=== PATIENT | male | born 1980 ===

== ENCOUNTER → 2018-01-10 15:57 | Outpatient (REF) | payer MEDICAID, SELFPAY ==
[2018-01-10 21:30] LABS: ALT 58 U/L (12-78); AST 29 U/L (15-37); Albumin 4.5 g/dL (3.4-5.0); Alkaline Phosphatase 48 U/L (46-116); Anion Gap 13.4 mmol/L (3-11); BUN 10 mg/dL (7-18); Bilirubin, Total 0.5 mg/dL (0.2-1.0); CO2 23.6 mmol/L (21.0-32.0); CREATININE 0.74 mg/dL (0.70-1.30); Calcium 9.4 mg/dL (8.5-10.1); Chloride 102 mmol/L (98-107); Glucose 78 mg/dL (70-100); Potassium 4.3 mmol/L (3.5-5.1); Sodium 139 mmol/L (136-145)
[2018-01-12 15:20] LABS: Lyme Ab w Rflx to Lyme Confirm Negative
== END ==
LOC: NCHCN 15:57
PROVIDERS: PCP Internal Medicine; Visit Provider Nurse Practitioner
DX: E87.6 Hypokalemia (principal); R55 Syncope and collapse; I45.10 Unspecified right bundle-branch block; R01.1 Cardiac murmur, unspecified
CPT/HCPCS: 80053; 86618

== ENCOUNTER → 2018-01-18 04:23 | Outpatient (CLI) | payer MEDICAID, SELFPAY ==
--- NOTE | 2018-01-22 10:36 | HOLTER_ITS ---
Date of Report: January 22, 2018 Baseline Rhythm: Sinus Rare single PAC. No SVT or atrial fibrillation. Rare single PVC. No VT. Nocturnal heart rates as low as 50-55 bpm, sinus bradycardia. No symptoms. Average heart rate 72 bpm. /ct D/T: 01/22
== END ==
PROVIDERS: PCP Internal Medicine; Visit Provider Nurse Practitioner
DX: R55 Syncope and collapse (principal); R01.1 Cardiac murmur, unspecified; I45.10 Unspecified right bundle-branch block
CPT/HCPCS: 93225

== ENCOUNTER → 2018-01-22 10:09 | Outpatient (CLI) | payer MEDICAID, SELFPAY | PROVIDERS: PCP Internal Medicine; Visit Provider Nurse Practitioner | DX: I49.1 Atrial premature depolarization (principal); I49.3 Ventricular premature depolarization; R00.1 Bradycardia, unspecified | CPT/HCPCS: 93226 ==

== ENCOUNTER → 2018-01-30 01:44 | Outpatient (CLI) | payer MEDICAID, SELFPAY ==
--- NOTE | 2018-01-30 12:30 | MERGE_ITS ---
*[facility]* *[facility]* [address] [place] [address] Date of study: 01/30/2018 Transthoracic Echocardiography M-mode, complete 2D, complete spectral Doppler, and color Doppler *STUDY CONCLUSIONS* Summary: 1. Left ventricle: The cavity size was normal. Wall thickness was normal. Systolic function was at the lower limits of normal. The estimated ejection fraction was 50-55%. Wall motion was normal; there were no regional wall motion abnormalities. The outflow tract showed no obstruction. 2. Aortic valve: There was no stenosis. 3. Right ventricle: The cavity size was normal. Wall thickness was normal. Systolic function was normal. 4. Pulmonary arteries: Pulmonary systolic pressure was within the normal range, in the range of 25mm Hg to 30mm Hg. *PATIENT PRESENTATION* Height: 177.8cm ((70in) ) S/D Pressure: 117 / 73 Weight: 90.7kg ((199.6lb) ) BSA: 2.09m^2 Test start time: 12:35 PM. Test stop time: 01:35 PM. PERFORMING Unknown PERFORMING [facility] TALLOW MAKER RT Jacqueline Andrade)(CT), [facility] ORDERING Valery Coleman REFERRING Valery Coleman *PROCEDURE DATA* Procedure information: The patient was identified by two identifiers. This study was interpreted by [facility]. Pertinent images and digital data are archived for permanent storage and are available for subsequent review. No prior study was available for comparison. Study status: Routine. Transthoracic echocardiography. M-mode, complete 2D, complete spectral Doppler, and color Doppler. A Transthoracic Echocardiogram was performed. Scanning was performed from the parasternal, apical, subcostal, and suprasternal notch acoustic windows. Images were obtained using an [id number] cardiac ultrasound machine. Image quality was adequate. Study completion: The patient tolerated the procedure well. There were no complications. History: PMH: Syncope. RBBB, murmur. *CARDIAC ANATOMY* Left ventricle: The cavity size was normal. Wall thickness was normal. Systolic function was at the lower limits of normal. The estimated ejection fraction was 50-55%. Wall motion was normal; there were no regional wall motion abnormalities. The outflow tract showed no obstruction. Diastolic parameters were normal. Aortic valve: Trileaflet; normal thickness leaflets. Mobility was not restricted. Doppler: Transvalvular velocity was within the normal range. There was no stenosis. There was no significant regurgitation. VTI ratio of LVOT to aortic valve: 0.61. Valve area (VTI): 2.5cm^2. Indexed valve area (VTI): 1.2cm^2/m^2. Peak velocity ratio of LVOT to aortic valve: 0.62. Valve area (Vmax): 2.6cm^2. Indexed valve area (Vmax): 1.2cm^2/m^2. Mean velocity ratio of LVOT to aortic valve: 0.72. Valve area (Vmean): 3cm^2. Indexed valve area (Vmean): 1.4cm^2/m^2. Mean gradient (S): 5.3mm Hg. Peak gradient (S): 11.1mm Hg. Aorta: Aortic root: The aortic root was normal in size. Ascending aorta: The ascending aorta was normal in size. Mitral valve: Mildly thickened leaflets. Mobility was not restricted. Doppler: Transvalvular velocity was within the normal range. There was no evidence for stenosis. There was trivial regurgitation. Valve area by pressure half-time: 3.9cm^2. Indexed valve area by pressure half-time: 1.9cm^2/m^2. Left atrium: The atrium was normal in size. Right ventricle: The cavity size was normal. Wall thickness was normal. Systolic function was normal. Pulmonic valve: Structurally normal valve. Doppler: Transvalvular velocity was within the normal range. There was no evidence for stenosis. There was trivial regurgitation. Peak gradient (S): 4mm Hg. Tricuspid valve: Structurally normal valve. Doppler: Transvalvular velocity was within the normal range. There was no evidence for stenosis. There was no significant regurgitation. Pulmonary artery: Pulmonary systolic pressure was within the normal range, in the range of 25mm Hg to 30mm Hg. Right atrium: The atrium was normal in size. Pericardium: There was no pericardial effusion. Systemic veins: Inferior vena cava: Well visualized. The vessel was dilated. The respirophasic diameter changes were in the normal range (greater than or equal to 50%). Measurements Left ventricle Value Reference LV ID, ED, PLAX 5.7 cm 3.5 - 6.0 LV ID, ES, PLAX (H) 4.2 cm 2.1 - 4.0 LV PW thickness, ED, PLAX 1.0 cm LV end-diastolic volume, 1-p A2C 117 ml LV ejection fraction, 1-p A2C 56 % LV end-diastolic volume, 1-p A4C 111 ml LV ejection fraction, 1-p A4C 50 % LV e', lateral 0.172 m/sec LV E/e', lateral 4 LV e', medial 0.099 m/sec LV E/e', medial 7 LV e', average 0.136 m/sec LV E/e', average 5 Ventricular septum Value Reference IVS thickness, ED, PLAX 0.9 cm LVOT Value Reference LVOT ID, A-P 2.3 cm LVOT area 4.2 cm^2 LVOT peak velocity, S 1.04 m/sec LVOT mean velocity, S 0.76 m/sec LVOT VTI, S 22.5 cm LVOT peak gradient, S 4.3 mm Hg LVOT mean gradient, S 2.5 mm Hg Stroke volume (SV), LVOT DP 94 ml Stroke index (SV/bsa), LVOT DP 45 ml/m^2 Aortic valve Value Reference Aortic valve peak velocity, S 1.7 m/sec Aortic valve mean velocity, S 1.05 m/sec Aortic valve VTI, S 37.0 cm Aortic mean gradient, S 5.3 mm Hg Aortic peak gradient, S 11.1 mm Hg VTI ratio, LVOT/AV 0.61 Aortic valve area, VTI 2.5 cm^2 Velocity ratio, peak, LVOT/AV 0.62 Aortic valve area, peak velocity 2.6 cm^2 Velocity ratio, mean, LVOT/AV 0.72 Aortic valve area, mean velocity 3 cm^2 Aortic valve area/bsa, mean velocity 1.4 cm^2/m^2 Aorta Value Reference Aortic root ID, ED 3.2 cm Ascending aorta ID, A-P, S 3.0 cm Left atrium Value Reference LA ID, A-P, ES 3.6 cm LA ID/bsa, A-P 1.7 cm/m^2 <=2.2 LA area, ES, A4C 19.5 cm^2 8.8 - 23.4 LA area, ES, A2C 17 cm^2 LA volume/bsa, ES, 1-p A4C 30 ml/m^2 LA volume, ES, 2-p 50 ml LA volume/bsa, ES, 2-p 24 ml/m^2 LA/aortic root ratio 1.12 Mitral valve Value Reference Mitral E-wave peak velocity 0.7 m/sec Mitral A-wave peak velocity 0.46 m/sec Mitral deceleration time 194 ms 150 - 230 Mitral pressure half-time 56 ms Mitral E/A ratio, peak 1.52 Mitral valve area, PHT, DP 3.9 cm^2 Pulmonary veins Value Reference Pulmonary vein peak velocity, S 0.39 m/sec Pulmonary vein peak velocity, D 0.53 m/sec Pulmonary vein velocity ratio, peak, 0.74 S/D Tricuspid valve Value Reference Tricuspid regurg peak velocity 2.4 m/sec Tricuspid peak RV-RA gradient 22.3 mm Hg Right atrium Value Reference RA area, ES, A4C 14.9 cm^2 8.3 - 19.5 Pulmonic valve Value Reference Pulmonic peak gradient, S 4 mm Hg Legend: (L) and (H) daphne values outside specified reference range. I have personally reviewed the images and have reviewed and edited the reported findings. Electronically signed by Amor Broderick 01/30/2018 14:40
== END ==
PROVIDERS: PCP Internal Medicine; Visit Provider Nurse Practitioner
DX: R55 Syncope and collapse (principal); I45.10 Unspecified right bundle-branch block; R01.1 Cardiac murmur, unspecified
CPT/HCPCS: 93306

== ENCOUNTER 2020-12-04 09:04 | Outpatient (REF) | payer SELFPAY ==
[2020-12-04 21:47] LABS: Calculated LDL 179 mg/dL (<100); Cholesterol 259 mg/dL (<200); HDL Cholesterol 63 mg/dL (40-60); Triglyceride 88 mg/dL (<150)
== END 2020-12-04 09:05 | disposition home or self-care (01) ==
LOC: NCHCN 09:04
PROVIDERS: PCP Internal Medicine; Visit Provider Internal Medicine
DX: Z00.00 Encounter for general adult medical examination without abnormal findings (principal); Z13.220 Encounter for screening for lipoid disorders
CPT/HCPCS: 80061

== ENCOUNTER 2021-05-12 02:46 | Outpatient (CLI) | payer SELFPAY ==
[2021-05-13 09:41] LABS: Syphilis Serology (RPR) Negative (Negative)
[2021-05-13 10:45] LABS: Hepatitis B Surface Ag Negative (Negative)
[2021-05-13 11:19] LABS: Hepatitis C Ab w Rflx HCV PCR Negative (Negative)
[2021-05-13 11:23] LABS: HIV-1/2 Ag & Ab Screen Negative (Negative)
[2021-05-13 13:35] LABS: CMV Ab, IgM Negative (Negative)
[2021-05-13 15:34] LABS: Chlamydia Result Negative (Negative); GC Result Negative (Negative)
[2021-05-14 01:06] LABS: HTLV-I/II Ab Screen Negative (Negative)
[2021-05-19 13:26] LABS: Hep B Core Antibody Negative (Negative)
== END 2021-05-12 02:47 | disposition home or self-care (01) ==
LOC: LBO 02:46
PROVIDERS: PCP Internal Medicine; Visit Provider Obstetrics & Gynecology Reproductive Endocrinology
DX: Z11.3 Encounter for screening for infections with a predominantly sexual mode of transmission (principal); Z11.4 Encounter for screening for human immunodeficiency virus [HIV]; Z11.59 Encounter for screening for other viral diseases
CPT/HCPCS: 36415; 86704; 86790; 86803; 87340; 87389; 87491; 87591; 86592; 86644; 86645

== ENCOUNTER 2021-12-07 15:46 | Outpatient (REF) | payer OTHER, SELFPAY ==
[2021-12-08 11:14] LABS: Lyme Ab w Rflx to Lyme Confirm Negative (Negative)
== END 2021-12-07 15:47 | disposition home or self-care (01) ==
LOC: NCHCN 15:46
PROVIDERS: PCP Internal Medicine; Visit Provider Internal Medicine
DX: Z00.00 Encounter for general adult medical examination without abnormal findings (principal); M25.561 Pain in right knee
CPT/HCPCS: 86618

== ENCOUNTER 2021-12-08 19:31 | Emergency (ER) | payer OTHER, SELFPAY ==
[2021-12-08 19:44] VITALS: BP 129/66; PULSE 74; RESP 14; TEMP 36.7; O2SAT 98
--- NOTE | 2021-12-08 20:30 | DI.RAD_ITS ---
Exam(s) XR FOOT RT COMPLETE EXAM: XR FOOT RT COMPLETE CLINICAL HISTORY: jackhammered great toe, pain. TECHNIQUE: 2D digital imaging was performed of the right foot. Three images were obtained. AP, obl ique and lateral views were obtained. COMPARISON: No exams were available for comparison FINDINGS: BONES: No acute fracture is present. No bony destructive lesion is seen. JOINTS: No dislocation present. SOFT TISSUE: Normal. IMPRESSION: Unremarkable radiographs of the right foot. DATA REPOSITORY: RADIATION DOSE DELIVERED:
--- NOTE | 2021-12-08 20:40 | ED.GENADUL_ITS ---
Discharge Plan Disposition Patient Disposition: HOME Condition: Stable Discharge Details Chief Complaint: Orthopedic Clinical Impression: Crush injury, toe Primary Care Provider: Terrance Alves ED Provider: Donnell Colin Home Meds and New Rx's Prescriptions: No Action epinephrine [EpiPen 2-Toi] 0.3 MG/0.3 ML auto-injector 0.3 mg IJ PRN PRNQty: 1 0RF Discharge Instructions Instructions: Foot Contusion (ED) Additional Instructions: Please use hard soled shoe and crutches as needed. Please ice and elevate foot, use ibuprofen and/or acetaminophen as needed. Please follow-up with orthopedic surgery if your toe is not healing or beginning to feel better within the next week if you develop acute worsening pain swelling change in temperature or appearance of toe or any worsening symptoms please return to the emergency department for evaluation. Medical Decision Making 41-year-old male presents today after sustaining injury with jackhammer to the great toe, which resolved and still has great toe sneaker while working today, pain localized to the distal aspect of great toe, no deformity, patient has strong DP pulse, sensation intact, motor function in foot and ankle intact, no fibular head tenderness, soft compartments, warm well perfused ambulatory without assistance, does have mild to moderate subungual hematoma. Patient multiple doses of naproxen before arrival. Is extremely sensitive to opioid analgesia. Will acetaminophen, will obtain x-ray, high clinical suspicion for distal phalanx fracture versus less likely dislocation, at this point do not want to trephinate subungual hematoma for fear complicating fracture from right close to an open fracture. We will continue with pain control analgesia elevation, likely will refer to orthopedic surgery, hard soled shoe and crutches as needed. 21: 52 no evidence of fracture on x-ray, patient is feeling somewhat better after Tylenol, counseled extensively that initial x-rays are sometimes insensitive to acute fracture, consider bony contusion versus occult fracture. Neurovascular exam intact. Patient is able to ambulate. Will be given [place] shoe and orthopedic follow-up as needed. Given strict return precautions, instructed to elevate ice and rest foot. HPI General Date/Time Provider Initiated Documentation: 12/08/21 20:23 . HPI Narrative: 41-year-old male sustained trauma to his right great toe while working today, dropped an active jackhammer on his right great toe; able to bear weight but with persistent pain. No other injuries. Related Data Home Medications Medication Instructions Recorded Confirmed epinephrine 0.3 mg/0.3 mL 0.3 mg (0.3 mL) IJ PRN PRN ##1 01/05/18 12/08/21 injection, auto-injector (EpiPen 2-Toi) Previous Rx's Medication Instructions Recorded epinephrine 0.3 mg/0.3 mL 0.3 mg (0.3 mL) IJ PRN PRN ##1 01/05/18 injection, auto-injector (EpiPen 2-Toi) Allergies Allergy/AdvReac Type Severity Reaction Status Date / Time No Known Allergies Allergy Unverified 12/08/21 19:47 General Stated Complaint: Orthopedic HERMAN: 4 Review of Systems Narrative: Review of Systems Constitutional: negative Eyes: negative ENT: negative Cardiovascular: negative Respiratory: negative Gastrointestinal: negative : negative Musculoskeletal: Right great toe pain Skin: negative Neurologic: negative Psych: negative PFSH All Active Problems (Updated 12/08/21 @ 21:56 by Donnell Colin MD) Crush injury, toe (Acute) Social History Smoking/Tobacco Use Status: Never Smoking risk assessment performed?: Yes Alcohol Intake: current Alcohol Intake frequency: a few times a week Alcohol type: beer Drug use: Never Substance use type: does not use Do you feel safe at home: Yes Do you feel safe in your relationship?: Yes Exam Narrative Exam Narrative: Physical Examination General: alert, awake, cooperative, resting comfortably, no acute distress HEENT: normocephalic, atraumatic; PERRL, EOM intact, conjunctiva normal; no nasal discharge; moist mucous membranes, oral and pharyngeal mucosa normal, tolerating secretions Neck: supple, trachea midline; full ROM Chest: normal to inspection Respiratory: normal respiratory effort, speaking in full sentences, clear to auscultation, no wheezing, rales or rhonchi Cardiac: regular rate, regular rhythm, S1S2 intact, no murmurs rubs or gallops GI: abdomen soft, non-tender, non-distended; no palpable mass or hepatosplenomegaly Skin: no lesions, rashes or trauma appreciated Neuro: AAOx3, normal speech, moving all extremities Extremities: Sensation and mobility in toes foot and ankle intact, no malleoli or tenderness to calcaneal tenderness, no foot deformity, patient does have some swelling to distal aspect of great toe, does have mild to moderate subungual hematoma under the great toenail, good capillary refill warm well perfused soft compartments ambulatory without assistance, no fibular head tenderness Psych: Appropriate mood and affect Course Vital Signs Vital signs: Vital Signs Temperature 36.7 C 12/08/21 19:44 Pulse 74 12/08/21 19:44 Respiratory Rate 14 12/08/21 19:44 Blood Pressure 129/66 12/08/21 19:44 Pulse Oximetry 98 12/08/21 19:44 Temperature 36.7 C 12/08/21 19:44 Temperature Source Temporal Artery Scan 12/08/21 19:44 Pulse 74 12/08/21 19:44 Respiratory Rate 14 12/08/21 19:44 Respiratory Effort Non-Labored 12/08/21 19:47 Blood Pressure 129/66 12/08/21 19:44 Blood Pressure Position Sitting 12/08/21 19:44 Pulse Oximetry 98 12/08/21 19:44 Oxygen Delivery Method Room Air 12/08/21 19:44 Oxygen Flow Rate 0 12/08/21 19:44 Pain Level 10 12/08/21 19:47 PAWSS Have you Been Recently Intoxicated or Drunk Within the Last 30 days?: No Have you Ever Experienced Previous Episodes of Alcohol Withdrawal?: No Have you ever Experienced Withdrawal Seizures?: No Have you ever Experienced Delirium Tremens(DT)s?: No Have you ever undergone Alcohol Rehabilitation Treatment (i.e, inpt ot outpatient treatment programs)?: No Have you ever Experienced Blackouts?: No Have you ever Combined Alcohol with other Downers within the last 90 days?: No Have you ever Combined Alcohol with any other Substance of Abuse during the last 90 days?: No Positive Blood Alcohol level on Presentation? [PCS.BAL]: No Evidence of Increased Autonomic Activity (i.e. HR>120, tremor, sweating, agitation, nausea)?: No Result: 0
[2021-12-08] MEDS: Acetaminophen 325 MG TAB 650 MG PO (20:44)
--- NOTE | 2021-12-08 21:38 | DI.VRAD_ITS ---
PROCEDURE INFORMATION: Exam: XR Right Foot Exam date and time: 12/08/2021 8:48 PM Age: 41 years old Clinical indication: Other: Jackhammered great toe, pain TECHNIQUE: Imaging protocol: Radiologic exam of the Right foot. Views: 3 or more views. COMPARISON: No relevant prior studies available. FINDINGS: Bones/joints: Small os tibialis externum incidentally noted. No fractures. Normal alignment is maintained in the midfoot, hindfoot, and forefoot. Joint spaces are well-maintained. No blastic or lytic lesions. No gross ankle joint effusion. No hindfoot coalition. Soft tissues: No periostitis or osteolysis. No gross soft tissue abnormalities. No radiopaque foreign bodies. Other findings: Normal mineralization. IMPRESSION: No acute findings. Dictated and Authenticated by: Ta Kuo MD. Ordering:LINH Jacobo MD
== END 2021-12-08 22:06 | disposition home or self-care (01) ==
PROVIDERS: Emergency Provider Emergency Medicine; PCP Internal Medicine
DX: S97.111A Crushing injury of right great toe, initial encounter (principal); S90.111A Contusion of right great toe without damage to nail, initial encounter; W31.89XA Contact with other specified machinery, initial encounter; Y99.0 Civilian activity done for income or pay
CPT/HCPCS: 99283; 73630; 99282

== ENCOUNTER 2022-03-10 03:02 | Outpatient (CLI) | payer OTHER, SELFPAY ==
--- NOTE | 2022-03-10 | DI.RAD_ITS ---
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 TECHNIQUE: 2D digital imaging was performed of the right shoulder. Five images were obtained. AP, Grashey, Y-view and axillary views were obtained. COMPARISON: No exams were available for comparison FINDINGS: BONES: No acute fracture is present. No bony destructive lesion is seen. JOINTS: No dislocation present. SOFT TISSUE: Normal. IMPRESSION: Unremarkable radiographs of the right shoulder. DATA REPOSITORY: RADIATION DOSE DELIVERED:
--- NOTE | 2022-03-10 | DI.RAD_ITS ---
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 TECHNIQUE: 2D digital imaging was performed of the left shoulder. Five images were obtained. AP, G rashey, Y-view and axillary views were obtained. COMPARISON: No exams were available for comparison FINDINGS: BONES: No acute fracture is present. No bony destructive lesion is seen. There is a small chronic oss icle inferior to the glenoid. JOINTS: No dislocation present. SOFT TISSUE: Normal. IMPRESSION: Unremarkable radiographs of the left shoulder. DATA REPOSITORY: RADIATION DOSE DELIVERED:
== END 2022-03-10 03:22 ==
LOC: DI 03:02
PROVIDERS: PCP Internal Medicine; Visit Provider Internal Medicine
DX: M25.511 Pain in right shoulder (principal); M25.512 Pain in left shoulder
CPT/HCPCS: 73030

== ENCOUNTER 2022-07-08 15:30 | Outpatient (REF) | payer OTHER, SELFPAY ==
[2022-07-08 21:12] LABS: HCT 43.1 % (40.0-50.0); HGB 14.4 g/dL (13.5-17.5); MCH 29.9 pg (27.0-33.0); MCHC 33.4 % (32.0-36.0); MCV 89 fL (80-95); MPV 10.3 fL (8.0-11.0); Platelet Count 305 10^3/uL (130-400); RBC 4.82 10^6/uL (4.36-5.78); RDW 13.3 % (11.8-14.1); RDW-SD 43.6 fL; WBC 7.28 10^3/uL (4.4-10.8)
[2022-07-08 21:35] LABS: ALT 67 U/L (16-63); AST 35 U/L (15-37); Albumin 4.2 g/dL (3.4-5.0); Alkaline Phosphatase 53 U/L (46-116); Anion Gap 5.9 mmol/L (3-11); BUN 12 mg/dL (7-18); Bilirubin, Total 0.4 mg/dL (0.2-1.0); CO2 29.1 mmol/L (21.0-32.0); CREATININE 0.9 mg/dL (0.70-1.30); Calcium 9.6 mg/dL (8.5-10.1); Chloride 103 mmol/L (98-107); Estimated GFR 109.36 (mL/min/1.73m2); Glucose 94 mg/dL (74-106); Magnesium 1.9 mg/dL (1.8-2.4); Potassium 4.3 mmol/L (3.5-5.1); Sodium 138 mmol/L (136-145); TSH (W/Ref FT4) 0.83 uIU/mL (0.36-3.74); Total Protein 7.4 g/dL (6.4-8.2)
== END 2022-07-08 15:31 | disposition home or self-care (01) ==
LOC: NCHCN 15:30
PROVIDERS: PCP Internal Medicine; Visit Provider Family Medicine
DX: I49.9 Cardiac arrhythmia, unspecified (principal)
CPT/HCPCS: 80053; 85027; 83735; 84443

== ENCOUNTER 2022-08-18 08:06 | Outpatient (CLI) | payer OTHER, SELFPAY ==
--- NOTE | 2022-08-18 10:34 | W.CARDEVENT ---
Date of service: 08/18/22 Time of Service: 10:34 Cardiac Event Recorder Referring Provider:: Terrance Alves Indications:: Cardiac arrhythmia Cardiac Event Note: This is a 30-day lan support specialist. Predominant rhythm is sinus. Average heart rate was 67. Minimum 55, maximum 137 There were rare ventricular ectopic beats. There was one 3 beat run of nonsustained ventricular tachycardia which occurred during sleep . there was no atrial fibrillation, no high-grade AV block, no SVT, no pauses greater than 3 seconds Patient's symptoms were reported which corresponded both to sinus rhythm, and to rare PVCs
== END 2022-08-18 08:07 | disposition home or self-care (01) ==
LOC: CARDOPNVT 08:06
PROVIDERS: PCP Internal Medicine; Visit Provider Internal Medicine Cardiovascular Disease
DX: I49.9 Cardiac arrhythmia, unspecified (principal)

== ENCOUNTER 2023-07-10 18:16 | Outpatient (REF) | payer OTHER, SELFPAY ==
--- OUTSIDE RECORDS SUMMARY | 2023-07-10 18:23 | XMS_ITS | Continuity of Care Document ---
Author Name Unknown Organization [facility] Ambulatory Clinics Address [address] [place] [address] Care Team Providers Care Refinery Technician Name Role Phone JOCY MELGAR Primary Care Physician Encounter [facility] NBR [id number] Date(s): 06/27/23 - 06/27/23 [facility] [address] [place] [address] [place] Discharge Disposition: Home Allergies, Adverse Reactions, Alerts No Known Medication Allergies Assessment and Plan Future Appointments Medications Advair HFA 230 mcg-21 mcg/inh inhalation aerosol 2 puffs, Inhale, BID, # 1 EA, 0 Refill(s), Pharmacy: [facility] #[id number] Start Date: 05/20/23 Stop Date: 06/19/23 Status: Ordered azithromycin 250 mg oral tablet See Instructions, Oral, Daily, Take 2 tabs on day 1 and 1 tab on day 2-5, # 6 tab, 0 Refill(s), Pharmacy: [facility] #[id number] Start Date: 05/20/23 Status: Ordered Tessalon Perles 100 mg oral capsule 100 mg = 1 cap, Oral, TID, PRN as needed for cough, # 21 cap, 0 Refill(s), Pharmacy: [facility] #[id number] Start Date: 05/20/23 Stop Date: 05/27/23 Status: Ordered Patient Care team information Care Team Personnel Name: JOCY MELGAR Position: No Access Member Role: Primary Care Physician Address: Address: [address] [place] [id number] Care Team Related Persons Name: BERNARD VIVAR Name: BERNARD VIVAR Address: Home [address] [place] [address] Address: Mailing [address] [place], [place] [id number]
--- OUTSIDE RECORDS SUMMARY | 2023-07-10 18:23 | XMS_ITS | Continuity of Care Document ---
Author Name Unknown Organization [facility] Ambulatory [facility]ics Address [address] [place] [address] Care Team Providers Care Zmt Operator Name Role Phone JOCY MELGAR Guera Primary Care Physician Encounter [facility] NBR [id number] Date(s): 06/30/23 - 06/30/23 [facility] [address] [place], [place] [address] Encounter Diagnosis Rupture of medial head of gastrocnemius(Discharge Diagnosis) - 06/30/23 Discharge Disposition: Home or Self Care Attending Physician: Gustavo Hayes MD Referring Physician: VALENTINO BAKER NP Allergies, Adverse Reactions, Alerts No Known Medication Allergies Substance Reaction Severity Status Bees/Stinging Insects Unknown Active Medications metoprolol succinate 25 mg =, 0 Refill(s) Start Date: 06/30/23 Status: Ordered Problem List Condition Confirmation Course Effective Dates Status H ealth Status Informant Rupture of medial head of gastrocnemius Confirmed Active Vital Signs Most recent to oldest [Reference Range]: 1 Peripheral Pulse Rate [60-100 bpm] 67 bp m (06/30/23 9:15 AM) Blood Pressure [90-140/60-90 mmHg] 124/8 0mmHg (06/30/23 9:15 AM) Mean Arterial Pressure, Cuff [70-110 mmH g] 95 mmHg (06/30/23 9:15 AM) Weight 109.77 kg (06/30/23 9:15 AM) Weight Measured (lbs) 242.001 lb (06/30/23 9:15 AM) Weight Dosing 109.770 kg (06/30/23 9:15 AM) Height 177.8 cm (06/30/23 9:15 AM) Height/Length Measured (inches) 70 inch (06/30/23 9:15 AM) BSA Measured 2.33 m2 (06/30/23 9:15 AM) Body Mass Index 34.72 kg/m2 (06/30/23 9:15 AM) Social History Social History Type Response Tobacco Never tobacco user T obacco Use:. Sex Physician Outpatient Note * Gustavo Hayes MD: PERFORM Event Display: Office Clinic Note Physician Authored Date: [id number] MARLEN VIVAR :1980 Age:43 years Sex:Male Visit Date:06/30/2023 Primary Care Physician: JOCY MELGAR Chief Complaint Right Calf pain History of Present Illness Patient is a 43-year-old gentleman who??5 days ago was snowboarding??it was??fair amount of powder it was??coming across the mountain leaning forward when he felt??a sharp pain to the??back of his??right calf,??he said he felt as if somebody had taken a bat and hit him in that area.?? He tried to get down the mountain??but??said he fell several times and ultimately??was brought down on toboggan. ??He then went to urgent care??and comes in today for evaluation. ??He does note he is significantlyimproved since??the day of injury but still??is having to walk on the side of his foot.?? When asked to localize the pain he points to the proximal aspect of the gastrocnemius. Physical Exam Vitals & Measurements HR:??67??(Peripheral)?? BP:??124/80?? SpO2:??96%?? HT:??177.8??cm?? WT:??109.77??kg?? BMI:??34.72?? Pain Score:??0?? BSA:??2.33?? Examination of B ankles:?? Inspection: There is no erythema ecchymosis or edema. There is no calor to palpation. ? Palpation: There is no tenderness to palpation over the bony landmarks, including the anterior tibiotalar joint, the medial and lateral malleolus, the navicular and the base of the fifth metatarsal. ? Range of motion: Range of motion is normal in plantar flexion and dorsiflexion. It is normal in inversion and eversion. Talar tilt testing is negative. ? Strength testing: Strength is 5 out of 5 in all planes of motion. ? Vascular exam: Posterior tibialis and dorsalis pedis pulses are +2. Distal capillary refill is instantaneous. ? Neurologic exam: Light touch sensation is intact in all dermatomes. ? Gait testing: Gait is nonantalgic. There is minimal ankle eversion on weightbearing. ?? On palpation of the Achilles??is felt to be??intact it is nontender to palpation patient has 5 out of 5 plantarflexion strength without difficulty or pain.?? He does have tenderness proximally over the medial head of the gastroc, the knee has a full painless range of motion no effusion no instability Assessment/Plan 1.??Rupture of medial head of gastrocnemius??S86.119A Patient with what I believe is a??tear of the medial head of the gastroc, I had a??discussion with the patient about??the anatomy, treatment for this and long- term outcomes. ??I have reassured the patient that within 2 or 3 weeks likely his pain will resolve and he will go back to full activities with no disability whatsoever.?? Right now he is really struggling because of the pains on the put him in a cam walker boot??and he will wean out of this as??he is??able and will let pain decide.?? If in 3 to 4 weeks he still having pain he will return to see me. Problem List/Past Medical History Ongoing Rupture of medial head of gastrocnemius Historical No qualifying data Medications metoprolol succinate, 25 mg Allergies Bees/Stinging Insects No Known Medication Allergies Social History Electronic Cigarette/Vaping Electronic Cigarette Use: Never. Tobacco Never tobacco user Tobacco Use:. Electronically Signed on 06/30/23 09:55 AM Gustavo Hayes MD Patient Care team information Care Team Personnel Name: JOCY MELGAR Position: No Access Member Role: Primary Care Physician Address: Address: [address] [place] [id number] [place] [address] Care Team Related Persons Name: BERNARD VIVAR Name: BERNARD VIVAR Address: Home [address] [place] [address] Address: Mailing [address] [place], [place] [id number]
--- OUTSIDE RECORDS SUMMARY | 2023-07-10 18:23 | XMS_ITS | Continuity of Care Document ---
Author Name Unknown Organization [facility] Address [address] [place] [address] Care Team Providers Care Algorithm Developer Name Role Phone Terrance Alves Guera Primary Care Physician [phone] Encounter [facility] FIN NBR [id number] Date(s): 05/06/22 - 05/06/[address] [address] Discharge Disposition: Home or Self Care Attending Physician: SANTHOSH NORMAN Admitting Physician: SANTHOSH NORMAN Referring Physician: SANTHOSH NORMAN Assessment and Plan Diagnostic Tests Pending * HTLV-I/II Antibodies, Qual LC 05/06/22 Results Laboratory List Name Date ABO/Rh Echo 05/06/22 CMV Abs IgG/IgM LC 05/06/22 Chlamydia trachomatis (GeneXpert) HIV Ag/Ab Combo 1/2 05/06/22 Hepatitis B Surface Antigen 05/06/22 Hepatitis C Antibody 05/06/22 Syphilis Abs Qual 05/06/22 Most recent to oldest [Reference Range]: 1 Hep Bs Ag [Non Reactive] Non Reactive (05/06/22 11:22 AM) Hep C Ab [Non Reactive] Non Reactive (05/06/22 11:22 AM) Cytomegalovirus (CMV) Ab, IgG LC [0.00-0 .59 unit/mL] <0.60 unit/mL 1 *NA* (05/06/22 11:22 AM) Cytomegalovirus (CMV) Ab, IgM LC [0.0-29 .9 AU/mL] <30.0 AU/mL 2 *NA* (05/06/22 11:22 AM) Chlamydia trachomatis DNA -GeneXpert [No t Detected] Not Detected (05/06/22 11:22 AM) Syphilis Abs Qual [Non Reactive] Non [place] ctive (05/06/22 11:22 AM) ABO/Rh Echo A POS *Unknown* (05/06/22 11:22 AM) HIV 1/2 Ag/Ab Combo by CMIA [Non Reactiv e] Non Reactive (05/06/22 11:22 AM) 1Result Comment: Negative <0.60 Equivocal 0.60 - 0.69 Positive >0.69 2Result Comment: Negative <30.0 Equivocal 30.0 - 34.9 Positive >34.9 A positive result is generally indicative of acute infection, reactivation or persistent IgM production. Performed At: RN [facility] [address] [id number] Yoav Doan MD Ph:[phone] Patient Care team information Personnel Name: Terrance Alves Address: Address: [address] [place] [id number] [place] [address]
--- OUTSIDE RECORDS SUMMARY | 2023-07-10 18:23 | XMS_ITS | Continuity of Care Document ---
Author Name Unknown Organization [facility] Address [address] [place] [address] Care Team Providers Care Intervention Analyst Name Role Phone TALIA JOCY Lynne Primary Care Physician [phone] Encounter [facility] FIN NBR [id number] Date(s): 05/20/23 - 05/20/23 [facility] [address] [place] [address]- Encounter Diagnosis Bronchitis(Discharge Diagnosis) - 05/20/23 Discharge Disposition: Home or Self Care Attending Physician: Sulma Dawkins PA-C Allergies, Adverse Reactions, Alerts No Known Medication Allergies Medications Advair HFA 230 mcg-21 mcg/inh inhalation aerosol 2 puffs, Inhale, BID, # 1 EA, 0 Refill(s), Pharmacy: [facility][id number] Start Date: 05/20/23 Stop Date: 06/19/23 Status: Ordered azithromycin 250 mg oral tablet See Instructions, Oral, Daily, Take 2 tabs on day 1 and 1 tab on day 2-5, # 6 tab, 0 Refill(s), Pharmacy: [facility] #[id number] Start Date: 05/20/23 Status: Ordered Tessalon Perles 100 mg oral capsule 100 mg = 1 cap, Oral, TID, PRN as needed for cough, # 21 cap, 0 Refill(s), Pharmacy: [facility] #[id number] Start Date: 05/20/23 Stop Date: 05/27/23 Status: Ordered Vital Signs Most recent to oldest [Reference Range]: 1 Temperature Tympanic [36.6-38.1 Deg C] 3 7.3 Deg C (05/20/23 4:38 PM) Peripheral Pulse Rate [60-100 bpm] 72 bp m (05/20/23 4:38 PM) Blood Pressure [90-140/60-90 mmHg] 138/7 5mmHg (05/20/23 4:38 PM) Mean Arterial Pressure, Cuff [70-110 mmH g] 96 mmHg (05/20/23 4:38 PM) Physician Outpatient Note * Sluma Dawkins PA-C: PERFORM Event Display: Office Clinic Note Physician Authored Date: [id number] MARLEN VIVAR :1980 Age:42 years Sex:Male Visit Date:05/20/2023 Primary Care Physician: JOCY MELGAR Chief Complaint Patient was in [facility] two weeks ago. His daughter had a cough. He developed a cough when he gothome. It is producing white thick mucus. Patient denies any SOB History of Present Illness This is a 42-year-old male who presents for evaluation of ongoing cough. ??Patient has been??sick for about 2-1/2 weeks now.?? He notes that he has a persistent, wet,??hacking cough. ??He has been feeling fatigued and the cough has been keeping him from sleeping.?? He??notes he has a headache when he coughs as well as a sore throat when he coughs but does not have a headache or sore throat at baseline. ??He denies any??fever, chills, myalgia.?? He denies any chest pain.?? He noticed over the past few days that his chest is feeling??more tight and he is feeling more short of breath with exertion. Physical Exam Vitals & Measurements T:??37.3?C ??(Tympanic)?? HR:??72??(Peripheral)?? BP:??138/75?? SpO2:??99%?? General: A&O x 3, well-built and hydrated, no acute distress Eyes: PERRLA, no redness or drainage Ears: bilateral TMs translucent and pearly zarco Nose: nares moist and patent Mouth: moist mucous membranes without lesions Throat: oropharynx and tonsils without erythema or exudate Neck:??5/5 flexion and extension, supple, no lymphadenopathy Chest: symmetric rise Heart: normal S1S2, no murmurs, rubs, gallops Lungs: equal and symmetric respiratory effort, mildly diminished air movement bilaterally,??lungs clear to auscultation without wheezes, rales, rhonchi Extremities: no cyanosis or pallor, no clubbing or edema??equal and symmetric pulses Assessment/Plan 1.??Bronchitis??J40 Patient presenting with 2 and half weeks of clinical signs of bronchitis,??now beginning to worsen a bit.?? I sent a prescription for an Advair inhaler to his pharmacy to help??bronchodilation and reduce inflammation in the lungs. ??Advise he take 2 puffs in the morning and 2 puffs in the evening.?? I also sent a prescription for Tessalon Perles, he can take 1 As needed up to 3 times a day.?? Encouraged use of a humidifier. ??Prescription sent for azithromycin. ??He is to follow-up for any worsening cough, shortness of breath, fever. ??He agrees with plan Ordered: azithromycin 250 mg oral tablet, See Instructions, Oral, Daily, Take 2 tabs on day 1 and 1 tab on day 2-5, # 6 tab, 0 Refill(s), Pharmacy: [facility] #[id number] Tessalon Perles 100 mg oral capsule, 100 mg = 1 cap, Oral, TID, PRN as needed for cough, # 21 cap, 0 Refill(s), Pharmacy: [facility] #[id number] Advair HFA 230 mcg-21 mcg/inh inhalation aerosol, 2 puffs, Inhale, BID, # 1 EA, 0 Refill(s), Pharmacy: [facility] #[id number] ?? Problem List/Past Medical History Ongoing No qualifying data Historical No qualifying data Medications Advair HFA 230 mcg-21 mcg/inh inhalation aerosol, 2 puffs, Inhale, BID azithromycin 250 mg oral tablet, See Instructions, Oral, Daily Tessalon Perles 100 mg oral capsule, 100 mg= 1 cap, Oral, TID, PRN Allergies No Known Medication Allergies Electronically Signed on 05/20/23 04:57 PM Sulma Dawkins PA-C Patient Care team information Care Team Personnel Name: JOCY MELGAR Position: No Access Member Role: Primary Care Physician Address: Address: [address] [place] [address]- Care Team Related Persons Name: BERNARD VIVAR Name: BERNARD VIVAR Address: Home [address] [place] [address] Address: Mailing [address], [place] [id number]
[2023-07-18 14:34] LABS: Food-Seafood Panel <0.10 kU/L (<0.70); Milk, IgE <0.10 kU/L (<0.70); Peanut IgE <0.10 kU/L (<0.70)
[2023-07-21 14:29] LABS: Misc Referral (MAYO) See Comments
[2023-07-21 14:34] LABS: Beef IgE <0.10 kU/L (<0.70); Turkey IgE <0.10 kU/L (<0.70)
== END 2023-07-10 18:17 | disposition home or self-care (01) ==
LOC: NCHCN 18:16
PROVIDERS: PCP Internal Medicine; Visit Provider Family Medicine
DX: T78.2XXD Anaphylactic shock, unspecified, subsequent encounter (principal); Z87.892 Personal history of anaphylaxis
CPT/HCPCS: 83520; 86003

== ENCOUNTER 2024-03-26 16:28 | Outpatient (REF) | payer OTHER, SELFPAY ==
[2024-03-26 16:03] LABS: HCT 45.8 % (40.0-50.0); HGB 15.4 g/dL (13.5-17.5); MCH 29.8 pg (27.0-33.0); MCHC 33.6 % (32.0-36.0); MCV 89 fL (80-95); MPV 10.5 fL (8.0-11.0); Platelet Count 298 10^3/uL (130-400); RBC 5.16 10^6/uL (4.36-5.78); RDW 13.7 % (11.8-14.1); RDW-SD 44.9 fL; WBC 6.74 10^3/uL (4.4-10.8)
--- OUTSIDE RECORDS SUMMARY | 2024-03-26 16:31 | XMS_ITS | Encounter Summary ---
Author Organization [facility] [place] [address] Care Team Providers Care Harvest Field Ticketer Name Role Phone Terrance Alves MD Primary Care Provider [phone] Encounter Details Date Type Department Care Team (Late st Contact Info) Description 07/31/2023 [place] [address] Jayda Beckham MD [facility] [address] [facility] [facility] [address] Social History Tobacco Use Types Packs/Day Years Used Date Smoking Tobacco: Former Cigarettes Q uit: 2001 Smokeless Tobacco: Never Sex and Gender Information Value Date Recorded Sex Assigned at Not on file Gender Identity Not on file Sexual Orientation Not on file documented as of this encounter Progress Notes * Tanja Jackson RN - 07/31/2023 8:33 AM EST Allergy Shot Dose Adjustment Request Date of last dose: 06/08/23 Volume and concentration of last dose received: Mixed Vespid 300 mcg/mL, 1 mL Wasp 100 mcg/mL, 1 mL Honey Bee 100 mcg/mL, 1 mL Patient is on: [X] Maintenance (please indicate when patient reached maintenance) 08/08/22 Reason for dose adjustment: [X] Gap in therapy (indicate weeks and days since last injection): 7 weeks + 6 days Instructions: Reduce dose to mL of vial. After dose adjustment, build again per protocol unless stated otherwise below: * Jayda Beckham MD - 07/31/2023 8:33 AM EST Go back to 0.8mL of each vial, then return in 1 week for full maintenance dose. Jayda Beckham MD 07/31/2023 8:44 AM documented in this encounter Plan of Treatment Not on file documented as of this encounter Visit Diagnoses Not on filedocumented in this encounter Care Teams Harvest Field Ticketer Relationship Specialty Start Date End Date Terrance Alves MD [address] [place] [address] PCP - General Internal Medicine 01/12/18 documented as of this encounter
--- OUTSIDE RECORDS SUMMARY | 2024-03-26 16:31 | XMS_ITS | Encounter Summary ---
[place] [address] Care Team Providers Care Metallographer Name Role Phone Terrance Alves MD Primary Care Provider [phone] Encounter Details Date Type Department Care Team (Latest Contact Info) Description 11/30/2023 Travel Social History Tobacco Use Types Packs/Day Years Used Date Smoking Tobacco: Former Cigarettes Q uit: 2001 Smokeless Tobacco: Never Sex and Gender Information Value Date Recorded Sex Assigned at Not on file Gender Identity Not on file Sexual Orientation Not on file documented as of this encounter Plan of Treatment Not on file documented as of this encounter Visit Diagnoses Not on filedocumented in this encounter Care Teams Metallographer Relationship Specialty Start Date End Date Terrance Alves MD [address] [place] [address] PCP - General Internal Medicine 01/12/18 documented as of this encounter
--- OUTSIDE RECORDS SUMMARY | 2024-03-26 16:31 | XMS_ITS | Encounter Summary ---
[place] [address] Care Team Providers Care Manager Video Name Role Phone Terrance Alves MD Primary Care Provider [phone] Encounter Details Date Type Department Care Team (Latest Contact Info) Description 04/14/2023 Travel Social History Tobacco Use Types Packs/Day [...] on filedocumented in this encounter Care Teams Manager Video Relationship Specialty Start Date End Date Terrance Alves MD [address] [place] [address] PCP - General Internal Medicine 01/12/18 documented as of this encounter
--- OUTSIDE RECORDS SUMMARY | 2024-03-26 16:31 | XMS_ITS | Encounter Summary ---
Author Organization [facility] [place] [address] Care Team Providers Care Pinsetter Mechanic Helper Name Role Phone Terrance Alves MD Primary Care Provider [phone] Encounter Details Date Type Department Care Team (Late st Contact Info) Description 06/08/2023 [place] [address] Tammy Carver MD [facility] [place] [address] Toxic effect of venom of bees, unintentional, initial encounter Social History Tobacco Use Types Packs/Day Years Used Date Smoking Tobacco: Former Cigarettes Q uit: 2001 Smokeless Tobacco: Never Sex and Gender Information Value Date Recorded Sex Assigned at Not on file Gender Identity Not on file Sexual Orientation Not on file documented as of this encounter Plan of Treatment Not on file documented as of this encounter Visit Diagnoses Diagnosis Toxic effect of venom of bees, unintentional, initial encounter documented in this encounter Care Teams Pinsetter Mechanic Helper Relationship Specialty Start Date End Date Terrance Alves MD [address] [place] [address] PCP - General Internal Medicine 01/12/18 documented as of this encounter
--- OUTSIDE RECORDS SUMMARY | 2024-03-26 16:31 | XMS_ITS | Clinical Summary ---
Author Organization [facility] Address [facility] [place] [address] Care Team Providers Care Manager Knowledge Name Role Phone Terrance Alves MD Primary Care Provider [phone] Allergies Active Allergy Reactions Criticality Noted Date Comments Hymenoptera Allergenic Extract 01/04 Pt reported wasps Medications Medication Sig Dispensed Refills Start Date End Date Status metoprolol succinate XL (Toprol-XL) 25 mg Tablet Sustained Release 24 hrIndications:VT (ventricular tachycardia) Take 1 tablet by mouth daily. 30 tablet 12 07/22/2022 Active EPINEPHrine 0.3 mg/0.3 mL Auto-InjectorIndicati ons:Toxic effect of venom of bees, unintentional, initial encounter Inject 0.3 mLs into the muscle as needed. 1 kit 1 06/08/2023 Active Active Problems Problem Noted Date Diagnosed Date Fainting 01/29/2018 Assessment & Plan (01/29/2018 9:44 AM EDT): Baldo suffered a syncopal event in the context of multiple hornet/wasp stings at the end of December 2017. It is not clear that he has any underlying contributing cardiac issues that precipitated his fainting. His EKG today shows normal sinus rhythm with an incomplete RBBB. He has an echocardiogram scheduled locally tomorrow, for which I would like to review the findings to ensure that he does not have any structural heart abnormalities. Given his vague chest discomfort he reported experiencing in his car in the past months, I will also order a standard Neo treadmill stress test with myocardial perfusion imaging. Presuming these studies are unrevealing, he may resume his usual activity and follow-up through his primary care practice. Family History Medical History Relation Comments Myocardial Infarction Paternal Grandfather Relation Status Comments Father Alive Mother Alive Paternal Grandfather Social History Tobacco Use Types Packs/Day Years Used Date Smoking Tobacco: Former Cigarettes Q uit: 2001 Smokeless Tobacco: Never Sex and Gender Information Value Date Recorded Sex Assigned at Not on file Gender Identity Not on file Sexual Orientation Not on file Last Filed Vital Signs Vital Sign Reading Time Taken Comments Blood Pressure 122/74 06/27/2023 12:49 PM EST Pulse 88 06/27/2023 12:49 PM EST Temperature - - Respiratory Rate - - Oxygen Saturation 97% 06/27/2023 12:49 PM EST Inhaled Oxygen Concentration - - Weight 108.6 kg (239 lb 8 oz) 06/27/2023 12:49 P M EST Height 177.8 cm (5' 10) 02/09/2023 3:54 PM EDT Body Mass Index 34.36 02/09/2023 3:54 PM EDT Plan of Treatment Health Maintenance Due Date Last Done Comments HIV screen 1998 Hepatitis C Screening 1998 Lipid Screening 1998 Hepatitis B vaccine (0-59 yrs) (1) 1999 Tetanus/Diphtheria/Pertussis Vaccines (1 - Tdap) 05/28 Diabetes Screening (HgbA1C or Glucose) 2020 Covid-19 Vaccine (1 - season) 2024 Influenza (Flu) vaccine (1 o f 1 - Influenza standard series) 02/11/2024 Care Teams Manager Knowledge Relationship Specialty Start Date End Date Terrance Alvse MD [address] [place] [address] PCP - General Internal Medicine 01/12/18
--- OUTSIDE RECORDS SUMMARY | 2024-03-26 16:31 | XMS_ITS | Encounter Summary ---
[place] [address] Care Team Providers Care Kitchen Manager Name Role Phone Terrance Alves MD Primary Care Provider [phone] Encounter Details Date Type Department Care Team (Latest Contact Info) Description 05/08/2023 Travel Social History Tobacco Use Types Packs/Day [...] on filedocumented in this encounter Care Teams Kitchen Manager Relationship Specialty Start Date End Date Terrance Alves MD [address] [place] [address] PCP - General Internal Medicine 01/12/18 documented as of this encounter
--- OUTSIDE RECORDS SUMMARY | 2024-03-26 16:31 | XMS_ITS | Encounter Summary ---
[place] [address] Care Team Providers Care Master Electrician Name Role Phone Terrance Alves MD Primary Care Provider [phone] Encounter Details Date Type Department Care Team (Latest Contact Info) Description 05/15/2023 Travel Social History Tobacco Use Types Packs/Day [...] on filedocumented in this encounter Care Teams Master Electrician Relationship Specialty Start Date End Date Terrance Alves MD [address] [place] [address] PCP - General Internal Medicine 01/12/18 documented as of this encounter
--- OUTSIDE RECORDS SUMMARY | 2024-03-26 16:31 | XMS_ITS | Encounter Summary ---
Author Organization [facility] [place] [address] Care Team Providers Care Combine Driver Name Role Phone Terrance Alves MD Primary Care Provider [phone] Reason for Visit * Consultation (Routine) - Closed Specialty Diagnoses / Procedures Referred By Contmaria a t Referred To Contact Genetics Diagnoses Ventricular tachycardia Damion Wall MD [facility] [place] [address] [facility] [address] [place] [phone] Referral ID Status Reason Start Date Expiration Date V isits Requested Visits Authorized [id number] Closed Consult, Test & Treat 02/15/2023 02/15/2024 1 1 Encounter Details Date Type Department Care Team (Latest Contact Info) Description 04/25/2023 9:00 AM EST TH Visit (TeleHealth) Medical Genetics at [address] [id number] [facility] 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 Cardiology has raised concern for possible ARVC. Due to this historya genetic consultation was recommended to review the genetic testing options. A three generation pedigree was obtained at the visit today. The family history was significant forhis paternal grandfather with SCA at age 56. His mother has an arrhythmia and his maternal grandmother from renal failure and CHF. Arrhythmogenic right ventricular cardiomyopathy/dysplasia (ARVC/D) is a heart disease primarily affecting the right ventricle. It is characterized by myocardial atrophy, fibrofatty replacement of theventricular myocardium, and inflammatory infiltrates. ARVC is highly variable and some affected individuals have no symptoms at all. However, affected individuals are at risk to develop symptoms especially during strenuous exercise. Symptoms can include a sensation of fluttering or pounding in the chest (palpitations), light-headedness, fainting (syncope), shortness of breath and abnormal swelling in the legs or abdomen. If the myocardium becomes severely damaged, it can lead to heart failure.With disease progression and frequent left ventricle involvement (32- 88%), heart failure may result. ARVC/D is present in ~20% of young sudden cardiac victims. ARVC/D affects between 1/2,000 and 1/5,000 people worldwide with a higher prevalence in men compared to women and typically presents inthe 2nd-4th decade of life. Arrythmogenic right ventricular cardiomyopathy is thought to be caused by both genetic and non-genetic factors including viruses and possibly extreme exercise. Current studies suggest that approximately 50% of individuals have an underlying genetic cause for their ARVC. Most of the genes that have been discovered to date have an autosomal dominant mode of inheritance. When a person has an autosomal dominant condition, they have a 50% chance of passing on the condition to each of their children.We discussed that occasionally a person can have an abnormal gene for ARVC and not show signs. Thisis called reduced penetrance and it has been reported before in other families with ARVC. It is important for those individuals at risk to get cardiac screening since some of the early signs of ARVC do not lead to any symptoms. I explained the available genetic testing options and addressed any questions or concerns. Since his symptoms are non-specific and there is significant overlap in clinical presentation I would suggest a comprehensive arrhythmia and cardiomyopathy panel that includes the ARVC genes. We also discussed the benefits, risks, costs and limitations of the genetic testing. We also reviewed the possible outcomes of testing including positive results, negative results and variants of uncertain significance. If this testing is negative or identifies a VUS it would not exclude the possibility that Baldo's condition is genetic and family members could still be at increased risk. If positive, this would confirm the diagnosis and family members concerned about their risks would have the option of genetic testing on themselves. We also discussed how genetic testing can impact the ability to obtain insurance. A federal law called the Genetic Information Nondiscrimination Act (ANUSHKA) is designed to protect people from being discriminated against due to their genetic testing results in obtaining health insurance and employment. However, the ANUSHKA protections do not extend to life, local company intermodal truck driver care, ordisability insurance policies. They also do not extend to federal employees, the or if theemployer has less than 15 employees. We reviewed how a positive genetic testing result may cause an individual difficulty obtaining these types of insurance policies, especially if they do not already have them in place. Lastly I explained that the testing may not be covered by insurance and they could be responsible for the cost of testing. We also reviewed the option of self pay and the sponsored testing program. After informed consent Baldo is uncertain if he wants to pursue testing. He demonstrated appropriate understanding of the topics discussed and had no further questions . We agreed he will contact me if he wants to proceed. I encouraged him to contact me with additional questions. This was a 20-minute consultation, of which 20 minutes of the visit were spent in [id number] discussions regarding the clinical diagnosis and care planning. Family agreed with the plans discussed. [facility] MS, [facility] Licensed Senior Genetic Counselor documented in this encounter Plan of Treatment Scheduled Referrals Name Type Priority Associated Diagnoses Orde r Schedule Referral to Genetics Outpatient Referral Routine Ventricular tachycardia Ordered: 02/15/2023 documented as of this encounter Visit Diagnoses Diagnosis Ventricular tachycardia Paroxysmal ventricular tachycardia documented in this encounter Care Teams Combine Driver Relationship Specialty Start Date End Date Terrance Alves MD [address] [place] [address] PCP - General Internal Medicine 01/12/18 documented as of this encounter
--- OUTSIDE RECORDS SUMMARY | 2024-03-26 16:31 | XMS_ITS | Encounter Summary ---
Author Organization Formerly [facility] [place] [address] Care Team Providers Care Painter Structural Steel Name Role Phone Terrance Alves MD Primary Care Provider [phone] Reason for Visit * Reason Comments Allergies Encounter Details Date Type Department Care Team (Latest Contact Info) Description 06/27/2023 1:00 PM EST [place] [address] Jayda Beckham MD [facility] [address] [facility] [facility] [address] Desensitization to allergens; Allergic reaction to insect sting, accidental or unintentional, subsequent encounter; Rash Social History Tobacco Use Types Packs/Day Years Used Date Smoking Tobacco: Former Cigarettes Q uit: 2001 Smokeless Tobacco: Never Sex and Gender Information Value Date Recorded Sex Assigned at Not on file Gender Identity Not on file Sexual Orientation Not on file documented as of this encounter Last Filed Vital Signs Vital Sign Reading Time Taken Comments Blood Pressure 122/74 06/27/2023 12:49 PM EST Pulse 88 06/27/2023 12:49 PM EST Temperature - - Respiratory Rate - - Oxygen Saturation 97% 06/27/2023 12:49 PM EST Inhaled Oxygen Concentration - - Weight 108.6 kg (239 lb 8 oz) 06/27/2023 12:49 P M EST Height - - Body Mass Index 34.36 02/09/2023 3:54 PM EDT documented in this encounter Progress Notes * Jayda Beckham MD - 06/27/2023 1:00 PM EST CC: follow up HPI: Baldo Carty Jr. is a 43 y.o. 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 Last seen 07/11/22. 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 However he has had reactions to hornets when he was stung 3 times around 2018. About 20 to 30 minutes later developed ringing in his ears, diaphoresis, dizziness, loss of consciousness, no rash. He woke up in the ambulance but did not get epinephrine per the patient and there was question of vasovagal reaction. He had positive allergy testing to yellowjacket, yellow hornet, white hornet, wasp. With anothersting he lost consciousness within 15 minutes that he felt his blood pressure dropped, had the urgeto urinate and have a bowel movement, felt his heart was racing and trouble remembering to breathe. He was given epinephrine which did not seem to help and the dizziness was prolonged. No stings overpast year. VIT: On February 04, 2022 he started venom immunotherapy with mixed vespid, wasp, honeybee. Reached maintenance 08/08/22. No problems with VIT over past year. Tachycardia: He reported some episodes of tachycardia but after some time with these episodes occurring at different points it was not, in my opinion, linked to VIT but an independent process. 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 Mentions some recurrent GI sx and rash today; wonders if FA. ASSESSMENT/PLAN: 43 y.o. male with insect sting allergy on VIT with a beta christiano for abnormal heart rhythm. VIT: - cont per protocol -tolerating shots with beta christiano on board which is needed for heart rhythm - s/p about 1 year of maintenance Sting allergy: cont to carry epipen Concern for FA: sx do not sound c/w FA to me, not a clear food pattern or IgE sx like hives, angioedema, anaphylaxis. May benefit from seeing derm for facial rash RTO 1 year prn problems sooner Jayda Beckham MD documented in this encounter Plan of Treatment Not on file documented as of this encounter Procedures Procedure Name Priority Date/Time Associated Diagnosis Comments ALLERGY SCAN 08/10/2023 12:00 AM EST documented in this encounter Results * SCAN DOC: ALLERGY (08/10/2023 12:00 AM EST) Narrative 08/10/2023 12:00 AM EST Ordered by an unspecified provider. Scanning Provider MEDIA MGR SCAN EXT O RDR/RSLT documented in this encounter Visit Diagnoses Diagnosis Desensitization to allergens Need for desensitization to allergens Allergic reaction to insect sting, accidental or unintentional, subsequent encounter Rash Rash and other nonspecific skin eruption documented in this encounter Care Teams Painter Structural Steel Relationship Specialty Start Date End Date Terrance Alves MD [address] [place] [address] PCP - General Internal Medicine 01/12/18 documented as of this encounter
--- OUTSIDE RECORDS SUMMARY | 2024-03-26 16:31 | XMS_ITS | Encounter Summary ---
[place] [address] Care Team Providers Care Agronomy Teacher Name Role Phone Terrance Alves MD Primary Care Provider [phone] Encounter Details Date Type Department Care Team (Latest Contact Info) Description 05/08/2023 11:15 AM EST Clinical [place] [phone] Toxic effect of venom of bees, accidental (unintentional), initial encounter Social History Tobacco Use Types Packs/Day Years Used Date Smoking Tobacco: Former Cigarettes Q uit: 2001 Smokeless Tobacco: Never Sex and Gender Information Value Date Recorded Sex Assigned at Not on file Gender Identity Not on file Sexual Orientation Not on file documented as of this encounter Last Filed Vital Signs Vital Sign Reading Time Taken Comments Blood Pressure 120/72 05/08/2023 11:31 AM EST Pulse 75 05/08/2023 11:31 AM EST Temperature - - Respiratory Rate - - Oxygen Saturation 98% 05/08/2023 11:31 AM EST Inhaled Oxygen Concentration - - Weight - - Height - - Body Mass Index - - documented in this encounter Progress Notes * Zoraida Duran LPN - 05/08/2023 11:15 AM EST Patient: Baldo Carty . 1980 [id number] Documentation of screening pre-immunotherapy questionnaire responses See scanned document of pre-immunotherapy screening questionnaire. To briefly summarize (place an X in the box that corresponds to patient's answers): [x] The patient answered no to all screening questions #1-6. [] The patient answered yes to at least one of the screening questions (document findings below). Answers documented on questionnaire: Documentation of Dose Adjustments: Dose adjustment needed prior to injection: [No] If yes, please fill out the following: Reason for dose adjustment: New dose and/or change in build: Documentation of Injection: Baldo Carty Jr. has come into the Allergy Clinic for immunotherapy injections. Antihistamine taken as directed. Patient has required Epipen available, verified as current and with patient. yes Injections given per Dr. Beckham's orders. Patient Vitals for the past 24 hrs: Pulse BP SpO2 05/08/23 1131 75 120/72 98 % Injections given: Building (STOCK VIALS) Extract: Mixed Vespid Dilution: 300mcg/mL Dose: 1.0mL Site: left upper arm subcutaneous upper Rxn: < palm EXP: 04/14/24 LOT #: [id number] REFRIGERATION SYSTEMS INSTALLER:JasonisterStier Extract: Wasp Dilution 100mcg/mL Dose: 1.0mL Site: right upper arm subcutaneous upper Rxn: < palm EXP: 04/14/24 LOT #: [id number] REFRIGERATION SYSTEMS INSTALLER:JasonisterStier Extract: Honeybee Dilution: 100mcg/mL Dose: 1.0mL Site: right upper arm subcutaneous lower Rxn: < palm EXP: 03/24/24 LOT#: [id number] REFRIGERATION SYSTEMS INSTALLER:HollisterStier Patient was observed here in the waiting area for 30 minutes. No adverse side effects were noted. Patient ambulated from clinic in stable condition. documented in this encounter Plan of Treatment Not on file documented as of this encounter Visit Diagnoses Diagnosis Toxic effect of venom of bees, accidental (unintentional), initial encounter documented in this encounter Care Teams Agronomy Teacher Relationship Specialty Start Date End Date Terrance Alves MD [address] [place] [address] PCP - General Internal Medicine 01/12/18 documented as of this encounter
--- OUTSIDE RECORDS SUMMARY | 2024-03-26 16:31 | XMS_ITS | Encounter Summary ---
[place] [address] Care Team Providers Care Primer Supervisor Name Role Phone Terrance Alves MD Primary Care Provider [phone] Encounter Details Date Type Department Care Team (Latest Contact Info) Description 06/08/2023 Travel Social History Tobacco Use Types Packs/Day [...] on filedocumented in this encounter Care Teams Primer Supervisor Relationship Specialty Start Date End Date Terrance Alves MD [address] [place] [address] PCP - General Internal Medicine 01/12/18 documented as of this encounter
--- OUTSIDE RECORDS SUMMARY | 2024-03-26 16:31 | XMS_ITS | Encounter Summary ---
[facility] [place] [address] Care Team Providers Care Learning Support Services Director Name Role Phone Terrance Alves MD Primary Care Provider [phone] Encounter Details Date Type Department Care Team (Latest Contact Info) Description 04/14/2023 8:45 AM EDT [place] [phone] Toxic effect of venom of bees, accidental [...] Sign Reading Time Taken Comments Blood Pressure 114/62 04/14/2023 8:59 AM EDT Pulse 66 04/14/2023 8:59 AM EDT Temperature - - Respiratory Rate - - Oxygen Saturation 97% 04/14/2023 8:59 AM EDT Inhaled Oxygen Concentration - - Weight - - Height - - Body Mass Index - - documented in this encounter Progress Notes * Zoraida Duran LPN - 04/14/2023 8:45 AM EDT Patient: Baldo Carty Jr. 1980 [id number] Documentation of screening pre-immunotherapy questionnaire responses See [...] the past 24 hrs: Pulse BP SpO2 04/14/23 0859 66 114/62 97 % Injections given: Maintenance (STOCK VIALS) Extract: Mixed Vespid Dilution: 300mcg/mL Dose: 1.0mL Site: right upper arm subcutaneous upper Rxn: < palm EXP: 03/24/24 LOT #: [id number] DESULFURIZER HAND:HollisterStier Extract: Wasp Dilution 100mcg/mL Dose: 1.0mL Site: left upper arm subcutaneous upper Rxn: < palm EXP: 03/24/24 LOT #: [id number] DESULFURIZER HAND:HollisterStier Extract: Honeybee Dilution: 100mcg/mL Dose: 1.0mL Site: left upper arm subcutaneous lower Rxn: < palm EXP: 03/24/24 LOT#: [id number] DESULFURIZER HAND:HollisterStier Patient was observed here in the waiting area for 30 minutes. No adverse side effects were noted. Patient ambulated from clinic in stable condition. documented in this encounter Plan of Treatment Not on file documented as of this encounter Visit Diagnoses Diagnosis Toxic effect of venom of bees, accidental (unintentional), initial encounter documented in this encounter Care Teams Learning Support Services Director Relationship Specialty Start Date End Date Terrance Alves MD [address] [place] [address] PCP - General Internal Medicine 01/12/18 documented as of this encounter
--- OUTSIDE RECORDS SUMMARY | 2024-03-26 16:31 | XMS_ITS | Encounter Summary ---
[place] [address] Care Team Providers Care Prekindergarten Teacher Name Role Phone Terrance Alves MD Primary Care Provider [phone] Encounter Details Date Type Department Care Team (Latest Contact Info) Description 06/08/2023 3:00 PM EST [place] [phone] Toxic effect of venom of bees, accidental [...] Sign Reading Time Taken Comments Blood Pressure 120/78 06/08/2023 3:47 PM EST Pulse 66 06/08/2023 3:47 PM EST Temperature - - Respiratory Rate - - Oxygen Saturation 97% 06/08/2023 3:47 PM EST Inhaled Oxygen Concentration - - Weight - - Height - - Body Mass Index - - documented in this encounter Progress Notes * Tanja Jackson RN - 06/08/2023 3:00 PM EST Patient: Baldo Carty Jr. 1980 [id number] Documentation of screening pre-immunotherapy questionnaire responses See scanned document of pre-immunotherapy screening questionnaire. To briefly summarize (place an X in the box that corresponds to patient's answers): [X] The patient answered no to all screening questions #1-6. [] The patient answered yes to at least one of the screening questions (document findings below). Answers documented on questionnaire: Documentation of Dose Adjustments: Dose adjustment needed prior to injection: [no] If yes, please fill out the following: Reason for dose adjustment: New dose and/or change in build: Documentation of Injection: Baldo Carty Jr. has come into the Allergy Clinic for immunotherapy injections. Antihistamine taken as directed. Patient has required Epipen available, verified as current and with patient. Yes Injections given per Dr. Beckham's orders. No data found. Injections given: Maintenance (STOCK VIALS) Extract: Mixed Vespid Dilution: 300mcg/mL Dose: 1.0mL Site: right upper arm subcutaneous upper Rxn: < palm EXP: 04/14/24 LOT #: [id number] SURGERY TEACHER:HollisterStier Extract: Wasp Dilution 100mcg/mL Dose: 1.0mL Site: left upper arm subcutaneous upper Rxn: < palm EXP: 05/12/24 LOT #: [id number] SURGERY TEACHER:HollisterStier Extract: Honeybee Dilution: 100mcg/mL Dose: 1.0mL Site: left upper arm subcutaneous lower Rxn: < palm EXP: 05/12/24 LOT#: [id number] SURGERY TEACHER:HollisterStier Patient was observed here in the waiting area for 30 minutes. No adverse side effects were noted. Patient ambulated from clinic in stable condition. documented in this encounter Plan of Treatment Not on file documented as of this encounter Visit Diagnoses Diagnosis Toxic effect of venom of bees, accidental (unintentional), initial encounter documented in this encounter Care Teams Prekindergarten Teacher Relationship Specialty Start Date End Date Terrance Alves MD [address] [place] [address] PCP - General Internal Medicine 01/12/18 documented as of this encounter
--- OUTSIDE RECORDS SUMMARY | 2024-03-26 16:31 | XMS_ITS | Encounter Summary ---
[place] [address] Care Team Providers Care Machine Buffer Name Role Phone Terrance Alves MD Primary Care Provider Reason for Referral * Diagnostic Test (Routine) - Closed Specialty Diagnoses / Procedures Referred By Contac t Referred To Contact Cardiology Diagnoses Ventricular tachycardia Procedures Echocardiogram Transthoracic Aris Cowan MD [facility] [place] [address] [facility] [place] [address] Referral ID Status Reason Start Date Expiration Date V isits Requested Visits Authorized [id number] Closed Specialty Service Requested 02/09/2023 02/09/2024 1 1 Reason for Visit * Diagnostic Test (Routine) - Closed Specialty Diagnoses / Procedures Referred By Contac t Referred To Contact Cardiology Diagnoses Ventricular tachycardia Procedures Echocardiogram Transthoracic Aris Cowan MD [facility] [address] [facility] [place] [address] Referral ID Status Reason Start Date Expiration Date V isits Requested Visits Authorized [id number] Closed Specialty Service Requested 02/09/2023 02/09/2024 1 1 Encounter Details Date Type Department Care Team (Latest Contact Info) Description 05/15/2023 8:53 AM EST - 05/15/2023 11:59 PM EST Hospital Encounter Non-Invasive Cardiology Lab [facility] [place] [address] Damion Wall MD [facility] [place] [address] Ventricular tachycardia Discharge Disposition: Home Social History Tobacco Use Types Packs/Day Years Used Date Smoking Tobacco: Former Cigarettes Q uit: 2001 Smokeless Tobacco: Never Sex and Gender Information Value Date Recorded Sex Assigned at Not on file Gender Identity Not on file Sexual Orientation Not on file documented as of this encounter Medications at Time of Discharge Medication Sig Dispensed Refills Start Date End Date metoprolol succinate XL (Toprol-XL) 25 mg Tablet Sustained Release 24 hrIndications:VT (ventricular tachycardia) Take 1 tablet by mouth daily. 30 tablet 12 07/22/2022 EPINEPHrine 0.3 mg/0.3 mL Auto-InjectorIndications :Toxic effect of venom of bees, unintentional, initial encounter Inject 0.3 mLs into the muscle as needed. 1 kit 1 01/25/2023 06/08/2023 documented as of this encounter Progress Notes * Aris Cowan MD - 05/15/2023 11:59 PM EST Hi Mr. Vivar, your heart ultrasound (echocardiogram) showed no significant abnormalities. Please let me know if you have questions about this. Best, TYRE RETREADER documented in this encounter Plan of Treatment Not on file documented as of this encounter Procedures Procedure Name Priority Date/Time Associated Diagnosis Comments ECHO COMPLETE Routine 05/15/2023 9:36 AM EST Ventricular tachycardia documented in this encounter Results * ECHO COMPLETE (05/15/2023 9:36 AM EST) EF 65 HEARTLAB SYSTEM Anatomical Region Laterality Modality Cardiac Other 05/15/2023 9:07 AM EST Narrative 05/15/2023 9:58 AM EST 1 [place] [address] ? Echocardiogram Report Name: BALDO VIVAR JR ?Study Date: 05/15/2023 09:07 AMBP: 131/90 mmHg ? Patient Location: 4A : 1980 ? Height: 178 cm ? Account: [id number] Age: 42 yrs ? Weight: 102 kg Gender: Male ?BSA: 2.2 m2 Ordering Physician: DAMION WALL Referring Physician: ARIS COWAN Performed By: Jose Manuel Nix RDCS Reason For Study: Ventricular tachycardia Exam Location: [facility]. Interpretation Summary Left ventricle is of normal size. Wall thickness is normal. Left ventricular systolic function is normal. The left ventricular ejection fraction is 65% by Chavez's biplane. There are no segmental wall motion abnormalities. No significnat valvular abnormalities. Other details as noted below. As compared to the prior echo (08/09/2022, resting portion of the stress echo), there is no significant change. Procedure Complete-07059. Left ventricular strain. Satisfactory quality. There is normal sinus rhythm. Left Ventricle Left ventricle is of normal size. Wall thickness is normal. There is no left ventricular outflow tract obstruction. There is no ventricular septal defect. Left ventricular systolic function is normal. The left ventricular ejection fraction is 65% by Chavez's biplane. Global longitudinal strain is measured at -17.7 %. (GE). There are no segmental wall motion abnormalities. Right Ventricle The right ventricle is of normal size. Right ventricular systolic function is normal. Left Atrium The left atrium is normal. There is no evidence for a patent foramen ovale. Right Atrium The right atrium is normal. Aortic Valve The aortic valve is tricuspid. There is no aortic stenosis. There is no aortic regurgitation. Mitral Valve The mitral valve is structurally normal. There is no mitral stenosis. There is trace mitral regurgitation. Tricuspid Valve The tricuspid valve is structurally normal. There is no tricuspid stenosis. There is trace tricuspid regurgitation. Pulmonic Valve The pulmonic valve appears to be structurally normal. There is no valvular pulmonic stenosis. There is no pulmonic valve regurgitation. Great Arteries The diameter at the level of the sinuses of Valsalva is 3.5 cm. The maximum diameter of the proximal ascending aorta is 2.9 cm. Venous Inferior vena cava is normal in size. Inferior vena cava collapse greater than 50% with respiration. Pericardium/Pleural The pericardium appears normal. Hemodynamics Pulmonary artery hypertension could not be assessed due to inadequate tricuspid regurgitation jet. The estimated right atrial pressure is 3mmHg. Left ventricular diastolic function is normal. Left ventricular filling pressure is normal. Ejection Fraction ?2D Measurements ? Volumes EF(MOD-bp): 65.2 % ?IVSd: 0.97 cm ?LAV(MOD- bp) Indexed: ?LVIDd: 5.6 cm ?LVIDs: 3.7 cm ?24.6 ml/m2 ?LVPWd: 0.96 cm ? RA A4Cs_phl: 16.7 cm2 ? EDV(MOD-bp) Indexed: ?LV mass(C)d: 207.8 grams ?LV mass(C)dI: 94.6 grams/m2 ?62.6 ml/m2 ?Ao root diam: 3.5 cm ? ESV(MOD-bp) Indexed: ?Ao root diam index: 1.6 ?21.8 ml/m2 ?asc Aorta Diam: 2.9 cm ?TAPSE_phl: 2.1 cm Doppler MV E max franco: 84.7 cm/sec MV A max franco: 49.2 cm/sec MV E/A: 1.7 MV dec time: 0.20 sec Lat Peak E' Franco: 17.6 cm/sec E/ e' (lat): 4.8 Med Peak E' Franco: 8.6 cm/sec E/e' (med): 9.8 E/e' Average: 7.3 I ?WMSI = 1.00 ? % Normal = 100 ?Segments ??Size X - Cannot ?2 - ?4 - ?1-2 ? small Interpret ?1 - Normal ?? Hypokinetic 3 - Akinetic Dyskinetic ?? 3-5 ? moderate 5 - ? 6-14 ?large Aneurysmal ?15-16 ?? diffuse Procedure Note Amarjit Moon MD - 05/15/2023 1 [place] [id number] Echocardiogram Report Name: BALDO VIVAR JR Study Date: 309:07 AMBP: 131/90 mmHg Patient Location: : 1980 Height: 178 cm Account: [id number] Age: 42 yrs Weight: 102 kg Gender: Male BSA: 2.2 m2 Ordering Physician: DAMION WALL Referring Physician: ARIS COWAN Performed By: Jose Manuel Nix RDCS Reason For Study: Ventricular tachycardia Exam Location: [facility]. Interpretation Summary Left ventricle is of normal size. Wall thickness is normal. Leftventricular systolic function is normal. The left ventricular ejection fraction is 65%by Chavez's biplane. There are no segmental wall motion abnormalities. No significnat valvular abnormalities. Other details as noted below. As compared to the prior echo (08/09/2022, resting portion of the stressecho), there is no significant change. Procedure Complete-75016. Left ventricular strain. Satisfactory quality. There isnormal sinus rhythm. Left Ventricle Left ventricle is of normal size. Wall thickness is normal. There is noleft ventricular outflow tract obstruction. There is no ventricular septaldefect. Left ventricular systolic function is normal. The left ventricular ejectionfraction is 65% by Chavez's biplane. Global longitudinal strain is measured at -17.7%. (GE). There are no segmental wall motion abnormalities. Right Ventricle The right ventricle is of normal size. Right ventricular systolic functionis normal. Left Atrium The left atrium is normal. There is no evidence for a patent foramenovale. Right Atrium The right atrium is normal. Aortic Valve The aortic valve is tricuspid. There is no aortic stenosis. There is noaortic regurgitation. Mitral Valve The mitral valve is structurally normal. There is no mitral stenosis.There is trace mitral regurgitation. Tricuspid Valve The tricuspid valve is structurally normal. There is no tricuspidstenosis. There is trace tricuspid regurgitation. Pulmonic Valve The pulmonic valve appears to be structurally normal. There is novalvular pulmonic stenosis. There is no pulmonic valve regurgitation. Great Arteries The diameter at the level of the sinuses of Valsalva is 3.5 cm. Themaximum diameter of the proximal ascending aorta is 2.9 cm. Venous Inferior vena cava is normal in size. Inferior vena cava collapse greaterthan 50% with respiration. Pericardium/Pleural The pericardium appears normal. Hemodynamics Pulmonary artery hypertension could not be assessed due to inadequatetricuspid regurgitation jet. The estimated right atrial pressure is 3mmHg. Leftventricular diastolic function is normal. Left ventricular filling pressure isnormal. Ejection Fraction 2D Measurements Volumes EF(MOD-bp): 65.2 % IVSd: 0.97 cm LAV(MOD-bp)Indexed: LVIDd: 5.6 cm LVIDs: 3.7 cm 24.6 ml/m2 LVPWd: 0.96 cm RA A4Cs_phl: 16.7cm2 EDV(MOD-bp)Indexed: LV mass(C)d: 207.8 grams LV mass(C)dI: 94.6 grams/m2 62.6 ml/m2 Ao root diam: 3.5 cm ESV(MOD-bp)Indexed: Ao root diam index: 1.6 21.8 ml/m2 asc Aorta Diam: 2.9 cm TAPSE_phl: 2.1 cm Doppler MV E max franco: 84.7 cm/sec MV A max franco: 49.2 cm/sec MV E/A: 1.7 MV dec time: 0.20 sec Lat Peak E' Franco: 17.6 cm/sec E/ e' (lat): 4.8 Med Peak E' Franco: 8.6 cm/sec E/e' (med): 9.8 E/e' Average: 7.3 I WMSI = 1.00 % Normal = 100 SegmentsSize X - Cannot 2 - 4 - 1-2small Interpret 1 - Normal Hypokinetic 3 - Akinetic Dyskinetic 3-5moderate 5 - 6-14large Aneurysmal 15-16diffuse Damion Wlal MD ECHO ORDERABLES documented in this encounter Visit Diagnoses Diagnosis Ventricular tachycardia Paroxysmal ventricular tachycardia documented in this encounter Care Teams Machine Buffer Relationship Specialty Start Date End Date Terrance Alves MD [address] [place] [address] PCP - General Internal Medicine 01/12/18 documented as of this encounter
--- OUTSIDE RECORDS SUMMARY | 2024-03-26 16:31 | XMS_ITS | Encounter Summary ---
[place] [address] Care Team Providers Care Clay Maker Name Role Phone Terrance Alves MD Primary Care Provider [phone] Encounter Details Date Type Department Care Team (Latest Contact Info) Description 06/27/2023 Travel Social History Tobacco Use Types Packs/Day [...] on filedocumented in this encounter Care Teams Clay Maker Relationship Specialty Start Date End Date Terrance Alves MD [address] [place] [address] PCP - General Internal Medicine 01/12/18 documented as of this encounter
--- OUTSIDE RECORDS SUMMARY | 2024-03-26 16:32 | XMS_ITS | Encounter Summary ---
[place] [address] Care Team Providers Care Industrial Design Engineer Name Role Phone Terrance Alves MD Primary Care Provider [phone] Encounter Details Date Type Department Care Team (Latest Contact Info) Description 06/20/2022 9:30 AM EST [place] [id number] Toxic effect of venom of bees, accidental [...] Sign Reading Time Taken Comments Blood Pressure 124/78 06/20/2022 9:43 AM EST Pulse 91 06/20/2022 9:43 AM EST Temperature - - Respiratory Rate - - Oxygen Saturation 97% 06/20/2022 9:43 AM EST Inhaled Oxygen Concentration - - Weight - - Height - - Body Mass Index - - documented in this encounter Progress Notes * Evie Lloyd, RN - 06/20/2022 9:30 AM EST Patient: Baldo Carty Jr. 1980 [id number] Documentation of screening pre-immunotherapy questionnaire responses See scanned document of pre-immunotherapy screening questionnaire. To briefly summarize (place an X in the box that corresponds to patient's answers): [x] The patient answered no to all screening questions #1-6. [na] The patient answered yes to at least [...] yes Injections given per Dr. Beckham's orders. No data found. Injections given: Building (STOCK VIALS) Extract: Mixed Vespid Dilution: 30mcg/mL Dose: 1.0mL Site: left upper arm subcutaneous upper Rxn: none EXP: 07/08/22 LOT #: [id number] CRYPTOGRAPHIC CLERK:Catatier Extract: Wasp Dilution 10mcg/mL Dose: 1.0mL Site: right upper arm subcutaneous upper Rxn: none EXP: 07/08/22 LOT #: [id number] CRYPTOGRAPHIC CLERK:HollisterStier Extract: Honeybee Dilution: 10mcg/mL Dose: 1.0mL Site: right upper arm subcutaneous lower Rxn: none EXP: 07/08/22 LOT#: [id number] CRYPTOGRAPHIC CLERK:Onformonicstier Patient was observed here in the waiting area for 30 minutes. No adverse side effects were noted. Patient ambulated from clinic in stable condition. documented in this encounter Plan of Treatment Not on file documented as of this encounter Visit Diagnoses Diagnosis Toxic effect of venom of bees, accidental (unintentional), initial encounter documented in this encounter Care Teams Industrial Design Engineer Relationship Specialty Start Date End Date Terrance Alves MD [address] [place] [address] PCP - General Internal Medicine 01/12/18 documented as of this encounter
--- OUTSIDE RECORDS SUMMARY | 2024-03-26 16:32 | XMS_ITS | Encounter Summary ---
[place] [address] Care Team Providers Care Vacuum Repairer Name Role Phone Terrance Alves MD Primary Care Provider [phone] Encounter Details Date Type Department Care Team (Latest Contact Info) Description 11/22/2022 9:15 AM EDT [place] [phone] Toxic effect of venom of bees, unintentional, [...] Sign Reading Time Taken Comments Blood Pressure 118/78 11/22/2022 9:32 AM EDT Pulse 76 11/22/2022 9:32 AM EDT Temperature - - Respiratory Rate - - Oxygen Saturation 99% 11/22/2022 9:32 AM EDT Inhaled Oxygen Concentration - - Weight - - Height - - Body Mass Index - - documented in this encounter Progress Notes * Lucie Perla RN - 11/22/2022 9:15 AM EDT Patient: Baldo Carty Jr. 1980 [id number] Documentation of screening pre-immunotherapy questionnaire responses See scanned document of pre-immunotherapy screening questionnaire. To briefly summarize (place an X in the box that corresponds to patient's answers): [no] The patient answered no to all screening [...] arm subcutaneous upper Rxn: < palm EXP: 11/19/23 LOT #: [id number] DIPLOMA MAKER:HollisterStier Extract: Wasp Dilution 100mcg/mL Dose: 1.0mL Site: right upper arm subcutaneous upper Rxn: none EXP: 11/19/23 LOT #: [id number] DIPLOMA MAKER:HollisterStier Extract: Honeybee Dilution: 100mcg/mL Dose: 1.0mL Site: right upper arm subcutaneous lower Rxn: none EXP: 11/19/23 LOT#: [id number] DIPLOMA MAKER:Tianjin [employer] MaterialsisterStier Patient was observed here in the waiting area for 30 minutes. No adverse side effects were noted. Patient ambulated from clinic in stable condition. documented in this encounter Plan of Treatment Not on file documented as of this encounter Visit Diagnoses Diagnosis Toxic effect of venom of bees, unintentional, initial encounter documented in this encounter Care Teams Vacuum Repairer Relationship Specialty Start Date End Date Terrance Alves MD [address] [place] [id number] PCP - General Internal Medicine 01/12/18 documented as of this encounter
--- OUTSIDE RECORDS SUMMARY | 2024-03-26 16:32 | XMS_ITS | Encounter Summary ---
[place] [address] Care Team Providers Care Patch Worker Name Role Phone Terrance Alves MD Primary Care Provider [phone] Encounter Details Date Type Department Care Team (Latest Contact Info) Description 08/08/2022 Travel Social History Tobacco Use Types Packs/Day [...] on filedocumented in this encounter Care Teams Patch Worker Relationship Specialty Start Date End Date Terrance Alves MD [address] [place] [address] PCP - General Internal Medicine 01/12/18 documented as of this encounter
--- OUTSIDE RECORDS SUMMARY | 2024-03-26 16:32 | XMS_ITS | Encounter Summary ---
[place] [address] Care Team Providers Care 2Nd Pressman Name Role Phone Terrance Alves MD Primary Care Provider [phone] Reason for Referral * Diagnostic Test (Routine) - Closed Specialty Diagnoses / Procedures Referred By Contac t Referred To Contact Radiology Diagnoses VT (ventricular tachycardia) Procedures MRI Cardiac Morphology Function wwo Contrast Sandra Gomez MD [facility] [place] [address] [place] [address] Referral ID Status Reason Start Date Expiration Date V isits Requested Visits Authorized [id number] Closed Specialty Service Requested 07/22/2022 01/20/2024 1 1 Reason for Visit * Diagnostic Test (Routine) - Closed Specialty Diagnoses / Procedures Referred By Contac t Referred To Contact Radiology Diagnoses VT (ventricular tachycardia) Procedures MRI Cardiac Morphology Function wwo Contrast Sandra Gomez MD [facility] [place] [address] [place] [address] Referral ID Status Reason Start Date Expiration Date V isits Requested Visits Authorized [id number] Closed Specialty Service Requested 07/22/2022 01/20/2024 1 1 Encounter Details Date Type Department Care Team (Latest Contact Info) Description 09/12/2022 9:56 AM EDT - 09/12/2022 11:59 PM EDT Hospital Encounter MRI at [facility] [place] [address] Sandra Gomez MD [facility] [place] [address] [place] (ventricular tachycardia) Discharge Disposition: Home Social History Tobacco Use [...] tablet 12 07/22/2022 EPINEPHrine 0.3 mg/0.3 mL Auto-Injector Inject 0.3 mLs into the muscle as needed. 1 each 03/14/2022 01/24/2023 methylphenidate (RITALIN) 20 mg Tablet Take 20 mg by mouth 2 times daily as needed. 12/21/2021 10/07/2022 documented as of this encounter Plan of Treatment Not on file documented as of this encounter Procedures Procedure Name Priority Date/Time Associated Diagnosis Comments MRI CARDIAC MORPHOLOGY FUNCTION WWO CONTRAST Routine 09/12/2022 11:01 AM EDT VT (ventricular tachycardia) documented in this encounter Results * MRI Cardiac Morphology Function wwo Contrast (09/12/2022 11:01 AM EDT) Anatomical Region Laterality Modality Magnetic Resonan ce Impressions 09/12/2022 4:14 PM EDT 1. ??Normal left ventricular size and systolic function. 2. ??Mildly dilated RV with mildly reduced function. 3. ??No evidence of late gadolinium enhancement to suggest prior infarct, myocarditis, or infiltrative disease. I have personally reviewed the image(s) and the resident's interpretation and agree with the findings, Jagdeep Florence MD at 09/12/2022 4:14 PM Thank you for letting us participate in the care of this patient. ??If you are a health care provider and have any questions regarding this report, please contact the number below. ??For patients who have questions please contact the health student career development specialist that requested your imaging first. ? Narrative 09/12/2022 4:14 PM EDT EXAMINATION: MRI CARDIAC MORPHOLOGY FUNCTION WWO CONTRAST CLINICAL HISTORY: Ventricular tachycardia (VT), sustained Patient otherwise healthy with sustained monomorphic ventricular tachycardia, assess for underlying myocardial disease. COMPARISON: None TECHNIQUE: Cardiac MRI with and without IV contrast IV CONTRAST: 44 ml Dotarem Quantification: ?? LEFT VENTRICLE: Left ventricular end-diastolic volume: 234 ml Left ventricular end-systolic volume: 98 ml Stroke volume: 136 ml Ejection fraction: 58% Left ventricular end-diastolic volume-index: 102 ml/m2 Left ventricular end-diastolic width: 5.5 cm Left ventricular septal diameter: 1.1 cm Left ventricular inferior wall diameter: 0.8 cm RIGHT VENTRICLE: Right ventricular end-diastolic volume 261 ml Right ventricular end-systolic volume 148 ml Stroke volume 113 ml Ejection fraction: 43% Right ventricular end-diastolic volume index: 115 ml/m2 Chambers: At rest, the left ventricle is normal in size and function. Quantitated left ventricular ejection fraction is 58%. There are no regional wall motion abnormalities present. Wall thickness is normal. The right ventricle is mildly dilated. Quantitated right ventricular ejection fraction is mildly reduced at 43%. There are no right ventricular regional wall motion abnormalities present. The left atrium is normal in size. The right atrium is normal in size. Interventricular and interatrial septum are intact. The aortic root is normal in size. Valves: Mitral valve: Normal in structure and function with trace regurgitation and no stenosis present. Aortic valve: Trileaflet. Normal in structure and function with no regurgitation. There is no aortic valve stenosis present. Tricuspid valve: Normal in structure and function with trace tricuspid regurgitation and no stenosis present. Pulmonic valve: Not well seen on today's study. Resting perfusion: Resting perfusion was performed in both long and short axis planes. There were no resting perfusion defects to suggest previous infarct or resting myocardial ischemia. TI Necktie Operator Pockets And Pieces: TI Necktie Operator Pockets And Pieces demonstrates normal nulling patterns. Delayed enhancement: Delayed enhancement was performed in both long and short axis planes. There was no delayed enhancement to suggest previous infarct, myocarditis, or infiltrative disease of the left or right ventricles. Extracardiac: Extracardiac imaging performed for the purposes of cardiac planning only. The aorta is normal in course and caliber. There are no signficant pleural effusions present. Procedure Note Jagdeep Florence MD - 09/12/2022 EXAMINATION: MRI CARDIAC MORPHOLOGY FUNCTION WWO CONTRAST CLINICAL HISTORY: Ventricular tachycardia (VT), sustained Patient otherwise healthy with sustained monomorphic ventriculartachycardia, assess for underlying myocardial disease. COMPARISON: None TECHNIQUE: Cardiac MRI with and without IV contrast IV CONTRAST: 44 ml Dotarem Quantification: LEFT VENTRICLE: Left ventricular end-diastolic volume: 234 ml Left ventricular end-systolic volume: 98 ml Stroke volume: 136 ml Ejection fraction: 58% Left ventricular end-diastolic volume-index: 102 ml/m2 Left ventricular end-diastolic width: 5.5 cm Left ventricular septal diameter: 1.1 cm Left ventricular inferior wall diameter: 0.8 cm RIGHT VENTRICLE: Right ventricular end-diastolic volume 261 ml Right ventricular end-systolic volume 148 ml Stroke volume 113 ml Ejection fraction: 43% Right ventricular end-diastolic volume index: 115 ml/m2 Chambers: At rest, the left ventricle is normal in size and function. Quantitatedleft ventricular ejection fraction is 58%. There are no regional wall motion abnormalities present. Wall thickness is normal. The right ventricle ismildly dilated. Quantitated right ventricular ejection fraction is mildly reducedat 43%. There are no right ventricular regional wall motion abnormalitiespresent. The left atrium is normal in size. The right atrium is normal in size. Interventricular and interatrial septum are intact. The aortic root isnormal in size. Valves: Mitral valve: Normal in structure and function with trace regurgitationand no stenosis present. Aortic valve: Trileaflet. Normal in structure and function with no regurgitation. There is no aortic valve stenosis present. Tricuspid valve: Normal in structure and function with trace tricuspid regurgitation and no stenosis present. Pulmonic valve: Not well seen on today's study. Resting perfusion: Resting perfusion was performed in both long and short axis planes. Therewere no resting perfusion defects to suggest previous infarct or restingmyocardial ischemia. TI Necktie Operator Pockets And Pieces: TI Necktie Operator Pockets And Pieces demonstrates normal nulling patterns. Delayed enhancement: Delayed enhancement was performed in both long and short axis planes.There was no delayed enhancement to suggest previous infarct, myocarditis, orinfiltrative disease of the left or right ventricles. Extracardiac: Extracardiac imaging performed for the purposes of cardiac planning only.The aorta is normal in course and caliber. There are no signficant pleuraleffusions present. IMPRESSION 1. Normal left ventricular size and systolic function. 2. Mildly dilated RV with mildly reduced function. 3. No evidence of late gadolinium enhancement to suggest prior infarct, myocarditis, or infiltrative disease. I have personally reviewed the image(s) and the resident's interpretationand agree with the findings, Jagdeep Florence MD at 09/12/2022 4:14 PM Thank you for letting us participate in the care of this patient. If youare a health care provider and have any questions regarding this report,please contact the number below. For patients who have questions please contactthe health student career development specialist that requested your imaging first. Sandra Gomez MD [facility] [place] documented in this encounter Visit Diagnoses Diagnosis VT (ventricular tachycardia) Paroxysmal ventricular tachycardia documented in this encounter Administered Medications Inactive Administered Medications - up to 3 most recent administrations Medication Order MAR Action Action Date Dose Rate Site gadoterate meglumine (Dotarem) (0.5 mMol/mL) injection solution 0-100 mL 0-100 mL, Intravenous, ONCE PRN, 1 dose, Starting on Mon09/12/22 at 1101, Until Mon09/12/22 at 1045, Per Protocol, Radiology Contrast, Routine Given 09/12/2022 10:45 AM EDT 44 mLs documented in this encounter Care Teams 2Nd Pressman Relationship Specialty Start Date End Date Terrance Alves MD [address] [place] [address] PCP - General Internal Medicine 01/12/18 documented as of this encounter
--- OUTSIDE RECORDS SUMMARY | 2024-03-26 16:32 | XMS_ITS | Encounter Summary ---
[place] [address] Care Team Providers Care Horse Show Manager Name Role Phone Terrance Alves MD Primary Care Provider [phone] Reason for Referral * Consultation (Routine) - Closed Specialty Diagnoses / Procedures Referred By Hal garsia Referred To Contact Genetics Diagnoses Ventricular tachycardia Alexis Wall MD [facility] [place] [address] [facility] [address] [place] [phone] Referral ID Status Reason Start Date Expiration Date V isits Requested Visits Authorized [id number] Closed Consult, Test & Treat 02/15/2023 02/15/2024 1 1 * Diagnostic Test (Routine) - Closed Specialty Diagnoses / Procedures Referred By Contmaria a t Referred To Contact Cardiology Diagnoses Ventricular tachycardia Procedures Echocardiogram Transthoracic Aris Cowan MD [facility] [place] [address] [facility] [place] [address] Referral ID Status Reason Start Date Expiration Date V isits Requested Visits Authorized [id number] Closed Specialty Service Requested 02/09/2023 02/09/2024 1 1 Reason for Visit * Consultation (Routine) - Closed Specialty Diagnoses / Procedures Referred By Contact Referred To Contact Electrophysiology / Cardiology Diagnoses Sustained VT (ventricular tachycardia) Consideration of EPS/ablation/device? Episode of sustained monomorphic VT, history of syncope with prior negative work up. Exercise stress echo and cMRI overall unremarkable. Sandra Gomez MD [facility] [place] [address] [facility] [address] [place] [phone] Referral ID Status Reason Start Date Expiration Date V isits Requested Visits Authorized [id number] Closed Consult, Test & Treat 09/14/2022 09/14/2023 1 1 Encounter Details Date Type Department Care Team (Late st Contact Info) Description 02/09/2023 4:00 PM EDT Office Visit Cardiology at [address] [phone] Alexis Wall MD [facility] [place] [address] Aris Cowan MD [facility] [place] [address] Ventricular tachycardia Social History Tobacco Use Types Packs/Day Years Used Date Smoking Tobacco: Former Cigarettes Q uit: 2001 Smokeless Tobacco: Never Sex and Gender Information Value Date Recorded Sex Assigned at Not on file Gender Identity Not on file Sexual Orientation Not on file documented as of this encounter Last Filed Vital Signs Vital Sign Reading Time Taken Comments Blood Pressure 127/68 02/09/2023 3:54 PM EDT Pulse 57 02/09/2023 3:54 PM EDT Temperature - - Respiratory Rate - - Oxygen Saturation 98% 02/09/2023 3:54 PM EDT Inhaled Oxygen Concentration - - Weight 101.6 kg (224 lb) 02/09/2023 3:54 PM EDT Height 177.8 cm (5' 10) 02/09/2023 3:54 PM EDT Body Mass Index 32.14 02/09/2023 3:54 PM EDT documented in this encounter Progress Notes * Aris Cowan MD - 02/09/2023 4:00 PM EDT Images from the original note were not included. [facility] [place] [address] ELECTROPHYSIOLOGY FELLOW INITIAL OUTPATIENT VISIT NOTE PRIMARY CARE PROVIDER: Terrance Alves MD REFERRING PROVIDER: Sandra Gomez Subjective: Patient ID: Marlen Vivar Jr. is a 42 y.o. gentleman with known cardiovascular issues as listed below who I am seeing for the first time. The reason for today's visit is to discuss possible ventricular tachycardia noted on wearable device in May 2022 around 10 AM without unusual circumstances. This was associated with overt symptoms, prominent palpitations with presyncope but no syncope. This was his most prolonged episode and has not had another since then. He will occasionally feel a couple of skips that feel similar in character but of a much shorter duration. Prior to that episode, he had had a single 10 second episode that prompted him purchasing and wearing the apple watch. He has had a comprehensive workup includingcardiac MRI and stress echo. The MR did show some RV dilation and dysfunction. The stress test did not provoke VT and did not show ischemia. In terms of residual symptoms since he has been on beta christiano, he describes a sense of pervasive fatigue that waxes and wanes independently from the typicalheart skips that he describes. These have also become very infrequent and were rare on the 30 day heart monitor that he wore earlier this year. Past Medical History: Patient Active Problem List Diagnosis Fainting Family history (cardiac): Family History Problem Relation Age of Onset Myocardial Infarction Paternal Grandfather Social history: reports that he quit smoking about 21 years ago. His smoking use included cigarettes. He has never used smokeless tobacco. He reports that he does not use drugs. Outpatient Medications: Current Outpatient Medications Medication Sig Dispense Refill EPINEPHrine 0.3 mg/0.3 mL Auto-Injector Inject 0.3 mLs into the muscle as needed. 1 kit 1 metoprolol succinate XL (Toprol-XL) 25 mg Tablet Sustained Release 24 hr Take 1 tablet by mouth daily. 30 tablet 12 No current facility-administered medications for this visit. Vitals and Exam: No data found. BP Readings from Last 3 Encounters: 01/26/23 128/72 12/12/22 118/68 11/22/22 118/78 Wt Readings from Last 3 Encounters: 10/07/22 103.4 kg (227 lb 14.4 oz) 07/22/22 105.7 kg (233 lb) 07/22/22 105.7 kg (233 lb) General: Well appearing, well developed adult HEENT: Clear and moist oropharynx, normal conjunctiva and sclerae Venous: Normal jugular venous pulse, no venous insufficiency Arterial: 2+ and symmetric radial and carotid pulses Lungs: Clear lungs throughout Heart: Regular and crisp S1/S2, no murmur or gallop Abdomen: Soft, benign and no hepatomegaly Extremities: No significant edema Skin: No rashes or ulcers Labs: Cardiovascular and Other Pertinent Studies: ECG: Stress Echo July 2022: Good exercise tolerance (130% of predicted average for age and gender). No ventricular ectopy during this test. Normal stress echo, without echocardiographic or electrocardiographic evidence of ischemia at a diagnostic level of stress. Stress Results Protocol: Neo Maximum Predicted HR: 178 bpm Target HR: 151 bpm % Maximum Predicted HR: 99 % Duration Heart Stage (mm:ss) Rate BP Comment (bpm) Rest 58 118/82 Stage 1 3:00 94 136/82 Stage 2 3:00 118 148/84Patient reported fluttering in chest that corresponding with atrial ectopty. Stage 3 3:00 151 174/82 Stage 4 1:30 176 / RecoveryR 6:00 93 124/70 Stress Duration: 10:30 mm:ss Recovery Time: 6:00 mm:ss Maximum Stress HR: 176 bpm METS: 12 Procedure Suboptimal quality. Stress echocardiogram with contrast, with limited spectral and color Doppler. Image enhancement Definity was used for left ventricular opacification. The patient's blood pressure was normal with exercise. Exercise capacity was good. The patient reported no chest pain. The study was terminated because of fatigue. Left Ventricle Left ventricle is of normal size. Wall thickness is normal. Left ventricular size and systolic function is normal. Left ventricular ejection fraction is estimated visually at 55%. There are no segmental wall motion abnormalities. Right Ventricle The right ventricle is probably normal in size. Right ventricular function is probably normal. Aortic Valve The aortic valve is structurally and functionally normal. The aortic valve is tricuspid. There is no aortic stenosis. The aortic leaflet excursion is normal. There is no aortic regurgitation. Mitral Valve The mitral valve is structurally and functionally normal. There is trace mitral regurgitation. Tricuspid Valve The tricuspid valve is structurally and functionally normal. There is trace tricuspid regurgitation. Great Vessels The aortic root is of normal size. No abnormalities are identified. Ascending aorta is normal in size. Effusion The pericardium appears normal. There is no pericardial effusion. Rest ECG/Medications The baseline rhythm demonstrates sinus bradycardia. The patient's oxygen saturation at baseline was 98%. The patient's resting blood pressure was normal at baseline. The patient is on the following cardiac medications:. Beta christiano. Beta christiano was held for 24 hours. Stress ECG There was no new ST segment depression with stress. PAC's with rare. The patient's oxygen saturation during stress was 97%. Stress Echo The left ventricular ejection fraction is hyperdynamic at peak exercise. There was normal augmentation of all left ventricular wall segments post exercise. Recovery No new ST segment changes during recovery. The ECG in recovery demonstrated: normal sinus rhythm. 2D Measurements IVSd: 0.80 cm LVIDd: 5.5 cm LVIDs: 3.4 cm LVPWd: 1.0 cm LV mass(C)d: 185.8 grams LV mass(C)dI: 83.3 grams/m2 Ao root diam: 3.5 cm Ao root diam index: 1.5 asc Aorta Diam: 3.0 cm LVOT diam: 2.2 cm Doppler MV E max franco: 67.3 cm/sec MV A max franco: 48.2 cm/sec MV E/A: 1.4 MV dec time: 0.23 sec Lat Peak E' Franco: 17.2 cm/sec E/ e' (lat): 3.9 Med Peak E' Franco: 11.2 cm/sec E/e' (med): 6.0 E/e' Average: 5.0 Heart Monitor: August 2022: Cath: N/A Assessment and Plan: Marlen Vivar is a 42 y.o. who I am seeing for an isolated episode of what appears to be ventricular tachycardia captured on wearable heart monitor. He has had an excellent diagnostic evaluation to date, but we would like for him to have a signal averaged ECG as well, which has been ordered. This is not urgent and may be coordinated with his other appointments. He has a low symptom burden on beta christiano and thus at this moment we counseled him to adopt a watch and wait approach. Given the abnormal right ventricular findings on MRI, he should be followed clinically and with imaging periodically or with acceleration in symptomatology. Repeat echo in 1 year Signal averaged ECG at next convenient time Follow up by phone on the above and as needed with EP Thank you for the opportunity to participate in this patient's cardiovascular care. Aris Cowan MD 02/09/23 Addendum I personally interviewed and examined the patient, reviewed the available data. Apparent non structural VT, that was captured on a consumer wearable device (and has not been repeated); with work up that has been unremarkable to date. It would be reasonable to have a signal averaged ECG, although the expectation is that this would be largely normal. There were subtle findings reported on his MRI, so it would be reasonable to perform interval evaluation of LV/RV function. Genetic screening would be reasonable - I have placed a request ALEXIS WALL MD documented in this encounter Miscellaneous Notes * Addendum Note - Alexis Wall MD - 02/09/2023 4:00 PM EDTAddended by: ALEXIS WALL on: 02/15/2023 08:40 AM Modules accepted: Orders documented in this encounter Plan of Treatment Scheduled Referrals Name Type Priority Associated Diagnoses Orde r Schedule Referral to Genetics Outpatient Referral Routine Ventricular tachycardia Ordered: 02/15/2023 documented as of this encounter Results * ECHO COMPLETE (05/15/2023 9:36 AM EST) EF 65 HEARTLAB SYSTEM Anatomical Region Laterality Modality Cardiac Other 05/15/2023 9:07 AM EST Narrative 05/15/2023 9:58 AM EST 1 [place] [address] ? Echocardiogram Report Name: CBMARLEN JR ?Study Date: 05/15/2023 09:07 AMBP: 131/90 mmHg ? [facility] 1980 ? Height: 178 cm ? Account: [id number] Age: 42 yrs ? Weight: 102 kg Gender: Male ?BSA: 2.2 m2 Ordering Physician: ALEXIS WALL Referring Physician: ARIS COWAN Performed By: Jose Manuel Nix RDCS Reason For Study: Ventricular tachycardia Exam Location: [facility]. Interpretation Summary Left ventricle is of normal size. Wall thickness is normal. Left ventricular systolic function is normal. The left ventricular ejection fraction is 65% by Chavez's biplane. There are no segmental wall motion abnormalities. No significnat valvular abnormalities. Other details as noted below. As compared to the prior echo (08/09/2022, resting portion of the stress echo), there is no significant change. Procedure Complete-[id number]. Left ventricular strain. Satisfactory quality. There is [...] Note Amarjit Moon MD - 05/15/2023 1 [place] [id number] Echocardiogram Report Name: MARLEN VIVAR JR Study Date: 309:07 AMBP: 131/90 mmHg Patient Location: : 1980 Height: 178 cm Account: [id number] Age: 42 yrs Weight: 102 kg Gender: Male BSA: 2.2 m2 Ordering Physician: ALEXIS WALL Referring Physician: ARIS COWAN Performed By: Jose Manuel Nix RDCS Reason For Study: Ventricular tachycardia Exam Location: [facility]. Interpretation Summary Left ventricle is of normal size. Wall thickness is normal. Leftventricular systolic function is normal. The left ventricular ejection fraction is 65%by Chavez's biplane. There are no segmental wall motion abnormalities. No significnat valvular abnormalities. Other details as noted below. As compared to the prior echo (08/09/2022, resting portion of the stressecho), there is no significant change. Procedure Complete-[id number]. Left ventricular strain. Satisfactory quality. There isnormal [...] Dyskinetic 3-5moderate 5 - 6-14large Aneurysmal 15-16diffuse Alexis Wall MD ECHO ORDERABLES documented in this encounter Visit Diagnoses Diagnosis Ventricular tachycardia Paroxysmal ventricular tachycardia Ventricular tachycardia Paroxysmal ventricular tachycardia documented in this encounter Care Teams Horse Show Manager Relationship Specialty Start Date End Date Terrance Alves MD [address] [place] [address] PCP - General Internal Medicine 01/12/18 documented as of this encounter
--- OUTSIDE RECORDS SUMMARY | 2024-03-26 16:32 | XMS_ITS | Encounter Summary ---
[place] [address] Care Team Providers Care Tile Designer Name Role Phone Terrance Alves MD Primary Care Provider [phone] Encounter Details Date Type Department Care Team (Latest Contact Info) Description 10/19/2022 Travel Social History Tobacco Use Types Packs/Day [...] on filedocumented in this encounter Care Teams Tile Designer Relationship Specialty Start Date End Date Terrance Alves MD [address] [place] [address] PCP - General Internal Medicine 01/12/18 documented as of this encounter
--- OUTSIDE RECORDS SUMMARY | 2024-03-26 16:32 | XMS_ITS | Encounter Summary ---
[facility] [place] [address] Care Team Providers Care Typecasting Machine Operator Name Role Phone Terrance Alves MD Primary Care Provider [phone] Encounter Details Date Type Department Care Team (Latest Contact Info) Description 03/08/2023 11:45 AM EDT Clinical [place] [phone] Toxic effect of venom of bees, accidental [...] Sign Reading Time Taken Comments Blood Pressure 126/72 03/08/2023 11:38 AM EDT Pulse 84 03/08/2023 11:38 AM EDT Temperature - - Respiratory Rate - - Oxygen Saturation 97% 03/08/2023 11:38 AM EDT Inhaled Oxygen Concentration - - Weight - - Height - - Body Mass Index - - documented in this encounter Progress Notes * Zoraida Duran LPN - 03/08/2023 11:45 AM EDT Patient: Baldo Carty . 1980 [id number] Documentation of screening pre-immunotherapy questionnaire responses See [...] the past 24 hrs: Pulse BP SpO2 03/08/23 1138 84 126/72 97 % Injections given: Maintenance (STOCK VIALS) Extract: Mixed Vespid Dilution: 300mcg/mL Dose: 1.0mL Site: right upper arm subcutaneous upper Rxn: < palm EXP: 02/18/24 LOT #: [id number] HAND COUNTER:JasonisterStier Extract: Wasp Dilution 100mcg/mL Dose: 1.0mL Site: left upper arm subcutaneous upper Rxn: < palm EXP: 02/07/24 LOT #: [id number] HAND COUNTER:HollisterStier Extract: Honeybee Dilution: 100mcg/mL Dose: 1.0mL Site: left upper arm subcutaneous lower Rxn: < palm EXP: 02/18/24 LOT#: [id number] HAND COUNTER:HollisterStier Patient was observed here in the waiting area for 30 minutes. No adverse side effects were noted. Patient ambulated from clinic in stable condition. documented in this encounter Plan of Treatment Not on file documented as of this encounter Visit Diagnoses Diagnosis Toxic effect of venom of bees, accidental (unintentional), initial encounter documented in this encounter Care Teams Typecasting Machine Operator Relationship Specialty Start Date End Date Terrance Alves MD [address] [place] [address] PCP - General Internal Medicine 01/12/18 documented as of this encounter
--- OUTSIDE RECORDS SUMMARY | 2024-03-26 16:32 | XMS_ITS | Encounter Summary ---
[place] [address] Care Team Providers Care Screen Printing Machine Operator Helper Name Role Phone Terrance Alves MD Primary Care Provider [phone] Encounter Details Date Type Department Care Team (Latest Contact Info) Description 08/19/2022 9:45 AM EST [place] [phone] Toxic effect of venom of bees, accidental [...] Sign Reading Time Taken Comments Blood Pressure 116/82 08/19/2022 9:25 AM EST Pulse 68 08/19/2022 9:25 AM EST Temperature - - Respiratory Rate - - Oxygen Saturation 100% 08/19/2022 9:25 AM EST Inhaled Oxygen Concentration - - Weight - - Height - - Body Mass Index - - documented in this encounter Progress Notes * Tacos Amaro - 08/19/2022 9:45 AM EST Patient: Baldo Carty . 1980 [id number] Documentation of screening pre-immunotherapy questionnaire responses See [...] in build: Documentation of Injection: Baldo Carty JrElio has come into the Allergy Clinic for immunotherapy injections. Antihistamine taken as directed. Patient has required Epipen available, verified as current and with patient. Injections given per Dr. Beckham's orders. Patient Vitals for the past 24 hrs: Pulse BP SpO2 08/19/22 0925 68 116/82 100 % Injections given: Building (STOCK VIALS) Extract: Mixed Vespid Dilution: 300mcg/mL Dose: 1.0mL Site: left upper arm subcutaneous upper Rxn: < palm EXP: 07/28/2023 LOT #: [id number] DINING SERVICE SUPERVISOR:JasonisterStier Extract: Wasp Dilution 100mcg/mL Dose: 1.0mL Site: right upper arm subcutaneous upper Rxn: < palm EXP: 07/28/2023 LOT #: [id number] DINING SERVICE SUPERVISOR:JasonisterStier Extract: Honeybee Dilution: 100mcg/mL Dose: 1.0mL Site: right upper arm subcutaneous upper Rxn: < palm EXP: 07/28/2023 LOT#: [id number] DINING SERVICE SUPERVISOR:Ninja MetricsisterStier Patient was observed here in the waiting area for 30 minutes. No adverse side effects were noted. Patient ambulated from clinic in stable condition. documented in this encounter Plan of Treatment Not on file documented as of this encounter Visit Diagnoses Diagnosis Toxic effect of venom of bees, accidental (unintentional), initial encounter documented in this encounter Care Teams Screen Printing Machine Operator Helper Relationship Specialty Start Date End Date Terrance Alves MD [address] [place] [address] PCP - General Internal Medicine 01/12/18 documented as of this encounter
--- OUTSIDE RECORDS SUMMARY | 2024-03-26 16:32 | XMS_ITS | Encounter Summary ---
[place] [address] Care Team Providers Care Spray Machine Loader Name Role Phone Terrance Alves MD Primary Care Provider [phone] Reason for Visit * Reason Onset Date Comments Follow-up 12/14/2022 Metoprolol & EP Referral Encounter Details Date Type Department Care Team (Late st Contact Info) Description 12/14/2022 Telephone Cardiology at [address] [phone] Thania Alfaro RN Follow-up (Metoprolol & EP Referral) Social History Tobacco Use Types Packs/Day Years Used Date Smoking Tobacco: Former Cigarettes Q uit: 2001 Smokeless Tobacco: Never Sex and Gender Information Value Date Recorded Sex Assigned at Not on file Gender Identity Not on file Sexual Orientation Not on file documented as of this encounter Miscellaneous Notes * Telephone Encounter - Thania Alfaro RN - 12/14/2022 11:15 AM EDT Call to pt regarding fax from [facility] for Metoprolol Suc 25mg medication compliance. Pt reports that he's been consistently taking it. Also advised that pt's was referred for an EP evaluation. Pt reports he's been waiting for them to call him to schedule. Transferred to EP team [phone] with a warm handoff to schedule this appointment. Pt aware, agrees and verbalizes an understanding. documented in this encounter Plan of Treatment Not on file documented as of this encounter Visit Diagnoses Not on filedocumented in this encounter Care Teams Spray Machine Loader Relationship Specialty Start Date End Date Terrance Alves MD [address] [place] [address] PCP - General Internal Medicine 01/12/18 documented as of this encounter
--- OUTSIDE RECORDS SUMMARY | 2024-03-26 16:32 | XMS_ITS | Encounter Summary ---
[place] [address] Care Team Providers Care Soda Maker Name Role Phone Terrance Alves MD Primary Care Provider [phone] Encounter Details Date Type Department Care Team (Latest Contact Info) Description 01/26/2023 10:00 AM EDT [place] [phone] Toxic effect of venom of bees, accidental [...] Sign Reading Time Taken Comments Blood Pressure 128/72 01/26/2023 9:56 AM EDT Pulse 60 01/26/2023 9:56 AM EDT Temperature - - Respiratory Rate - - Oxygen Saturation 98% 01/26/2023 9:56 AM EDT Inhaled Oxygen Concentration - - Weight - - Height - - Body Mass Index - - documented in this encounter Progress Notes * Sharee Toney RN - 01/26/2023 10:00 AM EDT Patient: Baldo Carty . 1980 [id number] Documentation of screening pre-immunotherapy questionnaire responses See [...] the past 24 hrs: Pulse BP SpO2 01/26/23 0956 60 128/72 98 % Injections given: Maintenance (STOCK VIALS) Extract: Mixed Vespid Dilution: 300mcg/mL Dose: 1.0mL Site: left upper arm subcutaneous upper Rxn: < palm EXP: 01/06/24 LOT #: [id number] MISSILE PAD MECHANIC:JasonisterStier Extract: Wasp Dilution 100mcg/mL Dose: 1.0mL Site: right upper arm subcutaneous upper Rxn: < palm EXP: 01/06/24 LOT #: [id number] MISSILE PAD MECHANIC:JasonisterStier Extract: Honeybee Dilution: 100mcg/mL Dose: 1.0mL Site: right upper arm subcutaneous lower Rxn: < palm EXP: 12/24/23 LOT#: [id number] MISSILE PAD MECHANIC:HollisterStier Patient was observed here in the waiting area for 30 minutes. No adverse side effects were noted. Patient ambulated from clinic in stable condition. documented in this encounter Plan of Treatment Not on file documented as of this encounter Visit Diagnoses Diagnosis Toxic effect of venom of bees, accidental (unintentional), initial encounter documented in this encounter Care Teams Soda Maker Relationship Specialty Start Date End Date Terrance Alves MD [address] [place] [address] PCP - General Internal Medicine 01/12/18 documented as of this encounter
--- OUTSIDE RECORDS SUMMARY | 2024-03-26 16:32 | XMS_ITS | Encounter Summary ---
[place] [address] Care Team Providers Care Roller Engraver Name Role Phone Terrance Alves MD Primary Care Provider [phone] Encounter Details Date Type Department Care Team (Latest Contact Info) Description 03/08/2023 Travel Social History Tobacco Use Types Packs/Day [...] on filedocumented in this encounter Care Teams Roller Engraver Relationship Specialty Start Date End Date Terrance Alves MD [address] [place] [address] PCP - General Internal Medicine 01/12/18 documented as of this encounter
--- OUTSIDE RECORDS SUMMARY | 2024-03-26 16:32 | XMS_ITS | Encounter Summary ---
[place] [address] Care Team Providers Care Immigration Specialist Name Role Phone Terrance Alves MD Primary Care Provider [phone] Encounter Details Date Type Department Care Team (Latest Contact Info) Description 07/04/2022 10:15 AM EST [place] [id number] Toxic effect of venom of bees, accidental [...] Reading Time Taken Comments Blood Pressure 118/78 07/04/2022 10:10 AM EST Pulse 75 07/04/2022 10:10 AM EST Temperature - - Respiratory Rate - - Oxygen Saturation 97% 07/04/2022 10:10 AM EST Inhaled Oxygen Concentration - - Weight - - Height - - Body Mass Index - - documented in this encounter Progress Notes * Sharee Toney RN - 07/04/2022 10:15 AM EST Patient: Baldo Carty Jr. 1980 [id number] Documentation of screening pre-immunotherapy questionnaire responses See [...] VIALS) Extract: Mixed Vespid Dilution: 300mcg/mL Dose: 0.2mL Site: left upper arm subcutaneous upper Rxn: < palm EXP: 05/23/23 LOT #: [id number] CORPORATE DEVELOPMENT OFFICER:HollisterStier Extract: Wasp Dilution 100mcg/mL Dose: 0.2 mL Site: right upper arm subcutaneous upper Rxn: < palm EXP: 06/03/23 LOT #: [id number] CORPORATE DEVELOPMENT OFFICER:HollisterStier Extract: Honeybee Dilution: 100mcg/mL Dose: 0.2 mL Site: right upper arm subcutaneous lower Rxn: < palm EXP: 05/23/23 LOT#: [id number] CORPORATE DEVELOPMENT OFFICER:HollisterStier Patient was observed here in the waiting area for 30 minutes. No adverse side effects were noted. Patient ambulated from clinic in stable condition. documented in this encounter Plan of Treatment Not on file documented as of this encounter Visit Diagnoses Diagnosis Toxic effect of venom of bees, accidental (unintentional), initial encounter documented in this encounter Care Teams Immigration Specialist Relationship Specialty Start Date End Date Terrance Alves MD [address] [place] [address] PCP - General Internal Medicine 01/12/18 documented as of this encounter
--- OUTSIDE RECORDS SUMMARY | 2024-03-26 16:32 | XMS_ITS | Encounter Summary ---
[place] [address] Care Team Providers Care Coal Handling Supervisor Name Role Phone Terrance Alves MD Primary Care Provider Encounter Details Date Type Department Care Team (Latest Contact Info) Description 07/22/2022 Travel Social History Tobacco Use Types Packs/Day [...] on filedocumented in this encounter Care Teams Coal Handling Supervisor Relationship Specialty Start Date End Date Terrance Alves MD [address] [place] [address] PCP - General Internal Medicine 01/12/18 documented as of this encounter
--- OUTSIDE RECORDS SUMMARY | 2024-03-26 16:32 | XMS_ITS | Encounter Summary ---
[place] [address] Care Team Providers Care Technical Support Consultant Name Role Phone Terrance Alves MD Primary Care Provider [phone] Encounter Details Date Type Department Care Team (Latest Contact Info) Description 05/31/2022 Travel Social History Tobacco Use Types Packs/Day [...] on filedocumented in this encounter Care Teams Technical Support Consultant Relationship Specialty Start Date End Date Terrance Alves MD [address] [place] [address] PCP - General Internal Medicine 01/12/18 documented as of this encounter
--- OUTSIDE RECORDS SUMMARY | 2024-03-26 16:32 | XMS_ITS | Encounter Summary ---
[place] [address] Care Team Providers Care Corrosion Technician Name Role Phone Terrance Alves MD Primary Care Provider [phone] Encounter Details Date Type Department Care Team (Latest Contact Info) Description 07/25/2022 Travel Social History Tobacco Use Types Packs/Day [...] on filedocumented in this encounter Care Teams Corrosion Technician Relationship Specialty Start Date End Date Terrance Alves MD [address] [place] [address] PCP - General Internal Medicine 01/12/18 documented as of this encounter
--- OUTSIDE RECORDS SUMMARY | 2024-03-26 16:32 | XMS_ITS | Encounter Summary ---
[place] [address] Care Team Providers Care Gluing Crew Leader Name Role Phone Terrance Alves MD Primary Care Provider [phone] Encounter Details Date Type Department Care Team (Latest Contact Info) Description 07/11/2022 Travel Social History Tobacco Use Types Packs/Day [...] on filedocumented in this encounter Care Teams Gluing Crew Leader Relationship Specialty Start Date End Date Terrance Alves MD [address] [place] [address] PCP - General Internal Medicine 01/12/18 documented as of this encounter
--- OUTSIDE RECORDS SUMMARY | 2024-03-26 16:32 | XMS_ITS | Encounter Summary ---
[place] [address] Care Team Providers Care Proprietary Trader Name Role Phone Terrance Alves MD Primary Care Provider Encounter Details Date Type Department Care Team (Latest Contact Info) Description 06/28/2022 Travel Social History Tobacco Use Types Packs/Day [...] on filedocumented in this encounter Care Teams Proprietary Trader Relationship Specialty Start Date End Date Terrance Alves MD [address] [place] [address] PCP - General Internal Medicine 01/12/18 documented as of this encounter
--- OUTSIDE RECORDS SUMMARY | 2024-03-26 16:32 | XMS_ITS | Encounter Summary ---
[place] [address] Care Team Providers Care Java Websphere Developer Name Role Phone Terrance Alves MD Primary Care Provider [phone] Encounter Details Date Type Department Care Team (Latest Contact Info) Description 03/23/2023 8:45 AM EDT [place] [phone] Toxic effect of venom of bees, accidental [...] Sign Reading Time Taken Comments Blood Pressure 116/74 03/23/2023 8:41 AM EDT Pulse 68 03/23/2023 8:41 AM EDT Temperature - - Respiratory Rate - - Oxygen Saturation 97% 03/23/2023 8:41 AM EDT Inhaled Oxygen Concentration - - Weight - - Height - - Body Mass Index - - documented in this encounter Progress Notes * Zoraida Duran LPN - 03/23/2023 8:45 AM EDT Patient: Baldo Carty Jr. 1980 [id number] Documentation of screening pre-immunotherapy questionnaire responses See [...] Rxn: < palm EXP: 02/18/24 LOT #: [id number] RAISIN WASHER:HollisterStier Extract: Wasp Dilution 100mcg/mL Dose: 1.0mL Site: right upper arm subcutaneous upper Rxn: < palm EXP: 03/06/24 LOT #: [id number] RAISIN WASHER:HollisterStier Extract: Honeybee Dilution: 100mcg/mL Dose: 1.0mL Site: right upper arm subcutaneous lower Rxn: < palm EXP: 03/06/24 LOT#: [id number] RAISIN WASHER:HollisterStier Patient was observed here in the waiting area for 30 minutes. No adverse side effects were noted. Patient ambulated from clinic in stable condition. documented in this encounter Plan of Treatment Not on file documented as of this encounter Visit Diagnoses Diagnosis Toxic effect of venom of bees, accidental (unintentional), initial encounter documented in this encounter Care Teams Java Websphere Developer Relationship Specialty Start Date End Date Terrance Alves MD [address] [place] [address] PCP - General Internal Medicine 01/12/18 documented as of this encounter
--- OUTSIDE RECORDS SUMMARY | 2024-03-26 16:32 | XMS_ITS | Encounter Summary ---
[place] [address] Care Team Providers Care Retail Receiving Clerk Name Role Phone Terrance Alves MD Primary Care Provider [phone] Encounter Details Date Type Department Care Team (Latest Contact Info) Description 03/23/2023 Travel Social History Tobacco Use Types Packs/Day [...] on filedocumented in this encounter Care Teams Retail Receiving Clerk Relationship Specialty Start Date End Date Terrance Alves MD [address] [place] [address] PCP - General Internal Medicine 01/12/18 documented as of this encounter
--- OUTSIDE RECORDS SUMMARY | 2024-03-26 16:32 | XMS_ITS | Encounter Summary ---
Author [place] [address] Care Team Providers Care Slag Skimmer Name Role Phone Terrance Alves MD Primary Care Provider [phone] Encounter Details Date Type Department Care Team (Latest Contact Info) Description 01/26/2023 Travel Social History Tobacco Use Types Packs/Day [...] on filedocumented in this encounter Care Teams Slag Skimmer Relationship Specialty Start Date End Date Terrance Alves MD [address] [place] [address] PCP - General Internal Medicine 01/12/18 documented as of this encounter
--- OUTSIDE RECORDS SUMMARY | 2024-03-26 16:32 | XMS_ITS | Encounter Summary ---
[place] [address] Care Team Providers Care Special Forces Warrant Officer Name Role Phone Terrance Alves MD Primary Care Provider [phone] Encounter Details Date Type Department Care Team (Latest Contact Info) Description 06/28/2022 7:30 AM EST Clinical [place] [address] Toxic effect of venom of bees, accidental [...] Sign Reading Time Taken Comments Blood Pressure 116/76 06/28/2022 7:33 AM EST Pulse 64 06/28/2022 7:33 AM EST Temperature - - Respiratory Rate - - Oxygen Saturation 97% 06/28/2022 7:33 AM EST Inhaled Oxygen Concentration - - Weight - - Height - - Body Mass Index - - documented in this encounter Progress Notes * Sharee Toney RN - 06/28/2022 7:30 AM EST Patient: Baldo Carty . 1980 [id number] Documentation of screening pre-immunotherapy questionnaire responses See [...] Yes Injections given per Dr. Beckham's orders. Patient Vitals for the past 24 hrs: Pulse BP SpO2 06/28/22 0733 64 116/76 97 % Injections given: Building (STOCK VIALS) Extract: Mixed Vespid Dilution: 100mcg/mL Dose: 0.1mL Site: right upper arm subcutaneous upper Rxn: < palm EXP: 06/03/23 LOT #: [id number] CLINIC SPECIALIST:JasonisterStier Extract: Wasp Dilution 100mcg/mL Dose: 0.1mL Site: left upper arm subcutaneous upper Rxn: < palm EXP: 05/09/23 LOT #: [id number] CLINIC SPECIALIST:JasonisterStier Extract: Honeybee Dilution: 100mcg/mL Dose: 0.1mL Site: left upper arm subcutaneous lower Rxn: < palm EXP: 05/09/23 LOT#: [id number] CLINIC SPECIALIST:Zenopstier Patient was observed here in the waiting area for 30 minutes. No adverse side effects were noted. Patient ambulated from clinic in stable condition. documented in this encounter Plan of Treatment Not on file documented as of this encounter Visit Diagnoses Diagnosis Toxic effect of venom of bees, accidental (unintentional), initial encounter documented in this encounter Care Teams Special Forces Warrant Officer Relationship Specialty Start Date End Date Terrance Alves MD [address] [place] [address] PCP - General Internal Medicine 01/12/18 documented as of this encounter
--- OUTSIDE RECORDS SUMMARY | 2024-03-26 16:32 | XMS_ITS | Encounter Summary ---
[place] [address] Care Team Providers Care Tugger Operator Name Role Phone Terrance Alves MD Primary Care Provider [phone] Encounter Details Date Type Department Care Team (Latest Contact Info) Description 06/20/2022 Travel Social History Tobacco Use Types Packs/Day [...] on filedocumented in this encounter Care Teams Tugger Operator Relationship Specialty Start Date End Date Terrance Alves MD [address] [place] [address] PCP - General Internal Medicine 01/12/18 documented as of this encounter
--- OUTSIDE RECORDS SUMMARY | 2024-03-26 16:32 | XMS_ITS | Encounter Summary ---
[place] [address] Care Team Providers Care Equipment Processor Name Role Phone Terrance Alves MD Primary Care Provider [phone] Encounter Details Date Type Department Care Team (Latest Contact Info) Description 08/19/2022 Travel Social History Tobacco Use Types Packs/Day [...] on filedocumented in this encounter Care Teams Equipment Processor Relationship Specialty Start Date End Date Terrance Alves MD [address] [place] [address] PCP - General Internal Medicine 01/12/18 documented as of this encounter
--- OUTSIDE RECORDS SUMMARY | 2024-03-26 16:32 | XMS_ITS | Encounter Summary ---
[place] [address] Care Team Providers Care Manager Commercial Name Role Phone Terrance Alves MD Primary Care Provider [phone] Encounter Details Date Type Department Care Team (Latest Contact Info) Description 05/31/2022 9:15 AM EST [place] [phone] Toxic effect of venom of bees, accidental [...] Sign Reading Time Taken Comments Blood Pressure 120/84 05/31/2022 9:14 AM EST Pulse 72 05/31/2022 9:14 AM EST Temperature - - Respiratory Rate - - Oxygen Saturation 97% 05/31/2022 9:14 AM EST Inhaled Oxygen Concentration - - Weight - - Height - - Body Mass Index - - documented in this encounter Progress Notes * Haylee Sosa RN - 05/31/2022 9:15 AM EST Patient: Baldo Carty . 1980 [id number] Documentation of screening pre-immunotherapy questionnaire responses See [...] VIALS) Extract: Mixed Vespid Dilution: 30mcg/mL Dose: 0.1mL Site: left upper arm subcutaneous upper Rxn: < palm EXP: 06/03/22 LOT #: [id number] MAIL PROCESSING CLERK:HollisterStier Extract: Wasp Dilution 10mcg/mL Dose: 0.1mL Site: right upper arm subcutaneous upper Rxn: < palm EXP: 06/03/22 LOT #: [id number] MAIL PROCESSING CLERK:HollisterStier Extract: Honeybee Dilution: 10mcg/mL Dose: 0.1mL Site: right upper arm subcutaneous lower Rxn: < palm EXP: 06/03/22 LOT#: [id number] PROCESSING CLERK:[employer] GamesisterStier Patient was observed here in the waiting area for 30 minutes. No adverse side effects were noted. Patient ambulated from clinic in stable condition. documented in this encounter Plan of Treatment Not on file documented as of this encounter Visit Diagnoses Diagnosis Toxic effect of venom of bees, accidental (unintentional), initial encounter documented in this encounter Care Teams Manager Commercial Relationship Specialty Start Date End Date Terrance Alves MD [address] [place] [address] PCP - General Internal Medicine 01/12/18 documented as of this encounter
--- OUTSIDE RECORDS SUMMARY | 2024-03-26 16:32 | XMS_ITS | Encounter Summary ---
[place] [address] Care Team Providers Care Or First Assist Registered Nurse Name Role Phone Terrance Alves MD Primary Care Provider [phone] Encounter Details Date Type Department Care Team (Latest Contact Info) Description 05/09/2022 9:30 AM EST Clinical [place] [id number] Toxic effect of venom of bees, accidental [...] Reading Time Taken Comments Blood Pressure 116/76 05/09/2022 9:33 AM EST Pulse 77 05/09/2022 9:33 AM EST Temperature - - Respiratory Rate - - Oxygen Saturation 98% 05/09/2022 9:33 AM EST Inhaled Oxygen Concentration - - Weight - - Height - - Body Mass Index - - documented in this encounter Progress Notes * Haylee Sosa RN - 05/09/2022 9:30 AM EST Patient: Baldo Campbellallen Scott. 1980 [id number] Documentation of screening pre-immunotherapy questionnaire responses See [...] the past 24 hrs: Pulse BP SpO2 05/09/22 0933 77 116/76 98 % Injections given: Building (STOCK VIALS) Extract: Mixed Vespid Dilution: 0.3mcg/mL Dose: 0.5mL Site: right upper arm subcutaneous upper Rxn: < palm EXP: 05/20/22 LOT #: [id number] BUSINESS ARCHITECT:JasonisterStier Extract: Wasp Dilution 0.1mcg/mL Dose: 0.5mL Site: left upper arm subcutaneous upper Rxn: < palm EXP: 05/27/22 LOT #: [id number] BUSINESS ARCHITECT:JasonisterStier Extract: Honeybee Dilution: 0.1mcg/mL Dose: 0.5mL Site: left upper arm subcutaneous lower Rxn: < palm EXP: 05/20/22 LOT#: [id number] BUSINESS ARCHITECT:[employer] Carlostier Patient was observed here in the waiting area for 30 minutes. No adverse side effects were noted. Patient ambulated from clinic in stable condition. documented in this encounter Plan of Treatment Not on file documented as of this encounter Visit Diagnoses Diagnosis Toxic effect of venom of bees, accidental (unintentional), initial encounter documented in this encounter Care Teams Or First Assist Registered Nurse Relationship Specialty Start Date End Date Terrance Alves MD [address] [place] [address] PCP - General Internal Medicine 01/12/18 documented as of this encounter
--- OUTSIDE RECORDS SUMMARY | 2024-03-26 16:32 | XMS_ITS | Encounter Summary ---
[place] [address] Care Team Providers Care Retirement Consultant Name Role Phone Terrance Alves MD Primary Care Provider [phone] Encounter Details Date Type Department Care Team (Latest Contact Info) Description 06/10/2022 Travel Social History Tobacco Use Types Packs/Day [...] on filedocumented in this encounter Care Teams Retirement Consultant Relationship Specialty Start Date End Date Terrance Alves MD [address] [place] [address] PCP - General Internal Medicine 01/12/18 documented as of this encounter
--- OUTSIDE RECORDS SUMMARY | 2024-03-26 16:32 | XMS_ITS | Encounter Summary ---
[place] [address] Care Team Providers Care Drafter Geological Name Role Phone Terrance Alves MD Primary Care Provider [phone] Encounter Details Date Type Department Care Team (Latest Contact Info) Description 08/01/2022 Travel Social History Tobacco Use Types Packs/Day [...] on filedocumented in this encounter Care Teams Drafter Geological Relationship Specialty Start Date End Date Terrance Alves MD [address] [place] [address] PCP - General Internal Medicine 01/12/18 documented as of this encounter
--- OUTSIDE RECORDS SUMMARY | 2024-03-26 16:32 | XMS_ITS | Encounter Summary ---
[place] [address] Care Team Providers Care Diamond Sizer And Sorter Name Role Phone Terrance Alves MD Primary Care Provider Encounter Details Date Type Department Care Team (Latest Contact Info) Description 05/16/2022 Travel Social History Tobacco Use Types Packs/Day [...] on filedocumented in this encounter Care Teams Diamond Sizer And Sorter Relationship Specialty Start Date End Date Terrance Alvse MD [address] [place] [address] PCP - General Internal Medicine 01/12/18 documented as of this encounter
--- OUTSIDE RECORDS SUMMARY | 2024-03-26 16:32 | XMS_ITS | Encounter Summary ---
Author Organization [facility] [place] [address] Care Team Providers Care Weigh Box Tender Name Role Phone Terrance Alves MD Primary Care Provider [phone] Encounter Details Date Type Department Care Team (Latest Contact Info) Description 09/02/2022 9:45 AM EDT [place] [phone] Toxic effect of venom of bees, accidental [...] Sign Reading Time Taken Comments Blood Pressure 118/76 09/02/2022 9:26 AM EDT Pulse 58 09/02/2022 9:26 AM EDT Temperature - - Respiratory Rate - - Oxygen Saturation 99% 09/02/2022 9:26 AM EDT Inhaled Oxygen Concentration - - Weight - - Height - - Body Mass Index - - documented in this encounter Progress Notes * Lashon De La Cruz RN - 09/02/2022 9:45 AM EDT Patient: Baldo Carty Jr. 1980 [id number] Documentation of screening pre-immunotherapy questionnaire responses See scanned document of pre-immunotherapy screening questionnaire. To briefly summarize (place an X in the box that corresponds to patient's answers): [xx] The patient answered no to all screening questions #1-6. [] The patient answered yes to at least one of the screening questions (document findings below). Answers documented on questionnaire: Documentation of Dose Adjustments: Dose adjustment needed prior to injection: [n] If yes, please fill out the following: Reason for dose adjustment: New dose and/or change in build: Documentation of Injection: Baldo Carty Jr. has come into the Allergy Clinic for immunotherapy injections. Antihistamine taken as directed. Patient has required Epipen available, verified as current and with patient. Injections given per Dr. Beckham's orders. Patient Vitals for the past 24 hrs: Pulse BP SpO2 09/02/22 0926 58 118/76 99 % Injections given: Building (STOCK VIALS) Extract: Mixed Vespid Dilution: 300mcg/mL Dose: 1.0mL Site: right upper arm subcutaneous upper Rxn: < palm EXP: 09/01/23 LOT #: [id number] REGISTERED NURSE:JasonisterStier Extract: Wasp Dilution 100mcg/mL Dose: 1.0mL Site: left upper arm subcutaneous upper Rxn: < palm EXP: 09/01/23 LOT #: [id number] REGISTERED NURSE:JasonisterStier Extract: Honeybee Dilution: 100mcg/mL Dose: 1.0mL Site: left upper arm subcutaneous lower Rxn: < palm EXP: 07/28/23 LOT#: [id number] REGISTERED NURSE:HollisterStier Patient was observed here in the waiting area for 30 minutes. No adverse side effects were noted. Patient ambulated from clinic in stable condition. documented in this encounter Plan of Treatment Not on file documented as of this encounter Visit Diagnoses Diagnosis Toxic effect of venom of bees, accidental (unintentional), initial encounter documented in this encounter Care Teams Weigh Box Tender Relationship Specialty Start Date End Date Terrance Alves MD [address] [place] [address] PCP - General Internal Medicine 01/12/18 documented as of this encounter
--- OUTSIDE RECORDS SUMMARY | 2024-03-26 16:32 | XMS_ITS | Encounter Summary ---
[place] [address] Care Team Providers Care Washer Engineer Name Role Phone Terrance Alves MD Primary Care Provider [phone] Encounter Details Date Type Department Care Team (Latest Contact Info) Description 02/09/2023 Travel Social History Tobacco Use Types Packs/Day [...] on filedocumented in this encounter Care Teams Washer Engineer Relationship Specialty Start Date End Date Terrance Alves MD [address] [place] [address] PCP - General Internal Medicine 01/12/18 documented as of this encounter
--- OUTSIDE RECORDS SUMMARY | 2024-03-26 16:32 | XMS_ITS | Encounter Summary ---
[place] [address] Care Team Providers Care Process Analyst Name Role Phone Terrance Alves MD Primary Care Provider [phone] Reason for Referral * Diagnostic Test (Routine) - Closed Specialty Diagnoses / Procedures Referred By Contac t Referred To Contact Radiology Diagnoses VT (ventricular tachycardia) Procedures MRI Cardiac Morphology Function wwo Contrast Rigoberto Gomez MD [facility] [place] [address] [place] [place] [address] Referral ID Status Reason Start Date Expiration Date V isits Requested Visits Authorized [id number] Closed Specialty Service Requested 07/22/2022 01/20/2024 1 1 * Diagnostic Test (Routine) - Closed Specialty Diagnoses / Procedures Referred By Contac t Referred To Contact Diagnoses VT (ventricular tachycardia) Procedures Echocardiogram Stress (Treadmill) Rigoberto Gomez MD [facility] [place] [address] [facility] [place] [address] Referral ID Status Reason Start Date Expiration Date V isits Requested Visits Authorized [id number] Closed Specialty Service Requested 07/22/2022 07/22/2023 1 1 Reason for Visit * Consultation (Urgent) - Closed Specialty Diagnoses / Procedures Referred By Contac t Referred To Contact Cardiology Diagnoses History of ventricular tachycardia Cardiac arrhythmia, unspecified cardiac arrhythmia type HX VTACH, CARDIAC ARRHYTHMIA Suyapa Felton MD [address] [place] [address] [facility] [place] [facility] [address] [place] [phone] Referral ID Status Reason Start Date Expiration Date V isits Requested Visits Authorized [id number] Closed Consult, Test & Treat 07/11/2022 07/11/2023 1 1 Encounter Details Date Type Department Care Team (Late st Contact Info) Description 07/22/2022 10:00 AM EST Office Visit Cardiology at [address] [phone] Rigoberto Gomez MD [facility] [place] [address] VT (ventricular tachycardia); Palpitations; Atypical chest pain; Racing heart beat Social History Tobacco Use Types Packs/Day Years Used Date Smoking Tobacco: Former Cigarettes Q uit: 2001 Smokeless Tobacco: Never Sex and Gender Information Value Date Recorded Sex Assigned at Not on file Gender Identity Not on file Sexual Orientation Not on file documented as of this encounter Last Filed Vital Signs Vital Sign Reading Time Taken Comments Blood Pressure 130/72 07/22/2022 10:07 AM EST Pulse 72 07/22/2022 10:07 AM EST Temperature - - Respiratory Rate - - Oxygen Saturation 99% 07/22/2022 10:07 AM EST Inhaled Oxygen Concentration - - Weight 105.7 kg (233 lb) 07/22/2022 10:07 AM EST Height 177.8 cm (5' 10) 07/22/2022 10:07 AM EST Body Mass Index 33.43 07/22/2022 10:07 AM EST documented in this encounter Patient Instructions * Patient Instructions* Rigoberto Gomez MD - 07/22/2022 10:00 AM EST Start metoprolol succinate 25mg by mouth daily Schedule your stress test and cardiac MRI Continue your event monitor Refrain from methylphenidate use for now. Limit alcohol and caffeine. If you have symptoms of the skipped beats again, call an ambulance and try to cough hard to get it to stop. Come back and see me in about 6 weeks after testing Ask your primary care doc to forward me your labs diagnosis ventricular tachycardia documented in this encounter Progress Notes * Rigoberto Gomez MD - 07/22/2022 10:00 AM EST Images from the original note were not included. [facility] [place] [address] [address] CARDIOLOGY OUTPATIENT NOTE PRIMARY CARE PROVIDER: Terrance Alves MD REFERRING PROVIDER: Suyapa Felton PROBLEM LIST: Patient Active Problem List Diagnosis ??? Fainting MEDICATIONS: Current Outpatient Medications Medication Sig Dispense Refill ??? EPINEPHrine 0.3 mg/0.3 mL Auto-Injector Inject 0.3 mLs into the muscle as needed. 1 each 0 ??? methylphenidate (RITALIN) 20 mg Tablet Take 20 mg by mouth 2 times daily as needed. No current facility-administered medications for this visit. Subjective: Patient ID: Marlen Vivar Jr. is a 42 y.o. male with no prior cardiac history. Medical history isotherwise notable for ADHD. He presents today for monomorphic VT captured on an Smartpay Watch. HPI Mr. Vivar has no relevant prior cardiac history/diagnoses. He was seen in Cardiology by Dr. Wells in 2018 for an episode of fainting after multiple bee- stings, which was felt not to be cardiac. Nevertheless he underwent work-up with an unremarkable EKG and Holter Monitor, normal echocardiogram and ultimately a Neo Exercise NM MPI for the evaluation of vague non-exertional chest discomfort whichwas normal. He is now newly referred after his Apple Watch alerted and tracings were suggestive of monomorphic VT on 05/23/22 (scanned images below in objective data). He reports today that in May he was driving down the road and he just felt his heart skip a beat, then another, and it wouldn't stop for about 4-5 minutes. He reports he tried to cough and pound his chest a bit but it didn't stop. He had some dizziness with this but didn't really feel like he was going to pass out. Eventually it seemed to stop on its own. Since then he has had a few sensations of skipped beats with a similar feeling, lasting a few seconds at most, but nothing sustained. He sometimes feels high heart rates and simultaneous to this has a feeling of a pit in the stomachwhich is different from the sensation he had in the car. This seems to come on randomly, but also occasionally with exercise. He feels like sometimes he can exert himself no problem without feeling his heart race and other times it seems to race inappropriately. Of note he reports he was in his usual health in May, had not had any recent illnesses, was not dehydrated, hadn't used any medications or drugs. He reports he got an Apple Watch at the encouragement of his because he felt his heart was off over the summer. He has trouble totally verbalizing what this is but it has been a variety of different sensations, sometimes while exercising sometimes at rest. He may have passed out in December of this year after another beesting (he doesn't think he totally passed out, witnesses told him he passed out). The only other time he passed out in the past was was after a beesting in 2017 as noted above. Occasional sharp stabbing left upper (near clavicle) chest pain and central chest pain just in the past couple of weeks. He is currently wearing a 30 day event monitor, due to finish in 2-3 weeks. He reports he had frequent skipped beats in the first couple days he had it on, more quiescent since. Has a prescription for methylphenidate to be used prn, uses about 1-2 times per month. He stopped at the recommendation of his PCP and referring provider after recent events. Reportly on labs checked last week he has some liver issues but we don't have those labs. He is not sure if they checked cholesterol or iron studies. Review of Systems As per HPI Family history: Father- DM2 Mother- migraines Siblings- sister who is healthy PGF with ASCVD/[place], of [place] mid 50s. First cousin early in COVID of unclear causes (around age 40) but he had a ton of issues. No other family who otherwise suddenly or unexpectedly. 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 No M/G/R. Event monitor in place. Respirations unlabored, CTAB Abd thin, benign WWP, no edema, normal distal pulses Non-diaphoretic, no acute rashes on limited exam AAOx3, moving all extremities normally, gait and station normal Appropriate, cooperative. Expressing an appropriate degree of anxiety/concern to the topics discussed. Good historian. Good insight and judgment. No results found for this or any previous visit (from the past 72 hour(s)). Lipid Panel ECG (07/22/2022): personally reviewed and interpreted NSR @ 68 bpm, QRS duation 114ms, otherwise normal ECG (01/29/2018): personally reviewed and interpreted NSR @ 84 bpm, normal TTE ([facility] scanned, 02/01/2018): Exercise Stress NM MPI (02/05/2018): Exercise Component 13:13 minutes 15.70 METS 193 bpm (105% MPHR) Stopped for fatigue. No EKG changes, occasional PVCs. FINDINGS: No fixed or reversible perfusion defects are present. ?? Functional analysis: ?? Myocardial function: There is normal wall motion and wall thickening. Left ventricular ejection fraction: 70 % (normal greater than 50%) ? IMPRESSION No ischemia or scar. Left ventricular function is normal. Holter Monitor [facility] (2018) Baseline rhythm sinus. Rare single PAC. No SVT or atrial fibrillation. Rare single PVC. No VT. Nocturnal heart rates as low as 50-55 bpm, sinus bradycardia. No symptoms. Average heart rate 72 bpm. [employer]Rack Tracings (05/23/22): Assessment and Plan: # Monomorphic VT on Apple Watch # Palpitations, Heart Racing # Atypical Chest Pain Assessment - strips personally viewed, as above, and convincing for monomorphic VT, apparently unprovoked. Although there is some irregularity, I think this is predominantly due to some speeding up and slowing down, intermittent capture beats and fusion beats. Does not appear to be irregularly irregular (unlikely afib with aberrancy). We discussed the seriousness of this rhythm. It is encouraginghe has not had any sustained events since May. We will start suppressive therapy with metoprolol immediately, but at a low dose given young age and active lifestyle. I advised him that metoprolol can result in fatigue, depression and erectile dysfunction and that he should let me know if theseoccur so we can consider alternative therapies. 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 He would definitely prefer ablation over ongoing medical therapyso I will plan to refer him to EP once we have evaluated for underlying etiologies. - Start metoprolol succinate 25mg po qd - Complete event monitor - Exercise stress echo to assess for structural/functional abnormality, exercise induced arrhythmia, ischemia - Cardiac MRI to assess for myocardial and infiltrative diseases, underlying genetic are more subtle structural issue - DC methylphenidate, limit ETOH and caffeine - Advised against significant exertion pending work-up. Advised not to go swimming. - Advised that if he feels sustained skipped beats like he did in May, to call EMS immediately. Also advised that attempts to forcefully cough could be helpful. - Obtain outside labs done last week before potentially repeating. Particularly interested in iron studies given report of liver issues - hemochromatosis could potentially be a unifying diagnosis - Referral to EP once stress echo is complete and cMRI is scheduled # Cardiovascular Risk Management Assessment - patient is meeting these goals - Advised patient to pursue a heart healthy diet, low in saturated/trans fats and refine sugars - Advised patient to engage in regular moderate cardiovascular exercise for 150 minutes per week # Return to Care - [place] after the above testing - I will call with abnormal results, or message otherwise A total of 70 minutes was spent today in review of the records, personal interpretation of testing results, medication reconciliation, [id number] interview, examination and counseling of the patient, coordination of care and documentation of the above. Thank you for the opportunity to participate in this patient's cardiovascular care. All questions were answered and I look forward to the next visit. Rigoberto Gomez MD Cardiovascular Medicine [facility] 07/22/2022 documented in this encounter Plan of Treatment Not on file documented as of this encounter Procedures Procedure Name Priority Date/Time Associated Diagnosis Comments EKG 12-LEAD Routine 07/22/2022 10:19 AM EST VT (ventricular tachycardia) documented in this encounter [...] who have questions please contact the health senior care provider that requested your imaging first. ? Electronically signed by: Jagdeep Florence MD, [facility] ([phone]), at 09/12/2022 4:14 PM Narrative 09/12/2022 4:14 PM EDT EXAMINATION: MRI [...] previous infarct or resting myocardial ischemia. TI Glassware Verifier: TI Glassware Verifier demonstrates normal nulling patterns. Delayed enhancement: Delayed [...] suggest previous infarct or restingmyocardial ischemia. TI Glassware Verifier: TI Glassware Verifier demonstrates normal nulling patterns. Delayed enhancement: Delayed [...] patients who have questions please contactthe health senior care provider that requested your imaging first. Electronically signed by: Jagdeep Florence MD, [facility]([phone]), at 09/12/2022 4:14 PM Rigoberto Gomez MD IMG MRI ORDERABLES * STRESS ECHO W CONTRAST W LMTD SPEC DOPP COLOR DOPP (08/09/2022 2:03 PM EST) EF 55 HEARTLAB SYSTEM Anatomical Region Laterality Modality Cardiac Other 08/09/2022 1:12 PM EST Narrative 08/09/2022 3:03 PM EST ? Exercise Stress Echocardiogram Report Name: MARLEN VIVAR JR. ? Study Date: 08/09/2022 01:12 PMBP: 118/82 mmHg ? Patient Location: 4A 0000 ? HR: 58 : 1980 ? Height: 178 cm ? Account: [id number] Age: 42 yrs ? Weight: 106 kg Gender: Male ?BSA: 2.2 m2 Ordering Physician: RIGOBERTO GOMEZ Referring Physician: RIGOBERTO GOMEZ Performed By: Jane Nunes RDCS Reason For Study: Ventricular tachycardia Exam Location: [facility]. Interpretation Summary Good exercise tolerance (130% of predicted average for age and gender). No ventricular ectopy during this test. Normal stress echo, without echocardiographic or electrocardiographic evidence of ischemia at a diagnostic level of stress. Stress Results ? Protocol: ??Neo ?Maximum Predicted HR: ?? 178 bpm ? Target HR: 151 bpm ?% Maximum Predicted HR: 99 % ? Duration ??Heart ??Stage ?? (mm:ss) ??Rate ?BP ?Comment ? (bpm) ?? Rest ? 58 ?? 118/82 Stage 1 ?? 3:00 ? 94 ?? 136/82 Stage 2 ?? 3:00 ? 118 ??148/84Patient reported fluttering in chest that ? corresponding with atrial ectopty. Stage 3 ?? 3:00 ? 151 ??174/82 Stage 4 ?? 1:30 ? 176 ?/ RecoveryR ??6:00 ? 93 ?? 124/70 ?Stress Duration: ?? 10:30 mm:ss ?Recovery Time: 6:00 mm:ss ?Maximum Stress HR: 176 bpm ?METS: ?12 Procedure Suboptimal quality. Stress echocardiogram with contrast, [...] ECG in recovery demonstrated: normal sinus rhythm. ? 2D Measurements ?IVSd: 0.80 cm ?LVIDd: 5.5 cm ?LVIDs: 3.4 cm ?LVPWd: 1.0 cm ?LV mass(C)d: 185.8 grams ?LV mass(C)dI: 83.3 grams/m2 ?Ao root diam: 3.5 cm ?Ao root diam index: 1.5 ?asc Aorta Diam: 3.0 cm ?LVOT diam: 2.2 cm Doppler MV E max franco: 67.3 cm/sec MV A max franco: 48.2 cm/sec MV E/A: 1.4 MV dec time: 0.23 sec Lat Peak E' Franco: 17.2 cm/sec E/ e' (lat): 3.9 Med Peak E' Franco: 11.2 cm/sec E/e' (med): 6.0 E/e' Average: 5.0 I ?WMSI = 1.00 ? % Normal = 100 II ?WMSI = 1.00 ? % Normal = 100 ?Segments ??Size X - Cannot ?2 - ?4 - ?1-2 ? small Interpret ?1 - Normal ?? Hypokinetic 3 - Akinetic Dyskinetic ?? 3-5 ? moderate 5 - ? 6-14 ?large Aneurysmal ?15-16 ?? diffuse Procedure Note Demian Orr MD - 08/09/2022 Exercise Stress Echocardiogram Report Name: MARLEN VIVARJR. Study Date: 301:12 PMBP: 118/82 mmHg Patient Location: [id number] HR: 58 : 1980 Height: 178 cm Account: [id number] Age: 42 yrs Weight: 106 kg Gender: Male BSA: 2.2 m2 Ordering Physician: RIGOBERTO GOMEZ Referring Physician: RIGOBERTO GOMEZ Performed By: Jane Nunes RDCS Reason For Study: Ventricular tachycardia Exam Location: [facility]. Interpretation Summary Good exercise tolerance (130% of predicted average for age and gender). No ventricular ectopy during this test. Normal stress echo, without echocardiographic or electrocardiographicevidence of ischemia at a diagnostic level of stress. Stress Results Protocol: Neo Maximum Predicted HR: 178 bpm Target HR: 151 bpm % Maximum Predicted HR: 99 % Duration Heart Stage (mm:ss) Rate BP Comment (bpm) Rest 58 118/82 Stage 1 3:00 94 136/82 Stage 2 3:00 118 148/84Patient reported fluttering in chestthat corresponding with atrial ectopty. Stage 3 3:00 151 174/82 Stage 4 1:30 176 / RecoveryR 6:00 93 124/70 Stress Duration: 10:30 mm:ss Recovery Time: 6:00mm:ss Maximum Stress HR: 176 bpm METS: 12 Procedure Suboptimal quality. Stress echocardiogram with contrast, with limitedspectral and color Doppler. Image enhancement Definity was used for left ventricular opacification. The patient's blood pressure was normal with exercise.Exercise capacity was good. The patient reported no chest pain. The study wasterminated because of fatigue. Left Ventricle Left ventricle is of normal size. Wall thickness is normal. Leftventricular size and systolic function is normal. Left ventricular ejection fraction isestimated visually at 55%. There are no segmental wall motion abnormalities. Right Ventricle The right ventricle is probably normal in size. Right ventricular functionis probably normal. Aortic Valve The aortic valve is structurally and functionally normal. The aortic valveis tricuspid. There is no aortic stenosis. The aortic leaflet excursion isnormal. There is no aortic regurgitation. Mitral Valve The mitral valve is structurally and functionally normal. There is tracemitral regurgitation. Tricuspid Valve The tricuspid valve is structurally and functionally normal. There istrace tricuspid regurgitation. Great Vessels The aortic root is of normal size. No abnormalities are identified.Ascending aorta is normal in size. Effusion The pericardium appears normal. There is no pericardial effusion. Rest ECG/Medications The baseline rhythm demonstrates sinus bradycardia. The patient's oxygen saturation at baseline was 98%. The patient's resting blood pressure wasnormal at baseline. The patient is on the following cardiac medications:. Betablocker. Beta christiano was held for 24 hours. Stress ECG There was no new ST segment depression with stress. PAC's with rare. Thepatient's oxygen saturation during stress was 97%. Stress Echo The left ventricular ejection fraction is hyperdynamic at peak exercise.There was normal augmentation of all left ventricular wall segments post exercise. Recovery No new ST segment changes during recovery. The ECG in recoverydemonstrated: normal sinus rhythm. 2D Measurements IVSd: 0.80 [...] cm/sec E/e' (med): 6.0 E/e' Average: 5.0 I WMSI = 1.00 % Normal = 100 II WMSI = 1.00 % Normal = 100 SegmentsSize X - Cannot 2 - 4 - 1-2small Interpret 1 - Normal Hypokinetic 3 - Akinetic Dyskinetic 3-5moderate 5 - 6-14large Aneurysmal 15-16diffuse Rigoberto Gomez MD ECHO ORDERABLES * EKG 12 Lead (07/22/2022 10:19 AM EST) Ventricular rate 68 BPM MUSE SYSTEM Atrial Rate 68 BPM MUSE SYSTEM P-R Interval 166 ms MUSE SYSTEM QRS Duration 114 ms MUSE SYSTEM Q-T Interval 392 ms MUSE SYSTEM QTC Calculated (Bezet) 416 ms MUSE SYSTEM Calculated P [employer] -2 degrees MUSE SYSTEM Calculated R [employer] 20 degrees MUSE SYSTEM Calculated T [employer] 13 degrees MUSE SYSTEM INTERPRETATION Normal sinus rhythm Normal ECG When compared with ECG of 29-JAN-2018 08:42, No significant change was found Confirmed by fellow MD Yue, Georgina ([id number]) on 07/24/2022 5:16:00 PM Confirmed by MD ROSE, MALATHI ([id number]) on 07/25/2022 4:40:15 PM MUSE SYSTEM 07/22/2022 10:1 9 AM EST 07/25/2022 4:40 PM EST Rigoberto Gomez MD ECG ORDERABLES MUSE SYSTEM documented in this encounter Visit Diagnoses Diagnosis VT (ventricular tachycardia) Paroxysmal ventricular tachycardia Palpitations Atypical chest pain Other chest pain Racing heart beat Tachycardia, unspecified VT (ventricular tachycardia) Paroxysmal ventricular tachycardia VT (ventricular tachycardia) Paroxysmal ventricular tachycardia documented in this encounter Care Teams Process Analyst Relationship Specialty Start Date End Date Terrance Alves MD [address] [place], [place] [address] PCP - General Internal Medicine 01/12/18 documented as of this encounter
--- OUTSIDE RECORDS SUMMARY | 2024-03-26 16:32 | XMS_ITS | Encounter Summary ---
Author Organization [facility] [place] [address] Care Team Providers Care Tire Recapping Machine Operator Name Role Phone Terrance Alves MD Primary Care Provider [phone] Encounter Details Date Type Department Care Team (Late st Contact Info) Description 10/07/2022 3:20 PM EDT Office Visit Cardiology at [address] [id number] Sandra Gomez MD [facility] [place] [address] Ventricular tachycardia (Primary Dx); Symptomatic PVCs; Enlarged RV (right ventricle) Social History Tobacco Use Types Packs/Day Years Used Date Smoking Tobacco: Former Cigarettes Q uit: 2001 Smokeless Tobacco: Never Sex and Gender Information Value Date Recorded Sex Assigned at Not on file Gender Identity Not on file Sexual Orientation Not on file documented as of this encounter Last Filed Vital Signs Vital Sign Reading Time Taken Comments Blood Pressure 121/77 10/07/2022 3:06 PM EDT Pulse 82 10/07/2022 3:06 PM EDT Temperature - - Respiratory Rate - - Oxygen Saturation 97% 10/07/2022 3:06 PM EDT Inhaled Oxygen Concentration - - Weight 103.4 kg (227 lb 14.4 oz) 10/07/2022 3:06 PM EDT Height 177.8 cm (5' 10) 10/07/2022 3:06 PM EDT Body Mass Index 32.7 10/07/2022 3:06 PM EDT documented in this encounter Patient Instructions * Patient Instructions* Sandra Gomez MD - 10/07/2022 3:20 PM EDT Okay to resume usual activities 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 [facility] [place] [address] CARDIOLOGY OUTPATIENT NOTE PRIMARY CARE PROVIDER: Terrance Alves MD REFERRING PROVIDER: Terrance Alves PROBLEM LIST: Patient Active Problem List Diagnosis ??? Fainting MEDICATIONS: Current Outpatient Medications Medication Sig Dispense Refill ??? metoprolol succinate XL (Toprol-XL) 25 mg Tablet Sustained Release 24 hr Take 1 tablet by mouthdaily. 30 tablet 12 ??? EPINEPHrine 0.3 mg/0.3 mL Auto-Injector Inject 0.3 mLs into the muscle as needed. 1 each 0 ??? methylphenidate (RITALIN) 20 mg Tablet Take 20 mg by mouth 2 times daily as needed. No current facility-administered medications for this visit. Subjective: Patient ID: Baldo Carty Jr. is a 42 y.o. male with a history of symptomatic, sustained monomorphic VT. Medical history is otherwise notable for ADHD. He presents today for planned follow up, having established with me in July 2021. HPI Mr. Carty was referred for an episode of monomorphic VT (captured on [employer]) and established with me in July for this issue. At the time of that visit, he endorsed no other sustained symptomsalthough he occasionally experiences skipped beats or a sensation of heart racing. He was already wearing an event monitor at the time of our visit, which had been ordered by his PCP. I started him on metoprolol and ordered an exercise echo stress test as well as a cMRI. On the stress test he had normal exertional capacity with no inducible arrhythmias and no ischemic changes. Structurally, therewere no significant abnormal findings on echo. Cardiac MRI showed a mildly dilated RV with mildly reduced function but no other abnormal findings. The event monitor was scanned in and showed no sustained arrhythmias but rare PVCs (sometimes symptomatic) and a single ventricular triplet. He reports today he feels well. He endorses improved energy since going to monthly on his allergy shots. He thinks the metoprolol has been effective as well- he notes a drop off in palpitations sincestarting it. He has had no sustained episodes either symptomatically or by [employer]. We reviewed all his testing in detail. With regards to his mild RV dilation/dysfunction, he denies any significant lung issues or suspicion of sleep apnea. He has been exposed to dust quite a bit in his life but doesn't have issues with wheezing or shortness of breath. Insignificant smoking history. His says he sometimes snores but he doesn't indicate any signs of excessive daytime sleepiness and the only time he has non-restful sleep is when he is having a bought with insomnia. 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 Review of Systems As per HPI Family history: Father- DM2 Mother- migraines Siblings- sister who is healthy PGF with ASCVD/[place], of [place] mid 50s. First cousin early in COVID [...] the past 24 hrs: Pulse BP SpO2 10/07/22 1506 82 121/77 97 % Pleasant younger male, well appearing NC/AT, [...] Left ventricular function is normal. Holter Monitor [facility] (2018) Baseline rhythm sinus. Rare single PAC. No SVT or atrial fibrillation. Rare single PVC. No VT. Nocturnal heart rates as low as 50-55 bpm, sinus bradycardia. No symptoms. Average heart rate 72 bpm. Apple Watch Tracings (05/23/22): Exercise Echo Stress (08/09/22): Interpretation Summary Good exercise tolerance (130% of predicted average for age and gender). No ventricular ectopy during this test. Normal stress echo, without echocardiographic or electrocardiographic evidence of ischemia at a diagnostic level of stress. Cardiac MRI (09/12/22): IMPRESSION 1. Normal left ventricular size and systolic function. 2. Mildly dilated RV with mildly reduced function. 3. No evidence of late gadolinium enhancement to suggest prior infarct, myocarditis, or infiltrative disease. Cardiac Event Rhythm Monitor (08/18/22): ?? Assessment and Plan: # Monomorphic VT on Apple Watch # Palpitations, Heart Racing # Atypical Chest Pain Assessment - No further sustained episodes since 12/12/22 either by symptoms or monitoring. His symptoms of isolated palpitations (confirmed to be ectopic awareness on event monitor) have significantly decreased with metoprolol. His numerical burden was low. He doesn't have evidence of an underlying structural or ischemic cause of this rhythm and I think it makes sense to refer him to EP for further evaluation and consideration of ablation. I considered ARVC in a patient with arrhythmia and abnormal RV, however, he does not meet criteria for this by the character of his RV dysfunction, by EKGor by other criteria. - Continue metoprolol succinate 25mg po qd - Completed event monitor, exercise stress echocardiogram and cMRI with findings as above - Advised he can resume normal activities as tolerated but to continue to be alert to symptom changes - Advised he not fly a plane until he is at least 6 months out from the event with no recurrence (10/21/22) - Referral to EP as above - Stopped methylphenidate, limit ETOH and caffeine # RV Mild Dilation/Decreased Function Assessment - evidence on cMRI but not echo. 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 - Continue to monitor # Cardiovascular Risk Management Assessment - patient is meeting these goals - Advised patient to pursue a heart healthy diet, low in saturated/trans fats and refine sugars - Advised patient to engage in regular moderate cardiovascular exercise for 150 minutes per week # Return to Care - With EP next convenient available appointment - With me yearly A total of 35 minutes was spent today in review of the records, personal interpretation of testing results, medication reconciliation, [id number] interview, examination and counseling of the patient, coordination of care and documentation of the above. Thank you for the opportunity to participate in this patient's cardiovascular care. All questions were answered and I look forward to the next visit. Sandra Gomez MD Cardiovascular Medicine [facility] 10/07/2022 documented in this encounter Plan of Treatment Not on file documented as of this encounter Visit Diagnoses Diagnosis Ventricular tachycardia- Primary Paroxysmal ventricular tachycardia Symptomatic PVCs Other premature beats Enlarged RV (right ventricle) Cardiomegaly documented in this encounter Care Teams Tire Recapping Machine Operator Relationship Specialty Start Date End Date Terrance Alves MD [address] [place] [address] PCP - General Internal Medicine 01/12/18 documented as of this encounter
--- OUTSIDE RECORDS SUMMARY | 2024-03-26 16:32 | XMS_ITS | Encounter Summary ---
[place] [address] Care Team Providers Care Shorer Name Role Phone Terrance Alves MD Primary Care Provider [phone] Encounter Details Date Type Department Care Team (Latest Contact Info) Description 11/22/2022 Travel Social History Tobacco Use Types Packs/Day [...] on filedocumented in this encounter Care Teams Shorer Relationship Specialty Start Date End Date Terrance Alves MD [address] [place] [address] PCP - General Internal Medicine 01/12/18 documented as of this encounter
--- OUTSIDE RECORDS SUMMARY | 2024-03-26 16:32 | XMS_ITS | Encounter Summary ---
[place] [address] Care Team Providers Care Gage Maker Name Role Phone Terrance Alves MD Primary Care Provider [phone] Encounter Details Date Type Department Care Team (Latest Contact Info) Description 07/18/2022 Travel Social History Tobacco Use Types Packs/Day [...] on filedocumented in this encounter Care Teams Gage Maker Relationship Specialty Start Date End Date Terrance Alves MD [address] [place] [address] PCP - General Internal Medicine 01/12/18 documented as of this encounter
--- OUTSIDE RECORDS SUMMARY | 2024-03-26 16:32 | XMS_ITS | Encounter Summary ---
[place] [address] Care Team Providers Care Iron Caster Name Role Phone Terrance Alves MD Primary Care Provider [phone] Encounter Details Date Type Department Care Team (Latest Contact Info) Description 05/09/2022 Travel Social History Tobacco Use Types Packs/Day [...] on filedocumented in this encounter Care Teams Iron Caster Relationship Specialty Start Date End Date Terrance Alves MD [address] [place] [address] PCP - General Internal Medicine 01/12/18 documented as of this encounter
--- OUTSIDE RECORDS SUMMARY | 2024-03-26 16:32 | XMS_ITS | Encounter Summary ---
Author Organization [facility] [place] [address] Care Team Providers Care Freight Agent Name Role Phone Terrance Alves MD Primary Care Provider [phone] Reason for Referral * Diagnostic Test (Routine) - Closed Specialty Diagnoses / Procedures Referred By Contac t Referred To Contact Diagnoses VT (ventricular tachycardia) Procedures Echocardiogram Stress (Treadmill) Sandra Gomez MD [facility] [place] [address] [facility] [place] [address] Referral ID Status Reason Start Date Expiration Date V isits Requested Visits Authorized [id number] Closed Specialty Service Requested 07/22/2022 07/22/2023 1 1 Reason for Visit * Diagnostic Test (Routine) - Closed Specialty Diagnoses / Procedures Referred By Contac t Referred To Contact Diagnoses VT (ventricular tachycardia) Procedures Echocardiogram Stress (Treadmill) Sandra Gomez MD [facility] [place] [address] [facility] [place] [address] Referral ID Status Reason Start Date Expiration Date V isits Requested Visits Authorized [id number] Closed Specialty Service Requested 07/22/2022 07/22/2023 1 1 Encounter Details Date Type Department Care Team (Latest Contact Info) Description 08/09/2022 12:54 PM EST - 08/09/2022 11:59 PM EST Hospital Encounter Non-Invasive [place] [address] Sandra Gomez MD [facility] [place] [address] VT (ventricular tachycardia) Discharge Disposition: Home Social [...] Procedure Name Priority Date/Time Associated Diagnosis Comments STRESS ECHO W CONTRAST W LMTD SPEC DOPP COLOR DOPP Routine 08/09/2022 2:03 PM EST VT (ventricular tachycardia) documented in this encounter Results * STRESS ECHO W CONTRAST W LMTD SPEC DOPP COLOR DOPP (08/09/2022 2:03 PM EST) EF 55 [id number] SYSTEM Anatomical Region Laterality Modality Cardiac Other 08/09/2022 1:12 PM EST Narrative 08/09/2022 3:03 PM EST ? Exercise Stress Echocardiogram Report Name: BALDO VIVARJR. ? Study Date: 08/09/2022 01:12 PMBP: 118/82 mmHg ? Patient Location: 0000 ? HR: 58 : 1980 ? Height: 178 cm ? Account: [id number] Age: 42 yrs ? Weight: 106 kg Gender: Male ?BSA: 2.2 m2 Ordering Physician: SANDRA GOMEZ Referring Physician: SANDRA GOMEZ Performed By: Jane Nunes RDCS Reason For Study: Ventricular tachycardia Exam Location: [facility]. Interpretation Summary Good exercise tolerance (130% of [...] - 08/09/2022 Exercise Stress Echocardiogram Report Name: BALDO VIVAR JR. Study Date: 301:12 PMBP: 118/82 mmHg Patient Location: [id number] HR: 58 : 1980 Height: 178 cm Account: [id number] Age: 42 yrs Weight: 106 kg Gender: Male BSA: 2.2 m2 Ordering Physician: SANDRA GOMEZ Referring Physician: SANDRA GOMEZ Performed By: Jane Nunes RDCS Reason For Study: Ventricular tachycardia Exam Location: [facility]. Interpretation Summary Good exercise tolerance (130% of [...] max franco: 67.3 cm/sec MV A max farnco: 48.2 cm/sec MV E/A: 1.4 MV dec [...] Dyskinetic 3-5moderate 5 - 6-14large Aneurysmal 15-16diffuse Sandra Gomez MD ECHO ORDERABLES documented in this encounter Visit Diagnoses Diagnosis VT (ventricular tachycardia) Paroxysmal ventricular tachycardia documented in this encounter Administered Medications Inactive Administered Medications - up to 3 most recent administrations Medication Order MAR Action Action Date Dose Rate Site perflutren lipid microspheres (Definity) injection 1.5 mL 1.5 mL, Intravenous, ONCE PRN, 1 dose, Starting on Mon08/09/22 at 1404, Until Mon08/09/22 at 1345, Other, for enhancement of sub-optimal echo images, Echo Lab (Intra-Procedure), Routine Given 08/09/2022 1:45 PM EST 1.5 mLs documented in this encounter Care Teams Freight Agent Relationship Specialty Start Date End Date Terrance Alves MD [address] [place] [address] PCP - General Internal Medicine 01/12/18 documented as of this encounter
--- OUTSIDE RECORDS SUMMARY | 2024-03-26 16:32 | XMS_ITS | Encounter Summary ---
[place] [address] Care Team Providers Care Endorsement Clerk Name Role Phone Terrance Alves MD Primary Care Provider [phone] Encounter Details Date Type Department Care Team (Latest Contact Info) Description 06/10/2022 9:30 AM EST Clinical Support [place] [phone] Toxic effect of venom of bees, accidental [...] Sign Reading Time Taken Comments Blood Pressure 114/76 06/10/2022 9:18 AM EST Pulse 70 06/10/2022 9:18 AM EST Temperature - - Respiratory Rate - - Oxygen Saturation 98% 06/10/2022 9:18 AM EST Inhaled Oxygen Concentration - - Weight - - Height - - Body Mass Index - - documented in this encounter Progress Notes * Haylee Sosa RN - 06/10/2022 9:30 AM EST Patient: Baldo Carty . 1980 [id number] Documentation of screening pre-immunotherapy questionnaire responses See [...] the past 24 hrs: Pulse BP SpO2 06/10/22 0918 70 114/76 98 % Injections given: Building (STOCK VIALS) Extract: Mixed Vespid Dilution: 30mcg/mL Dose: 0.5mL Site: right upper arm subcutaneous upper Rxn: none EXP: 06/24/21 LOT #: [id number] MODEL MAKER FIREARMS:HollisterStier Extract: Wasp Dilution 10mcg/mL Dose: 0.5mL Site: left upper arm subcutaneous upper Rxn: < palm EXP: 06/24/22 LOT #: [id number] MODEL MAKER FIREARMS:JasonisterStier Extract: Honeybee Dilution: 10mcg/mL Dose: 0.5mL Site: left upper arm subcutaneous lower Rxn: < palm EXP: 06/24/22 LOT#: [id number] MODEL MAKER FIREARMS:ShopYourWorldisterStier Patient was observed here in the waiting area for 30 minutes. No adverse side effects were noted. Patient ambulated from clinic in stable condition. documented in this encounter Plan of Treatment Not on file documented as of this encounter Visit Diagnoses Diagnosis Toxic effect of venom of bees, accidental (unintentional), initial encounter documented in this encounter Care Teams Endorsement Clerk Relationship Specialty Start Date End Date Terrance Alves MD [address] [place] [address] PCP - General Internal Medicine 01/12/18 documented as of this encounter
--- OUTSIDE RECORDS SUMMARY | 2024-03-26 16:32 | XMS_ITS | Encounter Summary ---
[place] [address] Care Team Providers Care Clinical Transplant Coordinator Name Role Phone Terrance Alves MD Primary Care Provider [phone] Encounter Details Date Type Department Care Team (Latest Contact Info) Description 07/11/2022 3:45 PM EST Clinical [place] [phone] Toxic effect of venom of bees, accidental [...] Sign Reading Time Taken Comments Blood Pressure 126/82 07/11/2022 3:32 PM EST Pulse 93 07/11/2022 3:32 PM EST Temperature - - Respiratory Rate - - Oxygen Saturation 96% 07/11/2022 3:32 PM EST Inhaled Oxygen Concentration - - Weight - - Height - - Body Mass Index - - documented in this encounter Progress Notes * Evie Lloyd, RN - 07/11/2022 3:45 PM EST Patient: Baldo Carty Jr. 1980 [id number] Documentation of screening pre-immunotherapy questionnaire responses See [...] Adjustments: Dose adjustment needed prior to injection: [na] If yes, please fill out the following: [...] the past 24 hrs: Pulse BP SpO2 07/11/22 1532 93 126/82 96 % Injections given: Building (STOCK VIALS) Extract: Mixed Vespid Dilution: 300mcg/mL Dose: 0.3mL Site: right upper arm subcutaneous upper Rxn: Left without check EXP: 06/03/23 LOT #: [id number] HAND TILE MAKER:Catatier Extract: Wasp Dilution 100mcg/mL Dose: 0.3mL Site: right upper arm subcutaneous upper Rxn: Left without check EXP: 06/03/23 LOT #: [id number] HAND TILE MAKER:Catatier Extract: Honeybee Dilution: 100mcg/mL Dose: 0.3mL Site: right upper arm subcutaneous lower Rxn: left without check EXP: 05/23/23 LOT#: [id number] HAND TILE MAKER:Nesha Patient was observed here in the waiting area for 30 minutes. No adverse side effects were noted. Patient ambulated from clinic in stable condition. documented in this encounter Plan of Treatment Not on file documented as of this encounter Visit Diagnoses Diagnosis Toxic effect of venom of bees, accidental (unintentional), initial encounter documented in this encounter Care Teams Clinical Transplant Coordinator Relationship Specialty Start Date End Date Terrance Alves MD [address] [place] [address] PCP - General Internal Medicine 01/12/18 documented as of this encounter
--- OUTSIDE RECORDS SUMMARY | 2024-03-26 16:32 | XMS_ITS | Encounter Summary ---
[place] [address] Care Team Providers Care Formula Clerk Name Role Phone Terrance Alves MD Primary Care Provider [phone] Encounter Details Date Type Department Care Team (Latest Contact Info) Description 09/02/2022 Travel Social History Tobacco Use Types Packs/Day [...] on filedocumented in this encounter Care Teams Formula Clerk Relationship Specialty Start Date End Date Terrance Alves MD [address] [place] [address] PCP - General Internal Medicine 01/12/18 documented as of this encounter
--- OUTSIDE RECORDS SUMMARY | 2024-03-26 16:32 | XMS_ITS | Encounter Summary ---
Author Organization [facility] [place] [address] Care Team Providers Care Loan Broker Name Role Phone Terrance Alves MD Primary Care Provider [phone] Encounter Details Date Type Department Care Team (Late st Contact Info) Description 01/25/2023 [place] [address] Jayda Beckham MD [facility] [address] [facility] [facility] [address] Social History Tobacco Use Types Packs/Day Years Used Date Smoking Tobacco: Former Cigarettes Q uit: 2001 Smokeless Tobacco: Never Sex and Gender Information Value Date Recorded Sex Assigned at Not on file Gender Identity Not on file Sexual Orientation Not on file documented as of this encounter Progress Notes * Zoraida Duran LPN - 01/25/2023 1:13 PM EDT Allergy Shot Dose Adjustment Request Date of last dose: 12/12/22 Volume and concentration of last dose received: 0.5 ml Patient is on: [] Build [x] Maintenance (please indicate when patient reached maintenance) Reason for dose adjustment: [x] Gap in therapy (indicate weeks and days since last injection): 45 days [] LLR (indicate how many times reaction has occurred and last tolerated dose): [] Other MD Instructions: Continue 0.5 ml of Red vials. * Jayda Beckham MD - 01/25/2023 1:13 PM EDT Request responded to by other means. Jayda Beckham MD 01/30/2023 7:57 AM documented in this encounter Plan of Treatment Not on file documented as of this encounter Visit Diagnoses Not on filedocumented in this encounter Care Teams Loan Broker Relationship Specialty Start Date End Date Terrance Alves MD [address] [place] [address] PCP - General Internal Medicine 01/12/18 documented as of this encounter
--- OUTSIDE RECORDS SUMMARY | 2024-03-26 16:32 | XMS_ITS | Encounter Summary ---
[place] [address] Care Team Providers Care Programming Director Name Role Phone Terrance Alves MD Primary Care Provider [phone] Encounter Details Date Type Department Care Team (Latest Contact Info) Description 07/04/2022 Travel Social History Tobacco Use Types Packs/Day [...] on filedocumented in this encounter Care Teams Programming Director Relationship Specialty Start Date End Date Terrance Alves MD [address] [place] [address] PCP - General Internal Medicine 01/12/18 documented as of this encounter
--- OUTSIDE RECORDS SUMMARY | 2024-03-26 16:32 | XMS_ITS | Encounter Summary ---
[place] [address] Care Team Providers Care Lamp Tester And Inspector Name Role Phone Terrance Alves MD Primary Care Provider [phone] Reason for Referral * Consultation (Urgent) - Closed Specialty Diagnoses / Procedures Referred By Contac t Referred To Contact Cardiology Diagnoses History of ventricular tachycardia Cardiac arrhythmia, unspecified cardiac arrhythmia type HX VTACH, CARDIAC ARRHYTHMIA Suyapa Felton MD [address] [place] [address] [facility] [address] [place] [phone] Referral ID Status Reason Start Date Expiration Date V isits Requested Visits Authorized [id number] Closed Consult, Test & Treat 07/11/2022 07/11/2023 1 1 Encounter Details Date Type Department Care Team (Latest Contact Info) Description 07/11/2022 Transcribe Orders eD Incoming Referrals [phone] Suyapa Felton MD [address] [place], [place] [id number] History of ventricular tachycardia; Cardiac arrhythmia, unspecified cardiac arrhythmia type Social History Tobacco Use Types Packs/Day Years Used Date Smoking Tobacco: Former Cigarettes Q uit: 2001 Smokeless Tobacco: Never Sex and Gender Information Value Date Recorded Sex Assigned at Not on file Gender Identity Not on file Sexual Orientation Not on file documented as of this encounter Plan of Treatment Scheduled Referrals Name Type Priority Associated Diagnoses Orde r Schedule Referral to Cardiology Outpatient Referral Urgent History of ventricular tachycardia Cardiac arrhythmia, unspecified cardiac arrhythmia type Ordered: 07/11/2022 documented as of this encounter Visit Diagnoses Diagnosis History of ventricular tachycardia Personal history of other diseases of circulatory system Cardiac arrhythmia, unspecified cardiac arrhythmia type documented in this encounter Care Teams Lamp Tester And Inspector Relationship Specialty Start Date End Date Terrance Alves MD [address] [place] [address] PCP - General Internal Medicine 01/12/18 documented as of this encounter
--- OUTSIDE RECORDS SUMMARY | 2024-03-26 16:32 | XMS_ITS | Encounter Summary ---
[place] [address] Care Team Providers Care Senior Windows Engineer Name Role Phone Terrance Alves MD Primary Care Provider [phone] Encounter Details Date Type Department Care Team (Late st Contact Info) Description 07/11/2022 4:00 PM EST [place] [address] Jayda Beckham MD [facility] [address] [address] Tachycardia; Desensitization to allergens; Allergic reaction to insect sting, accidental or unintentional, subsequent encounter Social History Tobacco Use Types Packs/Day [...] Progress Notes * Jayda Beckham MD - 07/11/2022 4:00 PM EST CC: follow up HPI: Baldo Carty Jr. is a 42 y.o. 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 Last seen 03/08/22. Patient notes that he has been getting intermittent episodes of tachycardia which have been captured on his apple watch. One of them occurred while he was driving to work first thing in the morning on . I reviewed his shot records and the most recent injection would have been May 16. HisApple Watch captured tachycardia which is labeled as A. Fib by apple watch but looks more regular to me upon viewing it in the exam room. He saw his PCP who did an EKG in the office which was normal (per pt) and then ordered him for a 30-day monitor. He did feel lightheaded with this episode but typically does not when he gets the tachycardia. He has not been stung since his last visit with me and has no concerns about the allergy shots. 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 However he has had reactions to hornets when he was stung 3 times around 2017. About 20 to 30 minutes later developed [...] to help and the dizziness was prolonged. VIT: On February 04, 2022 he started venom immunotherapy with mixed vespid, wasp, honeybee. on 03/08/22 I saw him for episodes of tachycardia. Per my note: After 1st shot: Tightness in chest Not difficulty breathing but felt like someone sitting on him Heart rate was bananas First noticed this 1-2 hours later, had already left the clinic Lasted most of day 2d later went biking - heart rate was very high - 170 or more, 20 beats higher than usual, felt like a weight on his chest not catching breath as usual [place] like he was going to have a heart attack, this was unusual bc he mountain bikes regularly Next day biked again and was fine Took benadryl, shot was in AM, didn't realize it was not a long acting antihistamine No bad local reaction ?? Second dose got the same dose Still had the chest tightness - maybe in car on ride home, ~1.5h, noticeable but did not interfere with activity Lasted most of day HR was better that day but did not exercise or do anything strenuous 2d later went biking and was fine Took claritin the second time 07/04/22 got 0.2mL of 100mcg/300mcg doses. - eDH says he got 1mL of W and HB but I confirmed on the paper shot record used at the point of care that the dose he got was correct. Got injection today. States feeling less fatigued on shot day and avoiding strenous exertion. ASSESSMENT/PLAN: 42 y.o. male with insect sting allergy on VIT with intermittent tachycardia. Tachycardia: At this point I do not think the tachycardia episodes are related to his shots. They do not appear to be reliably correlating with his shots at this point. This most recent episode was a week from his last shot injection. Additionally his other episodes that we were evaluating were relatively delayed for a shot reaction. They could have been related more to the exercise rather than the shot itself and it could have been coincidence. We have checked his tryptase already and it was normal. Agree with PCP work up and heart monitor. We reviewed that some drugs can potentially worsen allergic reactions when they occur. I asked him to reach out to me once his heart monitor has been done so I can review the results. If he needs to have medication to control an arrhythmia and will need to keep inmind that some drugs could potentially increase the severity of an allergic reaction (specifically beta-blockers can do this). VIT: We will continue his allergy shots and reviewed that once he reaches the full dose he is consideredprotected from multiple stings. 95% of patients do not have anaphylaxis after they reach the the full dose and those who do have symptoms will typically have milder symptoms. If he were to experiencea sting and have recurrence of symptoms then we would go up on the dose so I want him to let me know if that were the case. Sting allergy: cont to carry epipen RTO 1 year prn problems sooner Jayda Beckham MD documented in this encounter Plan of Treatment Not on file documented as of this encounter Procedures Procedure Name Priority Date/Time Associated Diagnosis Comments ALLERGY SCAN 07/11/2022 12:00 AM EST documented in this encounter Results * SCAN DOC: ALLERGY (07/11/2022 12:00 AM EST) Narrative 07/11/2022 12:00 AM EST Ordered by an unspecified provider. Scanning Provider MEDIA MGR SCAN EXT O RDR/RSLT documented in this encounter Visit Diagnoses Diagnosis Tachycardia Tachycardia, unspecified Desensitization to allergens Need for desensitization to allergens Allergic reaction to insect sting, accidental or unintentional, subsequent encounter documented in this encounter Care Teams Senior Windows Engineer Relationship Specialty Start Date End Date Terrance Alves MD [address] [place] [address] PCP - General Internal Medicine 01/12/18 documented as of this encounter
--- OUTSIDE RECORDS SUMMARY | 2024-03-26 16:32 | XMS_ITS | Encounter Summary ---
[place] [address] Care Team Providers Care Dumpcart Driver Name Role Phone Terrance Alves MD Primary Care Provider [phone] Encounter Details Date Type Department Care Team (Latest Contact Info) Description 09/21/2022 Travel Social History Tobacco Use Types Packs/Day [...] on filedocumented in this encounter Care Teams Dumpcart Driver Relationship Specialty Start Date End Date Terrance Alves MD [address] [place] [address] PCP - General Internal Medicine 01/12/18 documented as of this encounter
--- OUTSIDE RECORDS SUMMARY | 2024-03-26 16:32 | XMS_ITS | Encounter Summary ---
[place] [address] Care Team Providers Care Weapons And Tactics Instructor Name Role Phone Terrance Alves MD Primary Care Provider [phone] Encounter Details Date Type Department Care Team (Latest Contact Info) Description 10/19/2022 9:30 AM EDT Clinical [place] [phone] Toxic effect of venom of bees, unintentional, [...] Sign Reading Time Taken Comments Blood Pressure 118/74 10/19/2022 9:25 AM EDT Pulse 64 10/19/2022 9:25 AM EDT Temperature - - Respiratory Rate - - Oxygen Saturation 99% 10/19/2022 9:25 AM EDT Inhaled Oxygen Concentration - - Weight - - Height - - Body Mass Index - - documented in this encounter Progress Notes * Natalya Rodriguez RN - 10/19/2022 9:30 AM EDT Patient: Baldo Carty Jr. 1980 [id number] Documentation of screening pre-immunotherapy questionnaire responses See scanned document of pre-immunotherapy screening questionnaire. To briefly summarize (place an X in the box that corresponds to patient's answers): [y] The patient answered no to all screening questions #1-6. [n] The patient answered yes to at least [...] available, verified as current and with patient. n Injections given per Dr. robin's orders. Patient Vitals for the past 24 hrs: Pulse BP SpO2 10/19/22 0925 64 118/74 99 % Injections given: Building (STOCK VIALS) Extract: Mixed Vespid Dilution: 300mcg/mL Dose: 1.0mL Site: right upper arm subcutaneous upper Rxn: < palm EXP: 09/16/23 LOT #: [id number] CELL MANAGER:JasonisterStier Extract: Wasp Dilution 100mcg/mL Dose: 1.0mL Site: left upper arm subcutaneous lower Rxn: < palm EXP: 09/15/22 LOT #: [id number] CELL MANAGER:JasonisterStier Extract: Honeybee Dilution: 100mcg/mL Dose: 1.0mL Site: right upper arm subcutaneous upper Rxn: < palm EXP: 07/28/23 LOT#: [id number] CELL MANAGER:HollJose Carlostier Patient was observed here in the waiting area for 30 minutes. No adverse side effects were noted. Patient ambulated from clinic in stable condition. documented in this encounter Plan of Treatment Not on file documented as of this encounter Visit Diagnoses Diagnosis Toxic effect of venom of bees, unintentional, initial encounter documented in this encounter Care Teams Weapons And Tactics Instructor Relationship Specialty Start Date End Date Terrance Alves MD [address] [place] [address] PCP - General Internal Medicine 01/12/18 documented as of this encounter
--- OUTSIDE RECORDS SUMMARY | 2024-03-26 16:32 | XMS_ITS | Encounter Summary ---
Author Organization [facility]ly [facility] [place] [address] Care Team Providers Care Safety And Skill Based Pay Manager Name Role Phone Terrance Alves MD Primary Care Provider [phone] Encounter Details Date Type Department Care Team (Latest Contact Info) Description 03/02/2023 4:00 PM EDT Clinical [place] [phone] Toxic effect of venom of bees, accidental (unintentional), initial encounter Social History Tobacco Use Types Packs/Day Years Used Date Smoking Tobacco: Former Cigarettes Q uit: 2001 Smokeless Tobacco: Never Sex and Gender Information Value Date Recorded Sex Assigned at Not on file Gender Identity Not on file Sexual Orientation Not on file documented as of this encounter Progress Notes * Evie Lloyd, RN - 03/02/2023 4:00 PM EDT Patient arrived to appointment 20 minutes late at 16:20. No injection given. documented in this encounter Plan of Treatment Not on file documented as of this encounter Visit Diagnoses Diagnosis Toxic effect of venom of bees, accidental (unintentional), initial encounter documented in this encounter Care Teams Safety And Skill Based Pay Manager Relationship Specialty Start Date End Date Terrance Alves MD [address] [place] [address] PCP - General Internal Medicine 01/12/18 documented as of this encounter
--- OUTSIDE RECORDS SUMMARY | 2024-03-26 16:32 | XMS_ITS | Encounter Summary ---
Author Organization [facility] Address [facility] [place] [address] Care Team Providers Care Line Cook Name Role Phone Terrance Alves MD Primary Care Provider [phone] Reason for Referral * Consultation (Routine) - Closed Specialty Diagnoses / Procedures Referred By Contact Referred To Contact Electrophysiology / Cardiology Diagnoses Sustained VT (ventricular tachycardia) Consideration of EPS/ablation/device? Episode of sustained monomorphic VT, history of syncope with prior negative work up. Exercise stress echo and cMRI overall unremarkable. Sandra Gomez MD [facility] [place] [address] [facility] [address] [place] [id number] Referral ID Status Reason Start Date Expiration Date V isits Requested Visits Authorized [id number] Closed Consult, Test & Treat 09/14/2022 09/14/2023 1 1 Encounter Details Date Type Department Care Team (Late st Contact Info) Description 09/14/2022 Orders [place] [address] [facility] [place] [address] Sustained VT (ventricular tachycardia) Social History Tobacco Use Types Packs/Day Years Used Date Smoking Tobacco: Former Cigarettes Q uit: 2001 Smokeless Tobacco: Never Sex and Gender Information Value Date Recorded Sex Assigned at Not on file Gender Identity Not on file Sexual Orientation Not on file documented as of this encounter Plan of Treatment Scheduled Referrals Name Type Priority Associated Diagnoses Order Schedule Referral to Cardiac Electrophysiology Outpatient Referral Routine Sustained VT (ventricular tachycardia) Ordered: 09/14/2022 documented as of this encounter Visit Diagnoses Diagnosis Sustained VT (ventricular tachycardia) Paroxysmal ventricular tachycardia documented in this encounter Care Teams Line Cook Relationship Specialty Start Date End Date Terrance Alves MD [address] [place] [address] PCP - General Internal Medicine 01/12/18 documented as of this encounter
--- OUTSIDE RECORDS SUMMARY | 2024-03-26 16:32 | XMS_ITS | Encounter Summary ---
[place] [address] Care Team Providers Care Naval Marine Engineer Name Role Phone Terrance Alves MD Primary Care Provider [phone] Encounter Details Date Type Department Care Team (Latest Contact Info) Description 09/12/2022 Travel Social History Tobacco Use Types Packs/Day [...] on filedocumented in this encounter Care Teams Naval Marine Engineer Relationship Specialty Start Date End Date Terrance Alves MD [address] [place] [address] PCP - General Internal Medicine 01/12/18 documented as of this encounter
--- OUTSIDE RECORDS SUMMARY | 2024-03-26 16:32 | XMS_ITS | Encounter Summary ---
[place] [address] Care Team Providers Care Dialysis Biomed Technician Name Role Phone Terrance Alves MD Primary Care Provider [phone] Encounter Details Date Type Department Care Team (Latest Contact Info) Description 08/01/2022 9:15 AM EST Clinical [place] [phone] Toxic effect of venom of bees, accidental [...] Sign Reading Time Taken Comments Blood Pressure 102/72 08/01/2022 9:33 AM EST Pulse 72 08/01/2022 9:33 AM EST Temperature - - Respiratory Rate - - Oxygen Saturation 99% 08/01/2022 9:33 AM EST Inhaled Oxygen Concentration - - Weight - - Height - - Body Mass Index - - documented in this encounter Progress Notes * Katy Moreno RN - 08/01/2022 9:15 AM EST Patient: Baldo Carty . 1980 [id number] Documentation of screening pre-immunotherapy questionnaire responses See [...] the past 24 hrs: Pulse BP SpO2 08/01/22 0933 72 102/72 99 % Injections given: Building (STOCK VIALS) Extract: Mixed Vespid Dilution: 300mcg/mL Dose: 0.8 mL Site: left upper arm subcutaneous Rxn: < palm EXP: 07-13-23 LOT #: [id number] SENIOR SYSTEMS ARCHITECT:JasonisterStier Extract: Wasp Dilution 100mcg/mL Dose: 0.8 mL Site: right upper arm subcutaneous upper Rxn: < palm EXP: 07-28-23 LOT #: [id number] SENIOR SYSTEMS ARCHITECT:JasonisterStier Extract: Honeybee Dilution: 100mcg/mL Dose: 0.8 mL Site: right upper arm subcutaneous lower Rxn: < palm EXP: 07-13-23 LOT#: [id number] SENIOR SYSTEMS ARCHITECT:Jamba!isterStier Patient was observed here in the waiting area for 30 minutes. No adverse side effects were noted. Patient ambulated from clinic in stable condition. documented in this encounter Plan of Treatment Not on file documented as of this encounter Visit Diagnoses Diagnosis Toxic effect of venom of bees, accidental (unintentional), initial encounter documented in this encounter Care Teams Dialysis Biomed Technician Relationship Specialty Start Date End Date Terrance Alves MD [address] [place] [address] PCP - General Internal Medicine 01/12/18 documented as of this encounter
--- OUTSIDE RECORDS SUMMARY | 2024-03-26 16:32 | XMS_ITS | Encounter Summary ---
[place] [address] Care Team Providers Care Chemical Operations Specialist Name Role Phone Terrance Alves MD Primary Care Provider [phone] Encounter Details Date Type Department Care Team (Latest Contact Info) Description 05/26/2022 Travel Social History Tobacco Use Types Packs/Day [...] on filedocumented in this encounter Care Teams Chemical Operations Specialist Relationship Specialty Start Date End Date Terrance Alves MD [address] [place] [address] PCP - General Internal Medicine 01/12/18 documented as of this encounter
--- OUTSIDE RECORDS SUMMARY | 2024-03-26 16:32 | XMS_ITS | Encounter Summary ---
Author Organization [facility] [place] [address] Care Team Providers Care Exhaust And Muffler Fitter Name Role Phone Terrance Alves MD Primary Care Provider [phone] Encounter Details Date Type Department Care Team (Latest Contact Info) Description 09/21/2022 9:30 AM EDT Clinical [place] [phone] Toxic effect of venom of bees, accidental [...] Sign Reading Time Taken Comments Blood Pressure 114/78 09/21/2022 9:33 AM EDT Pulse 65 09/21/2022 9:33 AM EDT Temperature - - Respiratory Rate - - Oxygen Saturation 99% 09/21/2022 9:33 AM EDT Inhaled Oxygen Concentration - - Weight - - Height - - Body Mass Index - - documented in this encounter Progress Notes * Tacos Amaro - 09/21/2022 9:30 AM EDT Patient: Baldo Carty Jr. 1980 [id number] Documentation of screening pre-immunotherapy questionnaire responses See [...] Adjustments: Dose adjustment needed prior to injection: [] If yes, please fill out the following: Reason for dose adjustment: New dose and/or change in build: Documentation of Injection: Baldo Carty Jr. has come into the Allergy Clinic for immunotherapy injections. Antihistamine taken as directed. Patient has required Epipen available, verified as current and with patient. Injections given per Dr. Beckham's orders. Patient Vitals for the past 24 hrs: Pulse BP SpO2 09/21/22 0933 65 114/78 99 % Injections given: Maintenance (STOCK VIALS) Extract: Mixed Vespid Dilution: 300mcg/mL Dose: 1.0mL Site: left upper arm subcutaneous upper Rxn: < palm EXP: 09/16/2023 LOT #: [id number] HORTICULTURAL MANAGER:JasonisterStier Extract: Wasp Dilution 100mcg/mL Dose: 1.0mL Site: right upper arm subcutaneous upper Rxn: < palm EXP: 09/01/2023 LOT #: [id number] HORTICULTURAL MANAGER:JasonisterStier Extract: Honeybee Dilution: 100mcg/mL Dose: 1.0mL Site: right upper arm subcutaneous lower Rxn: < palm EXP: 07/28/2023 LOT#: [id number] HORTICULTURAL MANAGER:HollisterStier Patient was observed here in the waiting area for 30 minutes. No adverse side effects were noted. Patient ambulated from clinic in stable condition. documented in this encounter Plan of Treatment Not on file documented as of this encounter Visit Diagnoses Diagnosis Toxic effect of venom of bees, accidental (unintentional), initial encounter documented in this encounter Care Teams Exhaust And Muffler Fitter Relationship Specialty Start Date End Date Terrance Alves MD [address] [place] [address] PCP - General Internal Medicine 01/12/18 documented as of this encounter
--- OUTSIDE RECORDS SUMMARY | 2024-03-26 16:32 | XMS_ITS | Encounter Summary ---
[place] [address] Care Team Providers Care Extract Mixer Name Role Phone Terrance Alves MD Primary Care Provider [phone] Encounter Details Date Type Department Care Team (Latest Contact Info) Description 05/26/2022 9:45 AM EST Clinical [place] [phone] Toxic effect of venom of bees, accidental [...] Sign Reading Time Taken Comments Blood Pressure 116/72 05/26/2022 9:26 AM EST Pulse 76 05/26/2022 9:26 AM EST Temperature - - Respiratory Rate - - Oxygen Saturation 97% 05/26/2022 9:26 AM EST Inhaled Oxygen Concentration - - Weight - - Height - - Body Mass Index - - documented in this encounter Progress Notes * Sharee Toney RN - 05/26/2022 9:45 AM EST Patient: Baldo Carty . 1980 [id number] Documentation of screening pre-immunotherapy questionnaire responses See [...] the past 24 hrs: Pulse BP SpO2 05/26/22 0926 76 116/72 97 % Injections given: Building (STOCK VIALS) Extract: Mixed Vespid Dilution: 3mcg/mL Dose: 0.5mL Site: right upper arm subcutaneous upper Rxn: < palm EXP: 06/03/22 LOT #: [id number] ANALYTICS DEVELOPER:JasonisterStier Extract: Wasp Dilution 1mcg/mL Dose: 0.5mL Site: left upper arm subcutaneous upper Rxn: < palm EXP: 06/03/22 LOT #: [id number] ANALYTICS DEVELOPER:JasonisterStier Extract: Honeybee Dilution: 1mcg/mL Dose: 0.5mL Site: left upper arm subcutaneous lower Rxn: < palm EXP: 06/03/22 LOT#: [id number] ANALYTICS DEVELOPER:Buddha Softwaretier Patient was observed here in the waiting area for 30 minutes. No adverse side effects were noted. Patient ambulated from clinic in stable condition. documented in this encounter Plan of Treatment Not on file documented as of this encounter Visit Diagnoses Diagnosis Toxic effect of venom of bees, accidental (unintentional), initial encounter documented in this encounter Care Teams Extract Mixer Relationship Specialty Start Date End Date Terrance Alves MD [address] [place] [address] PCP - General Internal Medicine 01/12/18 documented as of this encounter
--- OUTSIDE RECORDS SUMMARY | 2024-03-26 16:32 | XMS_ITS | Encounter Summary ---
[place] [address] Care Team Providers Care Industrial Green Systems Designer Name Role Phone Terrance Alves MD Primary Care Provider [phone] Encounter Details Date Type Department Care Team (Latest Contact Info) Description 12/12/2022 9:45 AM EDT Clinical [place] [phone] Toxic effect of venom of bees, unintentional, [...] Sign Reading Time Taken Comments Blood Pressure 118/68 12/12/2022 9:45 AM EDT Pulse 88 12/12/2022 9:45 AM EDT Temperature - - Respiratory Rate - - Oxygen Saturation 100% 12/12/2022 9:45 AM EDT Inhaled Oxygen Concentration - - Weight - - Height - - Body Mass Index - - documented in this encounter Patient Instructions * Patient Instructions* Natalya Rodriguez RN - 12/12/2022 9:45 AM EDT documented in this encounter Progress Notes * Natalya Rodriguez RN - 12/12/2022 9:45 AM EDT Patient: Baldo Carty Jr. 1980 [id number] Documentation of screening pre-immunotherapy questionnaire responses See [...] in build: Documentation of Injection: Baldo Carty has come into the Allergy Clinic for immunotherapy injections. Antihistamine taken as directed. Patient has required Epipen available, verified as current and with patient. y Injections given per Dr. Beckham's orders. Patient Vitals for the past 24 hrs: Pulse BP SpO2 12/12/22 0945 88 118/68 100 % Injections given: Maintenance (STOCK VIALS) Extract: Mixed Vespid Dilution: 300mcg/mL Dose: 1.0mL Site: right upper arm subcutaneous upper Rxn: < palm EXP: 11/04/23 LOT #: [id number] ELECTION ASSISTANT:Catatier Extract: Wasp Dilution 100mcg/mL Dose: 1.0mL Site: left upper arm subcutaneous upper Rxn: < palm EXP: 12/01/23 LOT #: [id number] ELECTION ASSISTANT:JasonisterStier Extract: Honeybee Dilution: 100mcg/mL Dose: 1.0mL Site: left upper arm subcutaneous upper Rxn: < palm EXP: 11/19/23 LOT#: [id number] ELECTION ASSISTANT:[employer] SciencesRosalia Patient was observed here in the waiting area for 30 minutes. No adverse side effects were noted. Patient ambulated from clinic in stable condition. documented in this encounter Plan of Treatment Not on file documented as of this encounter Visit Diagnoses Diagnosis Toxic effect of venom of bees, unintentional, initial encounter documented in this encounter Care Teams Industrial Green Systems Designer Relationship Specialty Start Date End Date Terrance Alves MD [address] [place] [address] PCP - General Internal Medicine 01/12/18 documented as of this encounter
--- OUTSIDE RECORDS SUMMARY | 2024-03-26 16:32 | XMS_ITS | Encounter Summary ---
[place] [address] Care Team Providers Care Commercial Airplane Pilot Name Role Phone Terrance Alves MD Primary Care Provider [phone] Encounter Details Date Type Department Care Team (Latest Contact Info) Description 12/12/2022 Travel Social History Tobacco Use Types Packs/Day [...] on filedocumented in this encounter Care Teams Commercial Airplane Pilot Relationship Specialty Start Date End Date Terrance Alves MD [address] [place] [address] PCP - General Internal Medicine 01/12/18 documented as of this encounter
--- OUTSIDE RECORDS SUMMARY | 2024-03-26 16:32 | XMS_ITS | Encounter Summary ---
Author Organization [facility] [place] [address] Care Team Providers Care Concrete Block Molder Name Role Phone Terrance Alves MD Primary Care Provider [phone] Reason for Visit * Reason Onset Date Comments Medication Refill 01/24/2023 Encounter Details Date Type Department Care Team (Late st Contact Info) Description 01/24/2023 [place] [address] Jayda Beckham MD [facility] [address] [facility] [address] Toxic effect of venom of bees, unintentional, initial encounter Social History Tobacco Use Types Packs/Day Years Used Date Smoking Tobacco: Former Cigarettes Q uit: 2001 Smokeless Tobacco: Never Sex and Gender Information Value Date Recorded Sex Assigned at Not on file Gender Identity Not on file Sexual Orientation Not on file documented as of this encounter Miscellaneous Notes * Telephone Encounter - Tacos Amaro - 01/25/2023 7:16 AM EDT [place] 07/11/2022. Needs EpiPen for VIT. documented in this encounter Plan of Treatment Not on file documented as of this encounter Visit Diagnoses Diagnosis Toxic effect of venom of bees, unintentional, initial encounter documented in this encounter Care Teams Concrete Block Molder Relationship Specialty Start Date End Date Terrance Alves MD [address] [place], [place] [address] PCP - General Internal Medicine 01/12/18 documented as of this encounter
--- OUTSIDE RECORDS SUMMARY | 2024-03-26 16:32 | XMS_ITS | Encounter Summary ---
[place] [address] Care Team Providers Care Coordinating Producer Name Role Phone Terrance Alves MD Primary Care Provider [phone] Encounter Details Date Type Department Care Team (Latest Contact Info) Description 07/18/2022 10:15 AM EST Clinical [place] [id number] Toxic effect of venom of bees, accidental [...] Sign Reading Time Taken Comments Blood Pressure 110/72 07/18/2022 10:27 AM EST Pulse 77 07/18/2022 10:27 AM EST Temperature - - Respiratory Rate - - Oxygen Saturation 97% 07/18/2022 10:27 AM EST Inhaled Oxygen Concentration - - Weight - - Height - - Body Mass Index - - documented in this encounter Progress Notes * Katy Moreno RN - 07/18/2022 10:15 AM EST Patient: Baldo Carty . 1980 [id number] Documentation of screening pre-immunotherapy questionnaire responses See [...] the past 24 hrs: Pulse BP SpO2 07/18/22 1027 77 110/72 97 % Injections given: Building (STOCK VIALS) Extract: Mixed Vespid Dilution: 300mcg/mL Dose: 0.4mL Site: left upper arm subcutaneous Rxn: < palm EXP: 06-27-23 LOT #: [id number] HEATING UNIT MECHANIC:JasonisterStier Extract: Wasp Dilution 100mcg/mL Dose: 0.4mL Site: right upper arm subcutaneous upper Rxn: < palm EXP: 06-27-23 LOT #: [id number] HEATING UNIT MECHANIC:JasonisterStier Extract: Honeybee Dilution: 100mcg/mL Dose: 0.4mL Site: right upper arm subcutaneous lower Rxn: < palm EXP: 06-27-23 LOT#: [id number] HEATING UNIT MECHANIC:911 PetsisterStier Patient was observed here in the waiting area for 30 minutes. No adverse side effects were noted. Patient ambulated from clinic in stable condition. documented in this encounter Plan of Treatment Not on file documented as of this encounter Visit Diagnoses Diagnosis Toxic effect of venom of bees, accidental (unintentional), initial encounter documented in this encounter Care Teams Coordinating Producer Relationship Specialty Start Date End Date Terrance Alves MD [address] [place] [address] PCP - General Internal Medicine 01/12/18 documented as of this encounter
--- OUTSIDE RECORDS SUMMARY | 2024-03-26 16:32 | XMS_ITS | Encounter Summary ---
[place] [address] Care Team Providers Care Binding Stitcher Name Role Phone Terrance Alves MD Primary Care Provider [phone] Encounter Details Date Type Department Care Team (Latest Contact Info) Description 10/07/2022 Travel Social History Tobacco Use Types Packs/Day [...] on filedocumented in this encounter Care Teams Binding Stitcher Relationship Specialty Start Date End Date Terrance Alves MD [address] [place] [address] PCP - General Internal Medicine 01/12/18 documented as of this encounter
--- OUTSIDE RECORDS SUMMARY | 2024-03-26 16:32 | XMS_ITS | Encounter Summary ---
[place] [address] Care Team Providers Care Carbide Operator Name Role Phone Terrance Alves MD Primary Care Provider [phone] Encounter Details Date Type Department Care Team (Latest Contact Info) Description 08/09/2022 Travel Social History Tobacco Use Types Packs/Day [...] on filedocumented in this encounter Care Teams Carbide Operator Relationship Specialty Start Date End Date Terrance Alves MD [address] [place] [address] PCP - General Internal Medicine 01/12/18 documented as of this encounter
--- OUTSIDE RECORDS SUMMARY | 2024-03-26 16:32 | XMS_ITS | Encounter Summary ---
[place] [address] Care Team Providers Care Senior Specialist Name Role Phone Terrance Alves MD Primary Care Provider [phone] Encounter Details Date Type Department Care Team (Latest Contact Info) Description 08/08/2022 9:30 AM EST Clinical [place] [id number] Toxic effect of venom of bees, accidental [...] Sign Reading Time Taken Comments Blood Pressure 120/80 08/08/2022 9:18 AM EST Pulse 73 08/08/2022 9:18 AM EST Temperature - - Respiratory Rate - - Oxygen Saturation 100% 08/08/2022 9:18 AM EST Inhaled Oxygen Concentration - - Weight - - Height - - Body Mass Index - - documented in this encounter Progress Notes * Katy Moreno RN - 08/08/2022 9:30 AM EST Patient: Baldo Campbellallen Scott. 1980 [id number] Documentation of screening pre-immunotherapy questionnaire responses See [...] the past 24 hrs: Pulse BP SpO2 08/08/22 0918 73 120/80 100 % Injections given: Building (STOCK VIALS) Extract: Mixed Vespid Dilution: 300mcg/mL Dose: 1.0mL Site: right upper arm subcutaneous Rxn: < palm EXP: 07-28-22 LOT #: [id number] BINDERY OPERATOR:JasonisterStier Extract: Wasp Dilution 100mcg/mL Dose: 1.0mL Site: left upper arm subcutaneous upper Rxn: < palm EXP: 07-28-23 LOT #: [id number] BINDERY OPERATOR:JasonisterStier Extract: Honeybee Dilution: 100mcg/mL Dose: 1.0mL Site: left upper arm subcutaneous lower Rxn: < palm EXP: 06-03-23 LOT#: [id number] BINDERY OPERATOR:The Start ProjectisterStier Patient was observed here in the waiting area for 30 minutes. No adverse side effects were noted. Patient ambulated from clinic in stable condition. documented in this encounter Plan of Treatment Not on file documented as of this encounter Visit Diagnoses Diagnosis Toxic effect of venom of bees, accidental (unintentional), initial encounter documented in this encounter Care Teams Senior Specialist Relationship Specialty Start Date End Date Terrance Alves MD [address] [place] [address] PCP - General Internal Medicine 01/12/18 documented as of this encounter
--- OUTSIDE RECORDS SUMMARY | 2024-03-26 16:32 | XMS_ITS | Encounter Summary ---
[place] [address] Care Team Providers Care Gas And Oil Checker Name Role Phone Terrance Alves MD Primary Care Provider [phone] Encounter Details Date Type Department Care Team (Latest Contact Info) Description 05/16/2022 9:15 AM EST Clinical [place] [phone] Toxic effect of venom of bees, accidental [...] Sign Reading Time Taken Comments Blood Pressure 110/74 05/16/2022 9:38 AM EST Pulse 72 05/16/2022 9:38 AM EST Temperature - - Respiratory Rate - - Oxygen Saturation 98% 05/16/2022 9:38 AM EST Inhaled Oxygen Concentration - - Weight - - Height - - Body Mass Index - - documented in this encounter Progress Notes * Haylee Sosa RN - 05/16/2022 9:15 AM EST Patient: Baldo Carty . 1980 [id number] Documentation of screening pre-immunotherapy questionnaire responses See [...] the past 24 hrs: Pulse BP SpO2 05/16/22 0938 72 110/74 98 % Injections given: Building (STOCK VIALS) Extract: Mixed Vespid Dilution: 3mcg/mL Dose: 0.1mL Site: left upper arm subcutaneous upper Rxn: < palm EXP: 06/03/22 LOT #: [id number] DINING ROOM SUPERVISOR:JasonisterStier Extract: Wasp Dilution 1mcg/mL Dose: 0.1mL Site: right upper arm subcutaneous upper Rxn: < palm EXP: 05/27/22 LOT #: [id number] DINING ROOM SUPERVISOR:JasonisterStier Extract: Honeybee Dilution: 1mcg/mL Dose: 0.1mL Site: right upper arm subcutaneous lower Rxn: < palm EXP: 06/03/22 LOT#: [id number] DINING ROOM SUPERVISOR:Mozidotier Patient was observed here in the waiting area for 30 minutes. No adverse side effects were noted. Patient ambulated from clinic in stable condition. documented in this encounter Plan of Treatment Not on file documented as of this encounter Visit Diagnoses Diagnosis Toxic effect of venom of bees, accidental (unintentional), initial encounter documented in this encounter Care Teams Gas And Oil Checker Relationship Specialty Start Date End Date Terrance Alves MD [address] [place] [address] PCP - General Internal Medicine 01/12/18 documented as of this encounter
--- OUTSIDE RECORDS SUMMARY | 2024-03-26 16:32 | XMS_ITS | Encounter Summary ---
[place] [address] Care Team Providers Care Research Laboratory Specialist Name Role Phone Terrance Alves MD Primary Care Provider [phone] Encounter Details Date Type Department Care Team (Latest Contact Info) Description 07/25/2022 9:30 AM EST Clinical [place] [id number] Toxic effect of venom of bees, accidental [...] Sign Reading Time Taken Comments Blood Pressure 124/82 07/25/2022 9:30 AM EST Pulse 68 07/25/2022 9:30 AM EST Temperature - - Respiratory Rate - - Oxygen Saturation 97% 07/25/2022 9:30 AM EST Inhaled Oxygen Concentration - - Weight - - Height - - Body Mass Index - - documented in this encounter Progress Notes * Katy Moreno RN - 07/25/2022 9:30 AM EST Patient: Baldo Carty . 1980 [id number] Documentation of screening pre-immunotherapy questionnaire responses See scanned document of pre-immunotherapy screening questionnaire. To briefly summarize (place an X in the box that corresponds to patient's answers): [] The patient answered no to all screening questions #1-6. [x] The patient answered yes to at least one of the screening questions (document findings below). Answers documented on questionnaire: Pt has started on metoprolol for new dx of V-tach. OK per Dr. Beckham. Documentation of Dose Adjustments: Dose adjustment needed [...] the past 24 hrs: Pulse BP SpO2 07/25/22 0930 68 124/82 97 % Injections given: Building (STOCK VIALS) Extract: Mixed Vespid Dilution: 300mcg/mL Dose: 0.5mL Site: right upper arm subcutaneous Rxn: < palm EXP: 06-27-23 LOT #: [id number] TELEPHONE ADVICE NURSE:JasonisterStier Extract: Wasp Dilution 100mcg/mL Dose: 0.5mL Site: left upper arm subcutaneous upper Rxn: < palm EXP: 06-27-23 LOT #: [id number] TELEPHONE ADVICE NURSE:JasonisterStier Extract: Honeybee Dilution: 100mcg/mL Dose: 0.5mL Site: left upper arm subcutaneous lower Rxn: < palm EXP: 06-03-23 LOT#: [id number] TELEPHONE ADVICE NURSE:InfraSearchtier Patient was observed here in the waiting area for 30 minutes. No adverse side effects were noted. Patient ambulated from clinic in stable condition. documented in this encounter Plan of Treatment Not on file documented as of this encounter Visit Diagnoses Diagnosis Toxic effect of venom of bees, accidental (unintentional), initial encounter documented in this encounter Care Teams Research Laboratory Specialist Relationship Specialty Start Date End Date Terrance Alves MD [address] [place] [address] PCP - General Internal Medicine 01/12/18 documented as of this encounter
--- OUTSIDE RECORDS SUMMARY | 2024-03-26 16:32 | XMS_ITS | Encounter Summary ---
[place] [address] Care Team Providers Care Traction Power Engineer Name Role Phone Terrance Alves MD Primary Care Provider [phone] Encounter Details Date Type Department Care Team (Latest Contact Info) Description 03/02/2023 Travel Social History Tobacco Use Types Packs/Day [...] on filedocumented in this encounter Care Teams Traction Power Engineer Relationship Specialty Start Date End Date Terrance Alves MD [address] [place] [address] PCP - General Internal Medicine 01/12/18 documented as of this encounter
--- OUTSIDE RECORDS SUMMARY | 2024-03-26 16:33 | XMS_ITS | Encounter Summary ---
[place] [address] Care Team Providers Care Analytics Manager Name Role Phone Terrance Alves MD Primary Care Provider [phone] Reason for Referral * Allergy Testing (Urgent) - Closed Specialty Diagnoses / Procedures Referred By Contac t Referred To Contact Allergy Diagnoses Personal history of anaphylaxis Terrance Alves MD [address] [place] [address] [facility] [address] [place] [address] Referral ID Status Reason Start Date Expiration Date V isits Requested Visits Authorized [id number] Closed Consult, Test & Treat PCP Updated and/or Approved 12/22/2021 12/22/2022 12 12 Encounter Details Date Type Department Care Team (Latest Contact Info) Description 12/22/2021 Transcribe Orders eDH Incoming Referrals [phone] Terrance Alves MD [address] [place], [place] [id number] Personal history of anaphylaxis Social History Tobacco Use Types Packs/Day Years Used Date Smoking Tobacco: Former Cigarettes Q uit: 2001 Smokeless Tobacco: Never Sex and Gender Information Value Date Recorded Sex Assigned at Not on file Gender Identity Not on file Sexual Orientation Not on file documented as of this encounter Plan of Treatment Scheduled Referrals Name Type Priority Associated Diagnoses Orde r Schedule Referral to Allergy Outpatient Referral STAT Personal history of anaphylaxis Ordered: 12/22/2021 documented as of this encounter Visit Diagnoses Diagnosis Personal history of anaphylaxis documented in this encounter Care Teams Analytics Manager Relationship Specialty Start Date End Date Terrance Alves MD [address] [place] [address] PCP - General Internal Medicine 01/12/18 documented as of this encounter
--- OUTSIDE RECORDS SUMMARY | 2024-03-26 16:33 | XMS_ITS | Encounter Summary ---
[place] [address] Care Team Providers Care Teaching Supervisor Name Role Phone Terrance Alves MD Primary Care Provider [phone] Reason for Referral * Diagnostic Test (Routine) - Closed Specialty Diagnoses / Procedures Referred By Contac t Referred To Contact Radiology Diagnoses Syncope, unspecified syncope type Procedures NM Exercise Stress Myocardial Perfusion Baldo Wells MD [facility] [place] [address] [place] [address] Referral ID Status Reason Start Date Expiration Date V isits Requested Visits Authorized [id number] Closed Specialty Service Requested 01/29/2018 04/29/2018 4 4 * Diagnostic Test (Routine) - Specialty Diagnoses / Procedures Referred By Contac t Referred To Contact Radiology Diagnoses Syncope, unspecified syncope type Procedures NM Exercise Stress CT Component Baldo Wells MD [facility] [place] [address] [place] [address] Referral ID Status Reason Start Date Expiration Date Visits Requested Visits Authorized [id number] Specialty Service Requested 01/29/2018 04/29/2018 4 4 Reason for Visit * Reason Comments Loss of Consciousness * Consultation (Routine) - Closed Specialty Diagnoses / Procedures Referred By Contac t Referred To Contact Cardiology Diagnoses SYNCOPE AFTER HORNET STINGS OnesimoValery bustillo APRN [address] [place] [address] [facility] [address] [place] [phone] Referral ID Status Reason Start Date Expiration Date V isits Requested Visits Authorized [id number] Closed Consult, Test & Treat Connection Center 01/12/2018 01/12/2019 1 1 Encounter Details Date Type Department Care Team (Late st Contact Info) Description 01/29/2018 8:00 AM EDT Office Visit Cardiology at [address] [phone] Baldo Wells MD [facility] [place] [address] Syncope, unspecified syncope type Social History Tobacco Use Types Packs/Day Years Used Date Smoking Tobacco: Former Cigarettes Q uit: 2001 Smokeless Tobacco: Never Sex and Gender Information Value Date Recorded Sex Assigned at Not on file Gender Identity Not on file Sexual Orientation Not on file documented as of this encounter Last Filed Vital Signs Vital Sign Reading Time Taken Comments Blood Pressure 124/80 01/29/2018 7:52 AM EDT Pulse 62 01/29/2018 7:52 AM EDT Temperature - - Respiratory Rate - - Oxygen Saturation 98% 01/29/2018 7:52 AM EDT Inhaled Oxygen Concentration - - Weight 96.7 kg (213 lb 3.2 oz) 01/29/2018 7:52 A M EDT Height 177.8 cm (5' 10) 01/29/2018 7:52 AM EDT Body Mass Index 30.59 01/29/2018 7:52 AM EDT documented in this encounter Progress Notes * Baldo Wells MD - 01/29/2018 8:00 AM EDT Images from the original note were not included. [facility] [place] [id number] CARDIOLOGY OUTPATIENT CONSULTATION [facility] Baldo Carty Jr. 01/29/2018 Primary Care Provider: Terrance Alves MD REFERRING PROVIDER: Valery Coleman CHIEF COMPLAINT: Chief Complaint Patient presents with ??? Loss of Consciousness PROBLEM LIST: 1. Fainting episode December 2017 HISTORY OF PRESENT ILLNESS: Mr. Baldo Carty is a 37 year old man with no significant reported past medical history, who presents as a new patient referral to the [facility] as a referral for a recent episode of syncope on January 05, 2018. He states that he was standing on top of his car doing work, and unfortunately was stung multiple times in the left armpit by hornets/wasps. He then obtained hornet spray and started walking back to his office. However, he then developed ringing in his ears, tunnel vision, and sweating, and ultimately fainted (unclear duration of loss of consciousness). No seizure-like activity. No preceding chest pain or shortness of breath. He was found by hisco-workers and brought to the emergency department where he was recovered and provided an epinephrine pen. In the several weeks prior to this time, he does report feeling carsick and having episodes of nondescript chest discomfort (non-radiating, non- exertionally mediated, without associated lightheadedness or dizziness). 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 Mountain biking). He reports having had an episode of fainting 9-10 years ago when he was doing physical therapy and was participating in exercises raising his left arm. No subsequent presyncope, syncope, palpitations, or other relevant symptoms reported since his incident/ER visit in December. ROS otherwise negative. PAST MEDICAL HISTORY (Problem List) None reported. SOCIAL HISTORY: Reviewed and updated as appropriate in the medical record. Non- smoker, occasional alcohol, no illicits. FAMILY HISTORY: Reviewed and updated as appropriate in the medical record. He has a paternal grandfather who suffered from a heart attack. Review of Systems: 12+ point review of systems was conducted and as noted in the the HPI; all others negative. MEDICATIONS: ??? EPINEPHrine 0.3 mg/0.3 mL Auto-Injector ALLERGIES: Reviewed and updated as appropriate in the medical record. PHYSICAL EXAMINATION: BP 124/80 Pulse 62 Ht 177.8 cm (5' 10) Wt 96.7 kg (213 lb 3.2 oz) SpO2 98% BMI 30.59 kg/m2 Exam Details: General: Physically fit male, appears well, no acute distress HEENT: Benign, EOMI, o/p clear Neck: Supple, non-tender, no masses, no bruits CV: Normal rate, regular rhythm, no m/r/g, no heaves, 2+ proximal and distal pulses Pulm: CTAB, moving air well GI: Soft, nd, nttp Extremities: No cyanosis, clubbing, or edema Psych: mood and affect normal Skin: intact with no breakdown Neuro: grossly non-focal Heme/Lymph: no lymphadenopthy Holter Monitor [facility] Baseline rhythm sinus. Rare single PAC. No SVT or atrial fibrillation. Rare single PVC. No VT. Nocturnal heart raates as low as 50-55 bpm, sinus bradycardia. No symptoms. Average heart rate 72 bpm. ASSESSMENT: Mr. Baldo Carty is a 37 year old man with no significant reported past medical history, who presents as a new patient referral to the [facility] as a referral for a recent episode of syncope on January 05, 2018. This occurred in the setting of multiple hornet/wasp stings while at his work with no recurrent episodes since that time. RECOMMENDATIONS: 1. Fainting Baldo suffered a syncopal event in the context of multiple hornet/wasp stings at the end of December 2017. It is not clear that he has any underlying contributing cardiac issues that precipitated his fainting. His EKG today shows normal sinus rhythm with an incomplete RBBB. He also had a holter montior showing no significant sustained atrial or ventricular arrhythmia. He has an echocardiogram scheduled locally ([facility]) tomorrow, for which I would like to review the findings to ensure that he does not have any structural heart abnormalities. Given his vague chest discomfort he reported experiencing in his car in the past months, I will also order a standard Neo treadmill stress test with myocardial perfusion imaging to rule out ischemia. Presuming these studies are unrevealing, he may resumehis usual activity and follow-up through his primary care practice. Thank you for requesting this consultation. For questions, please feel free to contact me by email at [email or web address] or through our phone service at [phone]. documented in this encounter Miscellaneous Notes * Assessment & Plan Note - Baldo Wells MD - 01/29/2018 9:40 AM EDT Associated Problem(s): Fainting Baldo suffered a syncopal event in the [...] he may resume his usual activity and f ollow-up through his primary care practice. documented in this encounter Plan of Treatment Not on file documented as of this encounter Procedures Procedure Name Priority Date/Time Associated Diagnosis Comments EKG 12-LEAD Routine 01/29/2018 8:42 AM EDT Syncope, unspecified syncope type documented in this encounter Results * NM Exercise Stress CT Component (02/05/2018 11:46 AM EDT) Anatomical Region Laterality Modality Nuclear Medicine Narrative 02/05/2018 12:08 PM EDT EXAMINATION: NM EXERCISE STRESS CT COMPONENT CLINICAL HISTORY: Study performed for attenuation correction of the myocardial perfusion scan. TECHNIQUE: A limited field of view, non-contrast, non-breath hold, low dose CT scan of the region surrounding the myocardium was performed for the purpose of attenuation correction of the myocardial perfusion scan. COMPARISON: None INCIDENTAL CT FINDINGS: No significant incidental CT findings. Please note the Nuclear Medicine portion of this exam is reported separately. Procedure Note Ari Rubio MD - 02/05/2018 EXAMINATION: NM EXERCISE STRESS CT COMPONENT CLINICAL HISTORY: Study performed for attenuation correction of the myocardial perfusionscan. TECHNIQUE: A limited field of view, non-contrast, non-breath hold, lowdose CT scan of the region surrounding the myocardium was performed for thepurpose of attenuation correction of the myocardial perfusion scan. COMPARISON: None INCIDENTAL CT FINDINGS: No significant incidental CT findings. Please note the Nuclear Medicine portion of this exam is reportedseparately. Baldo Wells MD IMG NM ORDERABLES * Nuclear Exercise Stress Cardiology (02/05/2018 11:08 AM EDT) Anatomical Region Laterality Modality Other Baldo Wells MD CARDIAC SERVICES ORD ERABLES * NM Exercise Stress Myocardial Perfusion (02/05/2018 11:03 AM EDT) Anatomical Region Laterality Modality Nuclear Medicine Impressions 02/05/2018 2:26 PM EDT No ischemia or scar. ??Left ventricular function is normal. Preliminary report signed by: Aris Alejandra at 02/05/2018 2:00 PM I have personally reviewed the image(s) and the residents interpretation and agree with the findings, Jagdeep Florence at 02/05/2018 2:26 PM Narrative 02/05/2018 2:26 PM EDT EXAMINATION: NM EXERCISE STRESS MYOCARDIAL PERFUSION CLINICAL HISTORY: chest pain/angina/syncope TECHNIQUE: During rest, 7.2 mCi of technetium-99 sestamibi were administered intravenously. Approximately 15 minutes later, SPECT images of the heart were obtained with reconstruction in the short, vertical long and horizontal long axes. The patient was then exercised to 15.7 METS to a peak heart rate of 193 bpm which is 105 % of the maximum predicted heart rate. ??24.8 mCi of technetium-99m sestamibi was then administered intravenously and the patient was exercised for one and one half additional minutes. Images of the heart were then again obtained with SPECT reconstruction. A low dose CT scan was acquired for the purpose of attenuation correction. COMPARISON: None FINDINGS: No fixed or reversible perfusion defects are present. Functional analysis: Myocardial function: There is normal wall motion and wall thickening. Left ventricular ejection fraction: 70 % (normal greater than 50%) Procedure Note Jagdeep Florence MD - 02/05/2018 EXAMINATION: NM EXERCISE STRESS MYOCARDIAL PERFUSION CLINICAL HISTORY: chest pain/angina/syncope TECHNIQUE: During rest, 7.2 mCi of technetium-99 sestamibi wereadministered intravenously. Approximately 15 minutes later, SPECT images of the heartwere obtained with reconstruction in the short, vertical long and horizontallong axes. The patient was then exercised to 15.7 METS to a peak heart rate of 193bpm which is 105 % of the maximum predicted heart rate. 24.8 mCi oftechnetium-99m sestamibi was then administered intravenously and the patient wasexercised for one and one half additional minutes. Images of the heart were then again obtained with SPECT reconstruction. A low dose CT scan was acquired for the purpose of attenuationcorrection. COMPARISON: None FINDINGS: No fixed or reversible perfusion defects are present. Functional analysis: Myocardial function: There is normal wall motion and wall thickening. Left ventricular ejection fraction: 70 % (normal greater than 50%) IMPRESSION No ischemia or scar. Left ventricular function is normal. Preliminary report signed by: Aris Alejandra at 02/05/2018 2:00 PM I have personally reviewed the image(s) and the residents interpretationand agree with the findings, Jagdeep Florence at 02/05/2018 2:26 PM Baldo Wells MD [facility] ORDERABLES * EKG 12 Lead (01/29/2018 8:42 AM EDT) Ventricular rate 64 BPM MUSE SYSTEM Atrial Rate 64 BPM MUSE SYSTEM P-R Interval 182 ms MUSE SYSTEM QRS Duration 110 ms MUSE SYSTEM Q-T Interval 410 ms MUSE SYSTEM QTC Calculated (Bezet) 422 ms MUSE SYSTEM Calculated P [place] 9 degrees MUSE SYSTEM Calculated R [place] 23 degrees MUSE SYSTEM Calculated T [place] 21 degrees MUSE SYSTEM INTERPRETATION Normal sinus rhythm Normal ECG No previous ECGs available Confirmed by Home Brown MD ([id number]) on 01/29/2018 4:41:19 PM MUSE SYSTEM 01/29/2018 8:42 AM EDT 01/29/2018 4:41 PM EDT Baldo Wells MD ECG ORDERABLES Performing Organization Address City/State/[facility] Co de Phone Number MUSE SYSTEM documented in this encounter Visit Diagnoses Diagnosis Syncope, unspecified syncope type Syncope, unspecified syncope type Syncope, unspecified syncope type documented in this encounter Care Teams Teaching Supervisor Relationship Specialty Start Date End Date Terrance Alves MD [address] [place] [id number] PCP - General Internal Medicine 01/12/18 documented as of this encounter
--- OUTSIDE RECORDS SUMMARY | 2024-03-26 16:33 | XMS_ITS | Encounter Summary ---
[place] [address] Care Team Providers Care Evp Chief Exploration Officer Name Role Phone Terrance Alves MD Primary Care Provider [phone] Encounter Details Date Type Department Care Team (Latest Contact Info) Description 02/10/2022 9:15 AM EDT Clinical [place] [phone] Toxic effect of venom of bees, accidental [...] Sign Reading Time Taken Comments Blood Pressure 118/82 02/10/2022 9:32 AM EDT Pulse 75 02/10/2022 9:32 AM EDT Temperature - - Respiratory Rate - - Oxygen Saturation 98% 02/10/2022 9:32 AM EDT Inhaled Oxygen Concentration - - Weight - - Height - - Body Mass Index - - documented in this encounter Progress Notes * Evie Lloyd RN - 02/10/2022 9:15 AM EDT Patient: Baldo Carty Jr. 1980 [id number] Documentation of screening pre-immunotherapy questionnaire responses See scanned document of pre-immunotherapy screening questionnaire. To briefly summarize (place an X in the box that corresponds to patient's answers): [x] The patient answered no to all screening questions #1-6. [na] The patient answered yes to at least one of the screening questions (document findings below). Answers documented on questionnaire: Patient expressed complaints of I think this is effecting my heart when asked to explain further patient stated that he went for a bike ride on Monday, two days after his first dose of VIT, and felt like I was going to the exertion of the bike ride had been a lot for him. Patient expressed c/o heart beating rapidly and felt SOB. Patient stated that he bikes most nights, if the weather is nice, and has never had this issue of feeling winded before. Reported findings to Dr. Anisa Holly, who spoke with patient and ordered to repeat the last dose and see how he does after his bike ride oniday the earliest. Dr. Anisa Holly also ordered that patient make a follow up appointment with Dr. Beckham to discuss how he was feeling. Follow up with Dr. Beckham scheduled for 03/08/22. Patient was also advised by this comic book writer to send us a Create message to see how he does after his bike ride. Patientverbalized his understanding. Documentation of Dose Adjustments: Dose adjustment needed prior to injection: [yes] If yes, please fill out the following: Reason for dose adjustment: See note above New dose and/or change in build: MV 0.03 mcg/mL @ 0.1 mL, W 0.01 mcg/mL @ 0.1 mL, HB 0.01 mcg/mL @ 0.1 mL. Documentation of Injection: Baldo Carty Jr. has come into the Allergy Clinic for immunotherapy injections. Antihistamine taken as directed. Patient has required Epipen available, verified as current and with patient. yes Injections given per Dr. Beckham's orders. No data found. Injections given: Building (STOCK VIALS) Extract: Mixed Vespid Dilution: 0.03mcg/mL Dose: 0.1mL Site: right upper arm subcutaneous upper Rxn: < palm EXP: 02/10/22 LOT #: [id number] WASHERY BOSS:Nesha Extract: Wasp Dilution 0.01mcg/mL Dose: 0.1mL Site: left upper arm subcutaneous upper Rxn: < palm EXP: 02/10/22 LOT #: [id number] WASHERY BOSS:Nesha Extract: Honeybee Dilution: 0.01mcg/mL Dose: 1.0mL Site: left upper arm subcutaneous lower Rxn: < palm EXP: 02/10/22 LOT#: [id number] WASHERY BOSS:Nesha Patient was observed here in the waiting area for 30 minutes. No adverse side effects were noted. Patient ambulated from clinic in stable condition. documented in this encounter Plan of Treatment Not on file documented as of this encounter Visit Diagnoses Diagnosis Toxic effect of venom of bees, accidental (unintentional), initial encounter documented in this encounter Care Teams Evp Chief Exploration Officer Relationship Specialty Start Date End Date Terrance Alves MD [address] [place] [id number] PCP - General Internal Medicine 01/12/18 documented as of this encounter
--- OUTSIDE RECORDS SUMMARY | 2024-03-26 16:33 | XMS_ITS | Encounter Summary ---
Author Organization [facility] Address [address] [place] [address] Care Team Providers Care Commission Broker Name Role Phone Terrance Alves MD Primary Care Provider [phone] Encounter Details Date Type Department Care Team (Late st Contact Info) Description 12/07/2021 Lab Requisition [facility] Pathology & Laboratory Medicine - [address] [address] Outr Resulting Lab, Provider Social History Tobacco Use Types Packs/Day Years Used Date Smoking Tobacco: Never Smokeless Tobacco: Never Interpersonal Safety Answer Date Record ed Physically Hurt Never 01/12/2020 Verbally Threaten Not on file 01/12/2020 Sex and Gender Information Value Date Recorded Sex Assigned at Not on file Gender Identity Not on file Sexual Orientation Not on file documented as of this encounter Functional Status Functional Status Response Date of Assess ment Because of a physical, menta l, or emotional condition, does this person have difficulty doing errands alone such as visiting a doctor's office or shopping? No 06/15/2018 Cognitive Status Response Date of Assessm ent Because of a physical, menta l, or emotional condition, does this person have serious difficulty concentrating, remembering, or making decisions? No 06/15/2018 documented as of this encounter Plan of Treatment Not on file documented as of this encounter Procedures Procedure Name Priority Date/Time Associated Diagnosis Comments LYME AB Routine 12/07/2021 9:25 EDT documented in this encounter Results * LYME AB (12/07/2021 9:25 EDT) Lyme Ab Negative Negative 12/08/2021 11:10 EDT [facility] Blood VENOUS BLOOD / Unknown 12/07/2021 9:25 EDT 12/07/2021 22:23 EDT Provider Outr Resulting Lab IMMUNOLOGY A ND SEROLOGY ORDERABLES [facility] [address] [place] [address] documented in this encounter Visit Diagnoses Not on filedocumented in this encounter Care Teams Commission Broker Relationship Specialty Start Date End Date Terrance Alves MD [address] [place], [place] [id number] PCP - General 06/15/18 documented as of this encounter
--- OUTSIDE RECORDS SUMMARY | 2024-03-26 16:33 | XMS_ITS | Encounter Summary ---
Author Organization [facility] [place] [address] Care Team Providers Care Vertica Architect Name Role Phone Terrance Alves MD Primary Care Provider [phone] Reason for Visit * Diagnostic Test (Routine) - Closed Specialty Diagnoses / Procedures Referred By Contac t Referred To Contact Radiology Diagnoses Syncope, unspecified syncope type Procedures NM Exercise Stress Myocardial Perfusion Baldo Wells MD [facility] [place] [address] [place] [address] Referral ID Status Reason Start Date Expiration Date V isits Requested Visits Authorized [id number] Closed Specialty Service Requested 01/29/2018 04/29/2018 4 4 Encounter Details Date Type Department Care Team (Latest Contact Info) Description 02/05/2018 9:43 AM EDT - 02/05/2018 11:59 PM EDT Hospital En[place] [phone] Baldo Wells MD [facility] [place] [address] Discharge Disposition: Home Social History Tobacco Use Types Packs/Day Years Used Date Smoking Tobacco: Former Cigarettes Q uit: 2001 Smokeless Tobacco: Never Sex and Gender Information Value Date Recorded Sex Assigned at Not on file Gender Identity Not on file Sexual Orientation Not on file documented as of this encounter Medications at Time of Discharge Medication Sig Dispensed Refills Start Date End Date EPINEPHrine 0.3 mg/0.3 mL Auto-Injector as needed. 01/05/2018 03/14/2022 documented as of this encounter Plan of Treatment Not on file documented as of this encounter Procedures Procedure Name Priority Date/Time Associated Diagnosis Comments NM EXERCISE STRESS AND REST MYOCARDIAL PERFUSION Routine 02/05/2018 11:03 AM EDT Syncope, unspecified syncope type documented in this encounter Visit Diagnoses Not on filedocumented in this encounter Administered Medications Inactive Administered Medications - up to 3 most recent administrations Medication Order MAR Action Action Date Dose Rate Site technetium (Tc-99m) sestamibi injection 24.8 mCi 24.8 mCi, Intravenous, ONCE PRN, 1 dose, Starting on Mon02/05/18 at 1100, Until Mon02/05/18 at 1100, Per Protocol, Routine Given 02/05/2018 11:00 AM EDT 24.8 mCi documented in this encounter Care Teams Vertica Architect Relationship Specialty Start Date End Date Terrance Alves MD [address] [place] [address] PCP - General Internal Medicine 01/12/18 documented as of this encounter
--- OUTSIDE RECORDS SUMMARY | 2024-03-26 16:33 | XMS_ITS | Encounter Summary ---
Author Organization [facility] [place] [place] [address] Care Team Providers Care Patient Coordinator Front Desk Name Role Phone Terrance Alves MD Primary Care Provider [phone] Encounter Details Date Type Department Care Team (Latest Contact Info) Description 04/01/2022 11:15 AM EDT [place] [phone] Toxic effect of venom of bees, accidental [...] Reading Time Taken Comments Blood Pressure 124/80 04/01/2022 10:59 AM EDT Pulse 70 04/01/2022 10:59 AM EDT Temperature - - Respiratory Rate - - Oxygen Saturation 98% 04/01/2022 10:59 AM EDT Inhaled Oxygen Concentration - - Weight - - Height - - Body Mass Index - - documented in this encounter Progress Notes * Tacos Amaro - 04/01/2022 11:15 AM EDT Patient: Baldo Carty Jr. 1980 [id number] Documentation of screening pre-immunotherapy questionnaire responses See [...] the past 24 hrs: Pulse BP SpO2 04/01/22 1059 70 124/80 98 % Injections given: Building (STOCK VIALS) Extract: Mixed Vespid Dilution: 0.003mcg/mL Dose: 0.5mL Site: left upper arm subcutaneous upper Rxn: none EXP: 04/01/2022 LOT #: [id number] PHYSICIAN NEONATOLOGY:Catatier Extract: Wasp Dilution 0.001mcg/mL Dose: 0.5mL Site: right upper arm subcutaneous upper Rxn: none EXP: 04/01/2022 LOT #: [id number] PHYSICIAN NEONATOLOGY:JasonisterStier Extract: Honeybee Dilution: 0.001mcg/mL Dose: 0.5mL Site: right upper arm subcutaneous lower Rxn: none EXP: 04/01/2022 LOT#: [id number] PHYSICIAN NEONATOLOGY:HollisterStier Patient was observed here in the waiting area for 30 minutes. No adverse side effects were noted. Patient ambulated from clinic in stable condition. documented in this encounter Plan of Treatment Not on file documented as of this encounter Visit Diagnoses Diagnosis Toxic effect of venom of bees, accidental (unintentional), initial encounter documented in this encounter Care Teams Patient Coordinator Front Desk Relationship Specialty Start Date End Date Trerance Alves MD [address] [place] [address] PCP - General Internal Medicine 01/12/18 documented as of this encounter
--- OUTSIDE RECORDS SUMMARY | 2024-03-26 16:33 | XMS_ITS | Encounter Summary ---
[place] [address] Care Team Providers Care Vibrator Operator Name Role Phone Terrance Alves MD Primary Care Provider [phone] Encounter Details Date Type Department Care Team (Latest Contact Info) Description 04/25/2022 9:00 AM EST [place] [phone] Toxic effect of venom of bees, accidental [...] Sign Reading Time Taken Comments Blood Pressure 112/72 04/25/2022 9:11 AM EST Pulse 98 04/25/2022 9:11 AM EST Temperature - - Respiratory Rate - - Oxygen Saturation 99% 04/25/2022 9:11 AM EST Inhaled Oxygen Concentration - - Weight - - Height - - Body Mass Index - - documented in this encounter Progress Notes * Haylee Sosa RN - 04/25/2022 9:00 AM EST Patient: Baldo Carty . 1980 [id number] Documentation of screening pre-immunotherapy questionnaire responses See [...] VIALS) Extract: Mixed Vespid Dilution: 0.3mcg/mL Dose: 0.1mL Site: left upper arm subcutaneous upper Rxn: < palm EXP: 05/06/22 LOT #: [id number] [employer] HR DEVELOPER:HollisterStier Extract: Wasp Dilution 0.1mcg/mL Dose: 0.1mL Site: right upper arm subcutaneous upper Rxn: < palm EXP: 05/06/22 LOT #: [id number] [employer] HR DEVELOPER:HollisterStier Extract: Honeybee Dilution: 0.1mcg/mL Dose: 0.1mL Site: right upper arm subcutaneous upper Rxn: < palm EXP: 05/06/22 LOT#: [id number] [employer] HR DEVELOPER:HollisterStier Patient was observed here in the waiting area for 30 minutes. No adverse side effects were noted. Patient ambulated from clinic in stable condition. documented in this encounter Plan of Treatment Not on file documented as of this encounter Visit Diagnoses Diagnosis Toxic effect of venom of bees, accidental (unintentional), initial encounter documented in this encounter Care Teams Vibrator Operator Relationship Specialty Start Date End Date Terrance Alevs MD [address] [place] [address] PCP - General Internal Medicine 01/12/18 documented as of this encounter
--- OUTSIDE RECORDS SUMMARY | 2024-03-26 16:33 | XMS_ITS | Encounter Summary ---
[facility] [place] [address] Care Team Providers Care Manager Business Process Name Role Phone Terrance Alves MD Primary Care Provider [phone] Reason for Visit * Reason Onset Date Comments Medication Refill 03/14/2022 Encounter Details Date Type Department Care Team (Late st Contact Info) Description 03/14/2022 [place] [address] Jayda Beckham MD [facility] [address] [facility] [address] Social History Tobacco Use Types Packs/Day Years [...] filedocumented in this encounter Care Teams Manager Business Process Relationship Specialty Start Date End Date Terrance Alves MD [address] [place] [address] PCP - General Internal Medicine 01/12/18 documented as of this encounter
--- OUTSIDE RECORDS SUMMARY | 2024-03-26 16:33 | XMS_ITS | Encounter Summary ---
Author Organization [facility] Address [facility] [place] [address] Care Team Providers Care Appeals Representative Name Role Phone Terrance Alves MD Primary Care Provider [phone] Reason for Visit * Reason Comments Allergies * Allergy Testing (Urgent) - Closed Specialty Diagnoses / Procedures Referred By Contmaria a t Referred To Contact Allergy Diagnoses Personal history of anaphylaxis Terrance Alves MD [address] [place] [address] [facility] [address] [place] [address] Referral ID Status Reason Start Date Expiration Date V isits Requested Visits Authorized [id number] Closed Consult, Test & Treat PCP Updated and/or Approved 12/22/2021 12/22/2022 12 12 Encounter Details Date Type Department Care Team (Late st Contact Info) Description 01/04/2022 9:30 AM EDT [place] [phone] Jayda Beckham MD [facility] [address] [facility] [address] Anaphylaxis, initial encounter; Allergic reaction to insect sting, accidental or unintentional, initial encounter; Desensitization to allergens; Food intolerance Social History Tobacco Use Types Packs/Day Years Used Date Smoking Tobacco: Former Cigarettes Q uit: 2001 Smokeless Tobacco: Never Sex and Gender Information Value Date Recorded Sex Assigned at Not on file Gender Identity Not on file Sexual Orientation Not on file documented as of this encounter Last Filed Vital Signs Vital Sign Reading Time Taken Comments Blood Pressure 127/83 01/04/2022 9:02 AM EDT Pulse 67 01/04/2022 9:02 AM EDT Temperature - - Respiratory Rate - - Oxygen Saturation 97% 01/04/2022 9:02 AM EDT Inhaled Oxygen Concentration - - Weight 99.1 kg (218 lb 8 oz) 01/04/2022 9:02 AM EDT Height - - Body Mass Index 31.35 08/31/2018 8:50 AM EDT documented in this encounter Progress Notes * Jayda Beckham MD - 01/04/2022 9:30 AM EDT CC: sting reaction HPI: Baldo Carty Jr. is a 41 y.o. male with a PMH of sting reaction presenting for evaluation of recurrent sting reaction at the request of Terrance Alves. Returns to discuss insect sting allergy. I last saw him on August 31, 2018. 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 When I first met him he reported an episode where he was stung 3times by hornets and 20 to 30 minutes later developed ringing in his ears, diaphoresis, dizziness, loss of consciousness, but no rash. He reportedly woke up in the ambulance but did not get epinephrine; there was question if he had a vasovagal reaction. The patient had positive allergy testing to yellowjacket, yellow hornet, white hornet, wasp. He was negative to honeybee on skin test and blood test. While vasovagal syncope was within the differential, I also felt anaphylaxis was still possiblebecause I felt it was unusual that the patient would become vasovagal from a hornet sting and not ahoneybee. Additionally, with no rash, anaphylaxis can be harder to recognize. Patient was out of town a lot of the time, often for many weeks, so was unable to pursue immunotherapy. His tryptase was normal. Since his last visit he reports that he did fine until recently when he was stung again, he thinks by a wasp. This was on his right wrist and he brushed it off quickly. Within 15 minutes he lost consciousness. He states that he felt his blood pressure dropping and also had the urge to urinate and have a bowel movement. He did not have nausea, vomiting, rash, itching, angioedema of his tongue or throat, but felt that his heart was racing and felt like he had trouble remembering to breathe. He states that he used his epinephrine but it had been for a few months and it did not help. The EMS arrived and gave him more epinephrine and he did not find it helpful at that time either. States he was in and out of consciousness during this time. States that he tried to get up to to the bathroom but when he got up he was dizzy and had to lay down again. The ED then gave him Benadryl and he felt better at that point. He denies being on any new medications or blood pressure medications at this time. He has a new EpiPen now. 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 He also admits to several episodes, 3-4 times when he has eaten out at restaurants and experienced lightheadedness with similar symptoms to what he experienced with the sting but much milder. He has been unable to identify specific food pattern but is not sure what has been in all of the meals. ROS is per HPI all others reviewed and are negative. Patient Active Problem List Diagnosis Code ??? Fainting R55 Past Medical History: Diagnosis Date ??? Insect sting allergy, current reaction History reviewed. No pertinent surgical history. ??? methylphenidate (RITALIN) 20 mg Tablet ??? EPINEPHrine 0.3 mg/0.3 mL Auto-Injector Allergies Allergen Reactions ??? Hymenoptera Allergenic Extract Pt reported wasps Family History Problem Relation Age of Onset ??? Myocardial Infarction Paternal Grandfather Social History Socioeconomic History ??? Marital status: Spouse name: Not on file ??? Number of children: Not on file ??? Years of education: Not on file ??? Highest education level: Not on file Occupational History ??? Not on file Tobacco Use ??? Smoking status: Former Smoker Types: Cigarettes Quit date: 2001 Years since quittin.5 ??? Smokeless tobacco: Never Used Vaping Use ??? Vaping Use: Never used Substance and Sexual Activity ??? Alcohol use: Not on file ??? Drug use: Never ??? Sexual activity: Not on file Other Topics Concern ??? Not on file Social History Narrative ??? Not on file Social Determinants of Health Financial Resource Strain: Not on file Food Insecurity: Not on file Transportation Needs: Not on file Physical Activity: Not on file Housing Stability: Not on file PHYSICAL EXAM: BP 127/83 Pulse 67 Wt 99.1 kg (218 lb 8 oz) SpO2 97% BMI 31.35 kg/m?? Constitutional: awake, alert, no acute distress Head: normocephalic, atraumatic Eyes: conjunctiva without injection or icterus, no discharge appreciated, no edema of eyelids ENT: normal pinnae, no stridor, quality of voice is normal without nasal quality or hoarseness Neck: no visible goiter or enlargement of neck, symmetric Resp: no increased work of breathing observed, no coughing observed, speaking in full sentences without difficulty, normal rate of breathing, no accessory muscle use CVS: normal color and perfusion, no apparent cyanosis Extremities: no apparent joint deformity observed, normal appearing muscle bulk, normal and symmetric ROM of visible extremities Skin: no visible rash or lesions, normal color, no mottling Neuro: EOMI, no dysarthria Psych: normal grooming, appropriate mood and affect, normal volume/quantity/tone of speech, normal thought process and content ASSESSMENT AND PLAN: 41 y.o. male with recurrence of syncope after an insect sting, this time more persistent and accompanied by bowel and bladder urgency. STING ALLERGY I did again recommend immunotherapy for insect stings. 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 We reviewed that he has positive testing to insect stings, and when he was stung by one of these insects, he experienced syncope, bowel and urinary urgency, all of which could be consistent with an anaphylactic reaction. He has not had this reaction when stung by an insect for which he has negative testing. Additionally I would expect a vasovagal reaction to resolve more quickly as most patients who have a vasovagal reaction improve relatively rapidly with return of consciousness after lying down (within minutes). It sounds like he had persistent hypotension despite epinephrine which can occur with a very severe insect sting allergy. Though he did not have a rash this can also be seen in very severeinsect sting allergy which progresses rapidly. He also had tachycardia while vasovagal syncope would be more likely to result in bradycardia. I recommended we repeat the honeybee test to ensure that it has remained negative because if it waspositive I would include it in the VIT. I also recommended repeating the tryptase. I recommend continue to carry an EpiPen and if he is stung by any hornets, wasps, or yellow jacketsprior to reaching full VIT dose, to immediately use this and call 911, even if he does not experience symptoms. This is because he had syncope that was not responsive to epinephrine which is high risk. Once he is at his full dose of venom immunotherapy he can wait to see if he experiences a reaction before using epinephrine but I recommend still carrying an EpiPen. VIT We reviewed the risks versus benefits of venom immunotherapy: Allergy shots for insect venom reduce the risk of a severe reaction from 50-60% to less than 5%. Shots are weekly for about 3.5 months, then monthly after that. It is recommended to do the shots for 3-5 years, after which time most patients can safely stop shots and maintain their protection (about90%). The most common reactions to the shots are large, local reactions which can be managed with ice andincreased dose of antihistamines, but which may require adjustment of immunotherapy schedule. The most severe reaction is anaphylaxis, which may require transfer to ED for additional monitoring. Severity of systemic reaction such as anaphylaxis can vary from mild to life-threatening and symptoms may include, but are not limited to, hives, wheezing, swelling, dizziness, loss of consciousness, respiratory distress, drop in blood pressure. It is exceedingly rare, but possible, for anaphylaxis fromallergy shots to require hospitalization or lead to . Taking an antihistamine the morning of the shot is required and reduces the likelihood of a reaction to the shot. Asthma, if present, must be well- controlled at the time of the shot and if patient iswheezing or asthma is otherwise not controlled then patient will not receive shot and schedule willbe adjusted. Consent form which outlines these points was reviewed with the patient and signed. I will wait to order this until the honeybee test comes back after which point he can start this any time it fits in his schedule. Food concerns: Without knowing what specific ingredients he was exposed to I am unable to provide any testing. I recommended the patient try to obtain a list of ingredients for any of the foods he was exposed to and counseled that often a restaurant will provide this information if he calls and tells him that he had an allergic reaction. I then recommend reviewing the food list and crossing off anything that he eats regularly without a reaction. What ever remains is something we can consider testing to for if we are able. Return to see me in 6 months. Jayda Beckham MD Orders Placed This Encounter Procedures ??? Venom, Honeybee IgE ??? Tryptase documented in this encounter Plan of Treatment Not on file documented as of this encounter Procedures Procedure Name Priority Date/Time Associated Diagnosis Comments HC VENIPUNCTURE Routine 01/04/2022 10:27 AM EDT Anaphylaxis, initial encounter HC ALLERGEN (IGE), LEVEL 1 Routine 01/04/2022 10:27 AM EDT Anaphylaxis, initial encounter documented in this encounter Results * Tryptase (01/04/2022 10:27 AM EDT) Tryptase 3.8 <=8.4 ng/mL [facility] Comment: Total tryptase concentrations that are persistently greater than 20 ng/mL may be consistent with systemic mastocytosis. Blood 01/04/2022 10:2 7 AM EDT 01/05/2022 7:29 AM EDT Narrative Resulting Agency Comment Spec In Lab Jayda Beckham MD CHEMISTRY ORDERABLES [facility] [place] [address] * Venom, Honeybee IgE (01/04/2022 10:27 AM EDT) Honeybee, IgE 0.36 kU/L [facility] Comment: Reference Ranges <0.35 kU/L Class 0: ??Normal 0.35-0.69 kU/L Class 1: ??Low level of allergy, indicative of ongoing sensitization 0.70-3.49 kU/L Class 2: ??Moderate level of allergy, indicative of stronger ongoing sensitization 3.50-17.49 kU/L Class 3: ??High level of allergy, indicative of high level sensitization 17.5-49.9 kU/L Class 4: Very high level of allergy, indicative of very high level sensitization 50.0-100 kU/L Class 5: Very high level of allergy, indicative of very high level sensitization >100 kU/L Class 6: Very high level of allergy, indicative of very high level sensitization Blood 01/04/2022 10:2 7 AM EDT 01/05/2022 7:29 AM EDT Narrative Resulting Agency Comment Spec In Lab Jayda Beckham MD IMMUNOLOGY ORDERABLE S Performing Organization Address City/State/[facility] [place] [address] documented in this encounter Visit Diagnoses Diagnosis Anaphylaxis, initial encounter Allergic reaction to insect sting, accidental or unintentional, initial encounter Desensitization to allergens Need for desensitization to allergens Food intolerance Other specified intestinal malabsorption documented in this encounter Care Teams Appeals Representative Relationship Specialty Start Date End Date Terrance Alves MD [address] [place] [address] PCP - General Internal Medicine 01/12/18 documented as of this encounter
--- OUTSIDE RECORDS SUMMARY | 2024-03-26 16:33 | XMS_ITS | Encounter Summary ---
[facility] [place] [address] Care Team Providers Care Field Advisor Name Role Phone Terrance Alves MD Primary Care Provider [phone] Encounter Details Date Type Department Care Team (Latest Contact Info) Description 04/04/2022 9:15 AM EDT [place] [phone] Toxic effect of venom of bees, accidental [...] Sign Reading Time Taken Comments Blood Pressure 112/74 04/04/2022 9:16 AM EDT Pulse 74 04/04/2022 9:16 AM EDT Temperature - - Respiratory Rate - - Oxygen Saturation 98% 04/04/2022 9:16 AM EDT Inhaled Oxygen Concentration - - Weight - - Height - - Body Mass Index - - documented in this encounter Progress Notes * Tacos Amaro - 04/04/2022 9:15 AM EDT Patient: Baldo Carty Jr. 1980 [id number] Documentation of screening pre-immunotherapy questionnaire responses See [...] the past 24 hrs: Pulse BP SpO2 04/04/22 0916 74 112/74 98 % Injections given: Building (STOCK VIALS) Extract: Mixed Vespid Dilution: 0.003mcg/mL Dose: 0.8mL Site: right upper arm subcutaneous upper Rxn: < palm EXP: 04/04/2022 LOT #: [id number] WELL SITE DRILLING ENGINEER:Catatier Extract: Wasp Dilution 0.001mcg/mL Dose: 0.8mL Site: left upper arm subcutaneous upper Rxn: < palm EXP: 04/04/2022 LOT #: [id number] WELL SITE DRILLING ENGINEER:JasonisterStier Extract: Honeybee Dilution: 0.001mcg/mL Dose: 0.8mL Site: left upper arm subcutaneous lower Rxn: < palm EXP: 04/04/2022 LOT#: [id number] WELL SITE DRILLING ENGINEER:WidbookJose Carlostier Patient was observed here in the waiting area for 30 minutes. No adverse side effects were noted. Patient ambulated from clinic in stable condition. documented in this encounter Plan of Treatment Not on file documented as of this encounter Visit Diagnoses Diagnosis Toxic effect of venom of bees, accidental (unintentional), initial encounter documented in this encounter Care Teams Field Advisor Relationship Specialty Start Date End Date Terrance Alves MD [address] [place] [address] PCP - General Internal Medicine 01/12/18 documented as of this encounter
--- OUTSIDE RECORDS SUMMARY | 2024-03-26 16:33 | XMS_ITS | Encounter Summary ---
[place] [address] Care Team Providers Care Data Entry Manager Name Role Phone Terrance Alves MD Primary Care Provider [phone] Encounter Details Date Type Department Care Team (Latest Contact Info) Description 02/04/2022 9:30 AM EDT Clinical [place] [phone] Toxic effect of venom of bees, unintentional, [...] Sign Reading Time Taken Comments Blood Pressure 120/76 02/04/2022 9:22 AM EDT Pulse 64 02/04/2022 9:22 AM EDT Temperature - - Respiratory Rate - - Oxygen Saturation 98% 02/04/2022 9:22 AM EDT Inhaled Oxygen Concentration - - Weight - - Height - - Body Mass Index - - documented in this encounter Progress Notes * Natalya Rodriguez RN - 02/04/2022 9:30 AM EDT Patient: Baldo Carty Jr. 1980 [id number] Documentation of screening pre-immunotherapy questionnaire responses See [...] with patient. n Injections given per Dr. Holly's orders. Patient Vitals for the past 24 hrs: Pulse BP SpO2 02/04/22 0922 64 120/76 98 % Injections given: Building (STOCK VIALS) Extract: Mixed Vespid Dilution: 0.03 Dose: 0.1mL Site: left upper arm subcutaneous upper Rxn: < palm EXP: 02/11/23 LOT #: [id number] RETAIL [employer]METICS SALES BEAUTY ADVISOR:HollisterStier Extract: Wasp Dilution 0.01mcg/mL Dose: 0.1mL Site: right upper arm subcutaneous upper Rxn: < palm EXP: 02/11/23 LOT #: [id number] [employer] SALES BEAUTY ADVISOR:HollisterStier Extract: Honeybee Dilution: 0.01mcg/mL Dose: 0.1mL Site: right upper arm subcutaneous upper Rxn: < palm EXP: 02/11/23 LOT#: [id number] RET[employer] COSMET[employer] SALES BEAUTY ADVISOR: Pt teaching on reaction and dose management. All questions answered. Patient was observed here in the waiting area for 30 minutes. No adverse side effects were noted. Patient ambulated from clinic in stable condition. documented in this encounter Plan of Treatment Not on file documented as of this encounter Visit Diagnoses Diagnosis Toxic effect of venom of bees, unintentional, initial encounter documented in this encounter Care Teams Data Entry Manager Relationship Specialty Start Date End Date Terrance Alves MD [address] [place] [address] PCP - General Internal Medicine 01/12/18 documented as of this encounter
--- OUTSIDE RECORDS SUMMARY | 2024-03-26 16:33 | XMS_ITS | Encounter Summary ---
Author Organization [facility] Address [address] [place] [address] Care Team Providers Care Agricultural Equipment Salesperson Name Role Phone None, Provider Primary Care Provider Terrance Salamanca MD Primary Care Provider [phone] Encounter Details Date Type Department Care Team (Late st Contact Info) Description 03/23/2016 Historical Results Only [facility] [place] [facility] - [address] [place] [address] Jagdeep Carlin MD [address] [place] [address] [address] [place] [address] Social History Tobacco Use Types Packs/Day Years Used Date Smoking Tobacco: Never Assessed Sex and Gender Information Value Date Recorded Sex Assigned at Not on file Gender Identity Not on file Sexual Orientation Not on file documented as of this encounter Plan of Treatment Not on file documented as of this encounter Procedures Procedure Name Priority Date/Time Associated Diagnosis Comments SURGICAL PATHOLOGY Routine 03/23/2016 11 :25 EDT documented in this encounter Results * SURGICAL PATHOLOGY (03/23/2016 11:25 EDT) 03/23/2016 11:2 5 EDT 03/23/2016 11:25 EDT Narrative [facility] - 03/25/2016 12:41 EDT ----- ------- Name: BALDO VIVAR ?: [birth year] ?Age/Sex: 38/M ?Unit#: [id number] ? Loc: END ? Status: DEP CLI ?? Reg Date: 03/23/16 ? Pt.Phone Number: ? ----- ------- Specimen: [id number] ? STATUS: SOUT ?Spec Date:03/23/16 ? Physician Copies: ?Jagdeep Carlin MD ? Tissues: A ?? Endoscopy specimen (TERMINAL ILEUM) ?Terrance Alves ? B ?? Endoscopy specimen (RANDOM COLON) ? CPT: 86482 ?? Units: ??2 ?FINAL DIAGNOSIS ? A. TERMINAL ILEUM, BIOPSY; ? - Ileal mucosa with aphthous ulcers. ? - Preserved villous architecture. ? - No active inflammation identified. ? B. COLON, RANDOM BIOPSY; ? - Colonic mucosa with no specific pathologic features. ? - No histologic evidence of microscopic colitis. ? GROSS DESCRIPTION ? A. ??Received in formalin labeled with the patient's name and TI Bx are two ? mucosal tissue fragments ranging in size from 0.4 to 0.5 cm. es 1 ? B. ??Received in formalin labeled with the patient's name and Random colon bx ? are nine mucosal tissue fragments ranging in size from 0.2 to 0.9 cm. es 2 KF ?? PREOP DX/CLINICAL HISTORY ?DIARRHEA / BLEEDING Signed ____(signature on file)____ Radha Nassar M.D. 03/25/16 By the signature above, the attending physician certifies that he/she has personally conducted a gross and/or microscopic examination of the described specimens and rendered or confirmed the above diagnosis. Test Performed by [facility], [address] [place] [address] Estate Conservator: Radha Nassar MD PHD ----- ------- Jagdeep Carlin MD PATHOLOGY ORDERABLES [facility] documented in this encounter Visit Diagnoses Not on filedocumented in this encounter Care Teams Agricultural Equipment Salesperson Relationship Specialty Start Date End Date None, Provider PCP - General 04/25/15 06/14/18 Terrance Alves MD [address] [place] [address] PCP - General 06/15/18 documented as of this encounter
--- OUTSIDE RECORDS SUMMARY | 2024-03-26 16:33 | XMS_ITS | Encounter Summary ---
[place] [address] Care Team Providers Care Densitometrist Name Role Phone Terrance Alves MD Primary Care Provider [phone] Encounter Details Date Type Department Care Team (Latest Contact Info) Description 04/18/2022 Travel Social History Tobacco Use Types Packs/Day [...] on filedocumented in this encounter Care Teams Densitometrist Relationship Specialty Start Date End Date Terrance Alves MD [address] [place] [address] PCP - General Internal Medicine 01/12/18 documented as of this encounter
--- OUTSIDE RECORDS SUMMARY | 2024-03-26 16:33 | XMS_ITS | Clinical Summary ---
Author Organization [facility] Address [address] [place] [address] Care Team Providers Care Poultry Farmer Egg Name Role Phone Terrance Alves MD Primary Care Provider [phone] Allergies No known active allergies Medications Medication Sig Dispensed Refills Start Date End Date Status EPINEPHrine (EPIPEN JR) 0.15 mg/0.3 mL injection Inject 0.15 mg into the muscle once as needed. Active prednisolon/gatiflox/b romfenac (PREDNISOL [id number] OPHTHALMIC) Place 1 Drop into the left eye 4 times daily. Active Surgical History Surgery Date Site/Laterality Comments JOINT REPLACEMENT Left ankle surgery as a child Medical History Medical History Date Comments Cataract Eye trauma hit in the eye w ith bungee cord when he was 6 Family History Medical History Relation Comments No Known Father No Known Mother Cataract Paternal Grandmother Relation Status Comments Father Mother Paternal Grandmother blind, not sure of cause Social History Tobacco Use Types Packs/Day Years Used Date Smoking Tobacco: Never Smokeless Tobacco: Never Interpersonal Safety Answer Date Record ed Physically Hurt Never 01/12/2020 Verbally Threaten Not on file 01/12/2020 Sex and Gender Information Value Date Recorded Sex Assigned at Not on file Gender Identity Not on file Sexual Orientation Not on file Obstetrics History Plan of Treatment Health Maintenance Due Date Last Done Comments Hepatitis B Vaccine (1 of 3 - 19+ 3-dose series) 05/28 COVID-19 Vaccine (2022-24 season) 2023 Hepatitis C Screen Completed 05/12/2021 Procedures Procedure Name Priority Date/Time Associated Diagnosis Comments HEPATITIS C AB W REFLEX TO HCV RNA BY PCR Today 05/12/2021 12:35 EST from Last 3 Months or Most Recently Relevant to Health Maintenance Results * HEPATITIS C AB W REFLEX TO HCV RNA BY PCR (05/12/2021 12:35 EST) Hep C Antibody Negative Negative 05/13/2021 11:14 EST [facility] Blood VENOUS BLOOD / Unknown 05/12/2021 12:35 EST 05/12/2021 22:03 EST Provider Outr Resulting Lab CHEMISTRY & BLOOD GAS ORDERABLES [facility] [address] [place] [address] from Last 3 Months or Most Recently Relevant to Health Maintenance Care Teams Poultry Farmer Egg Relationship Specialty Start Date End Date Terrance Alves MD [address] [place], [place] [id number] PCP - General 06/15/18
--- OUTSIDE RECORDS SUMMARY | 2024-03-26 16:33 | XMS_ITS | Encounter Summary ---
Author Organization [facility] Address [address] [place] [address] Care Team Providers Care Glue Reel Operator Name Role Phone Unavailable Primary Care Provider Unavailabl e Encounter Details Date Type Department Care Team (Latest Contact Info) Description 06/06/2000 9:59 EST - 06/07/2000 11:59 EST Hospital Encounter [facility] Emergency Department - [facility] [address] [place] [address] Emergency, Default, MD Discharge Disposition: Home or Self Care Social History Tobacco Use Types Packs/Day Years Used Date Smoking Tobacco: Never Assessed Sex and Gender Information Value Date Recorded Sex Assigned at Not on file Gender Identity Not on file Sexual Orientation Not on file documented as of this encounter Discharge Disposition Disposition Code Departure Means Destination Home or Self Care documented in this encounter Plan of Treatment Not on file documented as of this encounter Visit Diagnoses Not on filedocumented in this encounter
--- OUTSIDE RECORDS SUMMARY | 2024-03-26 16:33 | XMS_ITS | Encounter Summary ---
[place] [address] Care Team Providers Care Insurance Underwriter Name Role Phone Terrance Alves MD Primary Care Provider [phone] Reason for Referral * Diagnostic Test (Routine) - Closed Specialty Diagnoses / Procedures Referred By Contac t Referred To Contact Radiology Diagnoses Syncope, unspecified syncope type Procedures NM Exercise Stress Myocardial Perfusion Baldo Wells MD [facility] [place] [address] [place] [address] Referral ID Status Reason Start Date Expiration Date V isits Requested Visits Authorized [id number] Closed Specialty Service Requested 01/29/2018 04/29/2018 4 4 Reason for Visit * Diagnostic Test (Routine) - Closed Specialty Diagnoses / Procedures Referred By Contac t Referred To Contact Radiology Diagnoses Syncope, unspecified syncope type Procedures NM Exercise Stress Myocardial Perfusion Baldo Wells MD [facility] [place] [address] [place] [address] Referral ID Status Reason Start Date Expiration Date V isits Requested Visits Authorized [id number] Closed Specialty Service Requested 01/29/2018 04/29/2018 4 4 Encounter Details Date Type Department Care Team (Latest Contact Info) Description 02/05/2018 9:42 AM EDT Hospital Encounter [place] [address] Baldo Wells MD [facility] [place] [address] Syncope, unspecified syncope type Discharge Disposition: Home Social History Tobacco Use [...] this encounter Results * NM Exercise Stress Myocardial Perfusion (02/05/2018 [...] at 02/05/2018 2:26 PM Baldo Wells MD [facility] [place] [place] ORDERABLES documented in this encounter Visit Diagnoses Diagnosis Syncope, unspecified syncope type documented in this encounter Administered Medications Inactive Administered Medications - up to 3 most recent administrations Medication Order MAR Action Action Date Dose Rate Site technetium (Tc-99m) sestamibi injection 7.2 mCi 7.2 mCi, Intravenous, ONCE PRN, 1 dose, Starting on Mon02/05/18 at 0955, Until Mon02/05/18 at 0956, Per Protocol, Routine Given 02/05/2018 9:56 AM EDT 7.2 mCi documented in this encounter Care Teams Insurance Underwriter Relationship Specialty Start Date End Date Terrance Alves MD [address] [place] [address] PCP - General Internal Medicine 01/12/18 documented as of this encounter
--- OUTSIDE RECORDS SUMMARY | 2024-03-26 16:33 | XMS_ITS | Encounter Summary ---
Author Organization [facility] [place] [address] Care Team Providers Care Credit Professional Name Role Phone Terrance Alves MD Primary Care Provider [phone] Encounter Details Date Type Department Care Team (Late st Contact Info) Description 03/08/2022 [place] [address] Jayda Beckham MD [facility] [address] [address] Social History Tobacco Use Types Packs/Day Years Used Date Smoking Tobacco: Former Cigarettes Q uit: 2001 Smokeless Tobacco: Never Sex and Gender Information Value Date Recorded Sex Assigned at Not on file Gender Identity Not on file Sexual Orientation Not on file documented as of this encounter Progress Notes * Jayda Beckham MD - 03/08/2022 10:18 AM EDT Custom build for VIT: START OVER USING CUSTOM BUILD BELOW: Advance weekly. Concentration: 0.001mcg/mL HB and W (MV 0.003mcg/mL) 1) Dose 0.1mL 2) Dose 0.3mL 3) Dose 0.5mL 4) Dose 0.8mL Concentration: 0.01mcg/mL HB and W (MV 0.03mcg/mL) 5) Dose 0.1mL 6) Dose 0.5mL Concentration: 0.1mcg/mL HB and W (MV 0.3mcg/mL) 7) Dose 0.1mL 8) Dose 0.5mL Then resume regular build-up per protocol. Jayda Beckham MD documented in this encounter Plan of Treatment Not on file documented as of this encounter Visit Diagnoses Not on filedocumented in this encounter Care Teams Credit Professional Relationship Specialty Start Date End Date Terrance Alves MD [address] [place] [id number] PCP - General Internal Medicine 01/12/18 documented as of this encounter
--- OUTSIDE RECORDS SUMMARY | 2024-03-26 16:33 | XMS_ITS | Encounter Summary ---
Author Organization [facility] [place] [address] Care Team Providers Care Linux Admin Engineer Name Role Phone Terrance Alves MD Primary Care Provider [phone] Encounter Details Date Type Department Care Team (Late st Contact Info) Description 01/05/2022 [place] [address] Jayda Beckham MD [facility] [address] [address] Social History Tobacco Use Types Packs/Day Years Used Date Smoking Tobacco: Former Cigarettes Q uit: 2001 Smokeless Tobacco: Never Sex and Gender Information Value Date Recorded Sex Assigned at Not on file Gender Identity Not on file Sexual Orientation Not on file documented as of this encounter Progress Notes * Jayda Beckham MD - 01/05/2022 11:12 AM EDT VENOM IMMUNOTHERAPY PRESCRIPTION AND PREPARATION NOTE [facility] Baldo Carty Jr. : 1980 Instructions: - Must take cetirizine 10mg, levocetirizine 5mg, loratadine 10mg, or fexofenadine 180mg the morningof injection or at least one hour before. - Do not use beta-blockers or BYRON-inhibitors while on immunotherapy. This is a contraindication. - Wait time per protocol, but at least 30 minutes. - Avoid vigorous exercise on the day of the shot. PATIENT SPECIFIC INSTRUCTIONS: EPIPEN: [X] must bring epipen to immunotherapy appointment [] epipen not required ASTHMA SCREENING: [] ACT score of 20 or greater is required prior to shot. Administer ACT prior to every shot; if ACTis 19 or less, discuss with MD prior to giving shot. [X] ACT not required; use questionnaire to screen for breathing issues VIAL #1 Allergen and concentration Amount (ml) Final Concentration Mixed Vespids 1 Vial 300 mcg/ml Diluent Total ml New RX X Refill Dilutions: 10 fold X 100 fold X 1,000 fold X Starting Vial: Per protocol Starting Dose: Per protocol Vial #2 Allergen and concentration Amount (ml) Final Concentration Wasp 1 Vial 100 mcg/ml Diluent Total ml New RX X Refill Dilutions: 10 fold X 100 fold X 1,000 fold X Starting Vial: Per protocol Starting Dose: Per protocol Vial #3 Allergen and concentration Amount (ml) Final Concentration Honey Bee 1 Vial 100 mcg/ml Diluent Total ml New RX X Refill Dilutions: 10 fold X 100 fold X 1,000 fold X Starting Vial: Per protocol Starting Dose: Per protocol Sent To: Date mailed: Prepared by: on: Checked by Jayda Beckham MD on: For billing purposes 5 ml vials contain 10 doses; 10 ml vials contain 20 doses. Jayda Beckham MD 01/05/2022 11:12 AM documented in this encounter Plan of Treatment Not on file documented as of this encounter Visit Diagnoses Not on filedocumented in this encounter Care Teams Linux Admin Engineer Relationship Specialty Start Date End Date Terrance Alves MD [address] [place] [address] PCP - General Internal Medicine 01/12/18 documented as of this encounter
--- OUTSIDE RECORDS SUMMARY | 2024-03-26 16:33 | XMS_ITS | Referral Summary ---
Author Organization [facility] Address [address] [place] [address] Care Team Providers Care Credit Adjuster Name Role Phone Terrance Alves MD Primary Care Provider [phone] Allergies No known active allergies Medications Medication Sig Dispensed Refills Start Date End Date Status EPINEPHrine (EPIPEN JR) 0.15 mg/0.3 mL injection Inject 0.15 mg into the muscle once as needed. Active prednisolon/gatiflox/b romfenac (PREDNISOL [id number] OPHTHALMIC) Place 1 Drop into the left eye 4 times daily. Active Social History Tobacco Use Types Packs/Day Years Used Date Smoking Tobacco: Never Smokeless Tobacco: Never Interpersonal Safety Answer Date Record ed Physically Hurt Never 01/12/2020 Verbally Threaten Not on file 01/12/2020 Sex and Gender Information Value Date Recorded Sex Assigned at Not on file Gender Identity Not on file Sexual Orientation Not on file Functional Status Functional Status Response Date of [...] concentrating, remembering, or making decisions? No 06/15/2018 Plan of Treatment Not on file Procedures Procedure Name Priority Date/Time Associated Diagnosis Comments HEPATITIS C AB W REFLEX TO HCV RNA BY PCR Today 05/12/2021 12:35 EST from Last 3 Months or Most Recently Relevant to Health Maintenance Results * HEPATITIS C AB W REFLEX TO HCV RNA BY PCR (05/12/2021 12:35 EST) Hep C Antibody Negative Negative 05/13/2021 11:14 EST [facility] Blood VENOUS BLOOD / Unknown 05/12/2021 12:35 EST 05/12/2021 22:03 EST Provider Outr Resulting Lab CHEMISTRY & BLOOD GAS ORDERABLES [facility] [address] [place] [address] from Last 3 Months or Most Recently Relevant to Health Maintenance Care Teams Credit Adjuster Relationship Specialty Start Date End Date Terrance Alves MD [address] [place], [place] [id number] PCP - General 06/15/18
--- OUTSIDE RECORDS SUMMARY | 2024-03-26 16:33 | XMS_ITS | Encounter Summary ---
Author Organization [facility] [place] [address] Care Team Providers Care Merchandise For Resale Purchasing Agent Name Role Phone Terrance Alves MD Primary Care Provider [phone] Encounter Details Date Type Department Care Team (Late st Contact Info) Description 01/06/2022 [place] [id number] Evie Lloyd, RN Social History Tobacco Use Types Packs/Day Years Used Date Smoking Tobacco: Former Cigarettes Q uit: 2001 Smokeless Tobacco: Never Sex and Gender Information Value Date Recorded Sex Assigned at Not on file Gender Identity Not on file Sexual Orientation Not on file documented as of this encounter Miscellaneous Notes * Telephone Encounter - Evie Lloyd, RN - 01/06/2022 11:43 AM EDT 01/06/22 @ 1145 Called [phone] to go over VIT new start instructions. Unable to leave due to full mailbox. Will send [facility] message of instructions and for patient to call us at earliest convenience. VENOM IMMUNOTHERAPY PRESCRIPTION AND PREPARATION NOTE [facility] Baldo Carty Jr. : 1980 ?? Instructions: - Must take cetirizine 10mg, levocetirizine 5mg, loratadine 10mg, or fexofenadine 180mg the morningof injection or at least one hour before. - Do not use beta-blockers or BYRON-inhibitors while on immunotherapy. This is a contraindication. - Wait time per protocol, but at least 30 minutes. - Avoid vigorous exercise on the day of the shot. ?? PATIENT SPECIFIC INSTRUCTIONS: EPIPEN: [X] must bring epipen to immunotherapy appointment [] epipen not required ASTHMA SCREENING: [] ACT score of 20 or greater is required prior to shot. Administer ACT prior to every shot; if ACTis 19 or less, discuss with MD prior to giving shot. [X] ACT not required; use questionnaire to screen for breathing issues ?? VIAL #1 Allergen and concentration Amount (ml) Final Concentration Mixed Vespids 1 Vial 300 mcg/ml ? Diluent ? Total ml ? New RX X Refill ? Dilutions: 10 fold X 100 fold X 1,000 fold X ?? Starting Vial: Per protocol Starting Dose: Per protocol ? Vial #2 Allergen and concentration Amount (ml) Final Concentration Wasp 1 Vial 100 mcg/ml ? Diluent ? Total ml ? New RX X Refill ? Dilutions: 10 fold X 100 fold X 1,000 fold X ?? Starting Vial: Per protocol Starting Dose: Per protocol ? Vial #3 ?? Allergen and concentration Amount (ml) Final Concentration Honey Bee 1 Vial 100 mcg/ml ? Diluent ? Total ml ? New RX X Refill ? Dilutions: 10 fold X 100 fold X 1,000 fold X ?? Starting Vial: Per protocol Starting Dose: Per protocol ? Sent To: ? Date mailed: Prepared by: on: Checked by Jayda Beckham MD on: For billing purposes 5 ml vials contain 10 doses; 10 ml vials contain 20 doses. ?? Jayda Beckham MD 01/05/2022 11:12 AM documented in this encounter Plan of Treatment Not on file documented as of this encounter Visit Diagnoses Not on filedocumented in this encounter Care Teams Merchandise For Resale Purchasing Agent Relationship Specialty Start Date End Date Terrance Alves MD [address] [place] [address] PCP - General Internal Medicine 01/12/18 documented as of this encounter
--- OUTSIDE RECORDS SUMMARY | 2024-03-26 16:33 | XMS_ITS | Encounter Summary ---
[place] [address] Care Team Providers Care Rough Rib Grader Name Role Phone Terrance Alves MD Primary Care Provider [phone] Reason for Referral * Allergy Testing (Routine) - Specialty Diagnoses / Procedures Referred By Contac t Referred To Contact Diagnoses Insect sting allergy, current reaction, accidental or unintentional, initial encounter Jayda Beckham MD [facility] [address] [facility] [address] Referral ID Status Reason Start Date Expiration Date V isits Requested Visits Authorized [id number] Consult, Test & Treat 08/31/2018 02/27/2019 1 1 Reason for Visit * Reason Comments Establish Care * Consultation (Routine) - Closed Specialty Diagnoses / Procedures Referred By Contac t Referred To Contact Allergy Diagnoses SYNCOPE AFTER HORNET STINGS Valery Coleman APRN [address] [place] [address] [facility] All[facility] [address] [place] [phone] Referral ID Status Reason Start Date Expiration Date V isits Requested Visits Authorized [id number] Closed Consult, Test & Treat [facility] 01/12/2018 01/12/2019 1 1 Encounter Details Date Type Department Care Team (Late st Contact Info) Description 08/31/2018 9:00 AM EDT [place] [address] Jayda Beckham MD [facility] DEPT [place] [phone] Insect sting allergy, current reaction, accidental or unintentional, initial encounter; Acute urticaria; Anaphylaxis, initial encounter; Food intolerance Social History Tobacco Use Types Packs/Day Years Used Date Smoking Tobacco: Former Cigarettes Q uit: 2001 Smokeless Tobacco: Never Sex and Gender Information Value Date Recorded Sex Assigned at Not on file Gender Identity Not on file Sexual Orientation Not on file documented as of this encounter Last Filed Vital Signs Vital Sign Reading Time Taken Comments Blood Pressure 126/77 08/31/2018 8:50 AM EDT Pulse 73 08/31/2018 8:50 AM EDT Temperature - - Respiratory Rate - - Oxygen Saturation 99% 08/31/2018 8:50 AM EDT Inhaled Oxygen Concentration - - Weight 88.5 kg (195 lb) 08/31/2018 8:50 AM EDT Height 177.8 cm (5' 10) 08/31/2018 8:50 AM EDT Body Mass Index 27.98 08/31/2018 8:50 AM EDT documented in this encounter Patient Instructions * Patient Instructions* Jayda Beckham MD - 08/31/2018 9:00 AM EDT Allergy testing: positive to yellow jacket, yellow hornet, white hornet, wasp. Negative to honeybee - get blood test to screen for mastocytosis and confirm negative honeybee test - Carry epipen at all times Allergy shots for insect venom reduce the risk of a severe reaction from 50-60% to less than 5%. I recommend allergy shots for insect venom due to the severity of your reaction, which included loss of consciousness. Since you travel a lot, a holley desensitization would be the best approach. We do not do holley desensitizations in our clinic but it can be done at [facility]. I can place a referral for you to consult with them. Insect avoidance: - Avoid preparing food, grilling, and eating outdoors - Avoid flowering plants - Avoid drinking from straws, cans, or bottles outdoors - stinging insects can crawl into these - Remove fallen fruit and pet feces from property - Cover trashcans - Watch for nests in bushes, on eaves, in attics, or on the ground when mowing - Always wear shoes outdoors and avoid wearing sandals - Do not run or flail arms when near stinging insects - Do not touch insects (for example, floating on the surface of a pool) - Wear long pants, long sleeve shirts, socks, shoes, head coverings, and gloves when working outdoors - Have known nests removed by professionals - Have insecticide for stinging insects on hand to kill them from a distance Drug safety: - avoid beta blockers and BYRON inhibitors - these can worsen allergic reactions to insects General: - carry an epipen at all times - wear a medic alert bracelet indicating your allergy For foods: - gastrointestinal symptoms are more consistent with intolerance, not allergy. There is no test forintolerance and the only way to identify triggers is by trial and error - get blood test for macadamia nut, which caused hives Return in 6 months unless problems sooner documented in this encounter Progress Notes * Jayda Beckham MD - 08/31/2018 9:00 AM EDT CC: insect sting reaction HPI: Baldo Carty Jr. is a 38 y.o. male with no significant PMH presenting for evaluation of insect sting reaction at the request of Valery Coleman. The patient reports that he was stung by Hornets in January. He was stung at least 3 times in his axilla and maybe a few times on his side as well. About 20- 30 minutes after this he developed ringing in his ears, diaphoresis, dizziness, and loss of consciousness. He did not have a rash. He states that he could breathe but it was shallow breaths and he felt like he did not need to breathe and that he was very out of it. This was a strange sensation to him. The patient reportedly woke up in the ambulance after syncopizing but did not get epinephrine. 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 He canbe stung up to 30 times a day by bees. He has been stung by bees since this episode and has not hadany reactions to bee stings specifically. He has not been stung by hornets since then. He does carry an EpiPen now. He is not currently taking any medications including blood pressure medications. He has no other known allergies but reports that once he developed hives on his chest after eating macadamia nuts. He eats other tree nuts without any problems. 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 He states that if he varies from his normal diet he can develop diarrhea, constipation, and cramps. There is no specific food that triggers this. He states that when he eats dairy he can develop a rash on his face the next day which will last a few weeks. The patient travels a lot for his work for [employer]. 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 [place] REVIEWED ED notes from patient's reaction. They note that the patient did not have signs of anaphylaxis including airway compromise, significant lesions at the site of the sting. He was noted to have a mild heart murmur with a new right bundle branch block that was incomplete. He was recommended to follow-up with cardiology. He received 2 L of IV fluids they felt his symptoms were consistent with vasovagal syncope secondary to hymenoptera sting. He had normal pulse, respiratory rate, blood pressure throughout stay. ROS is per HPI otherwise negative. Patient Active Problem List Diagnosis Code ??? Fainting R55 Past Medical History: Diagnosis Date ??? Insect sting allergy, current reaction History reviewed. No pertinent surgical history. ??? EPINEPHrine 0.3 mg/0.3 mL Auto-Injector No Known Allergies Family History Problem Relation Age of Onset ??? Myocardial Infarction Paternal Grandfather Social History Socioeconomic History ??? Marital status: Spouse name: Not on file ??? Number of children: Not on file ??? Years of education: Not on file ??? Highest education level: Not on file Occupational History ??? Not on file Social Needs ??? Financial resource strain: Not on file ??? Food insecurity: Worry: Not on file Inability: Not on file ??? Transportation needs: Medical: Not on file Non-medical: Not on file Tobacco Use ??? Smoking status: Former Smoker Types: Cigarettes Last attempt to quit: 2002 Years since quittin.2 ??? Smokeless tobacco: Never Used Substance and Sexual Activity ??? Alcohol use: Not on file ??? Drug use: Never ??? Sexual activity: Not on file Lifestyle ??? Physical activity: Days per week: Not on file Minutes per session: Not on file ??? Stress: Not on file Relationships ??? Social connections: Talks on phone: Not on file Gets together: Not on file Attends lutheran service: Not on file Active member of club or organization: Not on file Attends meetings of clubs or organizations: Not on file Relationship status: Not on file ??? Intimate partner violence: Fear of current or ex partner: Not on file Emotionally abused: Not on file Physically abused: Not on file Forced sexual activity: Not on file Other Topics Concern ??? Not on file Social History Narrative ??? Not on file ENVIRONMENTAL HISTORY Patient sets [place] Patient is not exposed to chemicals or hazardous fumes at work Lives in a house with Forced air heat. There is no central a/c. There is not a woodstove. The patient has seen no pests around the home. There is no known mold or mildew. The patient does not live leti farm. The patient is exposed to farm animals. Pets: 1 cat, 1 dog, 100,000+ bees PHYSICAL EXAM: BP 126/77 Pulse 73 Ht 177.8 cm (5' 10) Wt 88.5 kg (195 lb) SpO2 99% BMI 27.98 kg/m?? Gen: AAOx3, no acute distress HEENT: Tympanic membranes clear, no lesions, erythema, or drainage. Conjunctiva not injected. Nasalpassages show pink turbinates bilaterally. OP clear without erythema or cobblestoning. NECK: supple, no lymphadenopathy CVS: RRR, no m/r/g LUNGS: CTAB, no wheezing or rales ABD: soft, non-tender, non-distended SKIN: no rashes EXTREMITIES: warm and well-perfused, no edema SKIN TESTING: VENOM SKIN TESTING SPT @ 1ug/mL Histamine (8, 30) Saline (0, 3) Honeybee (-) Yellow jacket (-) Yellow hornet (-) White hornet (-) Wasp (-) ID Saline (6, 3) @ 0.1ug/mL Honeybee (-) Yellow jacket (4, 5) Yellow hornet (7, 20) White hornet (6, 15) Wasp (8, 25) @ 1ug/mL Honeybee (-) See scanned document for detailed wheal and flare results if not already indicated above. ASSESSMENT AND PLAN: 38 y.o. male with episode of syncope, preceded by shallow breathing, brief mental status change, diaphoresis, and tinnitus after insect sting. Allergy testing: positive to yellow jacket, yellow hornet, white hornet, wasp. Negative to honeybee. Previously and subsequently tolerated bee stings. Whileit is possible that the patient's symptoms represent vasovagal syncope secondary to the insect sting, I feel there is enough evidence that this is a true allergy that it should be treated as such. The patient has received numerous stings throughout his life from honeybees without any symptoms like this. Suddenly developing a vasovagal response to a hornet seems unlikely. While sting allergies areusually accompanied by rash, this is not always the case. When no rash is present, recognition of anaphylaxis can be delayed and increases the risk of a life-threatening reaction. [place] to emergency medical services. He has positive testing to hor nets, yellow jacket, and wasp today. While the general population can certainly have positive testing without clinical allergy, in the setting of his history I would consider this further evidence that his reaction represents an insect sting allergy rather than vasovagal response. Pt leaving soon for several weeks. Out of town about 50% of the time, often weeks at a time. This would not be amenable to a VIT build up and I think the only way to realistically desensitize him would be to do a holley or ultrarush, which we don't offer. Would have to be done at [facility]. After desens wecan administer maintenance injections, though. Pt going to weigh options, not clear if he plans to pursue desens yet or not. 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 Counseled average time to cardiovascular collapse in fatal sting anaphylaxis is only 15 minutes, which is why desens can be life-saving. Counseled that the risk of a severe reaction leading to loss of consciousness again approaches 50-60% at least, VIT would reduce risk to less than 5%. PLAN: - tryptase to screen for mastocytosis and confirm negative honeybee test - Carry epipen at all times - avoid beta blockers and BYRON inhibitors - these can worsen allergic reactions to insects - wear a medic alert bracelet indicating your allergy - referral to [facility] to discuss holley desens - Provided insect avoidance measures. For foods: - gastrointestinal symptoms are more consistent with intolerance, not allergy. There is no test forintolerance and the only way to identify triggers is by trial and error - sent blood test for macadamia nut, which caused hives Rec RTO yearly to check in, or in 6 months if he decides to do shots ADDENDUM: honeybee IgE negative. Tryptase WNL. Macadamia nut negative. Recommended food challenge to macadamia nut if interested in eating again. Relayed results via [facility]. - ELR 09/03/2018 3:36 PM Jayda Beckham MD Orders Placed This Encounter Procedures ??? Tryptase ??? Macadamia Nut IgE ??? Venom, Honeybee IgE ??? Referral to Allergy documented in this encounter Plan of Treatment Scheduled Referrals Name Type Priority Associated Diagnoses Orde r Schedule Referral to Allergy Outpatient Referral Routine Insect sting allergy, current reaction, accidental or unintentional, initial encounter Ordered: 08/31/2018 documented as of this encounter Procedures Procedure Name Priority Date/Time Associated Diagnosis Comments TRYPTASE Routine 08/31/2018 11:38 AM EDT Insect sting allergy, current reaction, accidental or unintentional, initial encounter VENOM, HONEYBEE IGE Routine 08/31/2018 1 1:38 AM EDT Insect sting allergy, current reaction, accidental or unintentional, initial encounter MACADAMIA NUT IGE Routine 08/31/2018 11: 38 AM EDT Acute urticaria ALLERGY SCAN 08/31/2018 12:00 AM EDT documented in this encounter Results * Venom, Honeybee IgE (08/31/2018 11:38 AM EDT) Honeybee, IgE <0.35 kU/L [facility] Comment: Reference Ranges <0.35 kU/L [...] indicative of very high level sensitization Blood specimen (specimen) 08/31/2018 11:38 AM EDT 08/31/2018 12:51 PM EDT Narrative Resulting Agency Comment Spec In Lab Jayda Beckham MD IMMUNOLOGY ORDERABLE S [facility] [place] [address] * Macadamia Nut IgE (08/31/2018 11:38 AM EDT) Macadamia Nut, IgE <0.35 kU/L [facility] Comment: Reference Ranges <0.35 kU/L [...] indicative of very high level sensitization Blood specimen (specimen) 08/31/2018 11:38 AM EDT 08/31/2018 12:51 PM EDT Narrative Resulting Agency Comment Spec In Lab Jayda Beckham MD IMMUNOLOGY ORDERABLE S Performing Organization Address [facility]/ZIP Co de Phone Number [facility] [place] [address] * Tryptase (08/31/2018 11:38 AM EDT) Tryptase 2.3 <=11.1 ng/mL [facility] Comment: Total tryptase concentrations that are persistently greater than 20 ng/mL may be consistent with systemic mastocytosis. Blood specimen (specimen) 08/31/2018 11:38 AM EDT 08/31/2018 12:51 PM EDT Narrative Resulting Agency Comment Spec In Lab Jayda Beckham MD CHEMISTRY ORDERABLES Performing Organization Address [facility] Co de Phone Number [facility] [place] [address] * SCAN DOC: ALLERGY (08/31/2018 12:00 AM EDT) Narrative 08/31/2018 12:00 AM EDT Ordered by an unspecified provider. Scanning Provider MEDIA MGR SCAN EXT O RDR/RSLT documented in this encounter Visit Diagnoses Diagnosis Insect sting allergy, current reaction, accidental or unintentional, initial encounter Acute urticaria Other specified urticaria Anaphylaxis, initial encounter Food intolerance Other specified intestinal malabsorption documented in this encounter Care Teams Rough Rib Grader Relationship Specialty Start Date End Date Terrance Alves MD [address] [place] [address] PCP - General Internal Medicine 01/12/18 documented as of this encounter
--- OUTSIDE RECORDS SUMMARY | 2024-03-26 16:33 | XMS_ITS | Encounter Summary ---
Author Organization [facility] Address [address] [place] [address] Care Team Providers Care Mathematics Improvement Teacher Name Role Phone Terrance Alves MD Primary Care Provider [phone] Encounter Details Date Type Department Care Team (Late st Contact Info) Description 05/12/2021 Lab Requisition [facility] Pathology & Laboratory Medicine - [address] [address] Outr Resulting Lab, Provider Social History Tobacco [...] Procedure Name Priority Date/Time Associated Diagnosis Comments SYPHILIS SEROLOGY Routine 05/12/2021 12: 35 EST documented in this encounter Results * SYPHILIS SEROLOGY (05/12/2021 12:35 EST) Syphilis Serology Negative Negative 05/13/2021 9:37 EST [facility] Blood VENOUS BLOOD / Unknown 05/12/2021 12:35 EST 05/12/2021 22:03 EST Provider Outr Resulting Lab IMMUNOLOGY A ND SEROLOGY ORDERABLES Performing Organization Address City/State/[facility] Co de Phone Number [facility] [address] [place] [address] documented in this encounter Visit Diagnoses Not on filedocumented in this encounter Care Teams Mathematics Improvement Teacher Relationship Specialty Start Date End Date Terrance Alves MD [address] [place] [address] PCP - General 06/15/18 documented as of this encounter
--- OUTSIDE RECORDS SUMMARY | 2024-03-26 16:33 | XMS_ITS | Encounter Summary ---
[place] [address] Care Team Providers Care Fur Blower Operator Name Role Phone Terrance Alves MD Primary Care Provider [phone] Encounter Details Date Type Department Care Team (Latest Contact Info) Description 03/22/2022 2:00 PM EDT [place] [id number] Toxic effect of venom of bees, accidental [...] Sign Reading Time Taken Comments Blood Pressure 114/70 03/22/2022 1:46 PM EDT Pulse 70 03/22/2022 1:46 PM EDT Temperature - - Respiratory Rate - - Oxygen Saturation 97% 03/22/2022 1:46 PM EDT Inhaled Oxygen Concentration - - Weight - - Height - - Body Mass Index - - documented in this encounter Progress Notes * Haylee Sosa RN - 03/22/2022 2:00 PM EDT Patient: Baldo Carty . 1980 [id number] Documentation of screening pre-immunotherapy questionnaire responses See [...] the past 24 hrs: Pulse BP SpO2 03/22/22 1346 70 114/70 97 % Injections given: Building (STOCK VIALS) Extract: Mixed Vespid Dilution: 0.003mcg/mL Dose: 0.3mL Site: right upper arm subcutaneous upper Rxn: none EXP: 03/22/22 LOT #: [id number] LAYER OFF:Catatier Extract: Wasp Dilution 0.001mcg/mL Dose: 0.3mL Site: left upper arm subcutaneous upper Rxn: < palm EXP: 03/22/22 LOT #: [id number] LAYER OFF:JasonisterStier Extract: Honeybee Dilution: 0.001mcg/mL Dose: 0.3mL Site: left upper arm subcutaneous lower Rxn: < palm EXP: 03/22/22 LOT#: [id number] LAYER OFF:Catatier Patient was observed here in the waiting area for 30 minutes. No adverse side effects were noted. Patient ambulated from clinic in stable condition. documented in this encounter Plan of Treatment Not on file documented as of this encounter Visit Diagnoses Diagnosis Toxic effect of venom of bees, accidental (unintentional), initial encounter documented in this encounter Care Teams Fur Blower Operator Relationship Specialty Start Date End Date Terrance Alves MD [address] [place] [address] PCP - General Internal Medicine 01/12/18 documented as of this encounter
--- OUTSIDE RECORDS SUMMARY | 2024-03-26 16:33 | XMS_ITS | Encounter Summary ---
[place] [address] Care Team Providers Care Academic Physician Name Role Phone Terrance Alves MD Primary Care Provider [phone] Encounter Details Date Type Department Care Team (Latest Contact Info) Description 04/25/2022 Travel Social History Tobacco Use Types Packs/Day [...] on filedocumented in this encounter Care Teams Academic Physician Relationship Specialty Start Date End Date Terrance Alves MD [address] [place] [address] PCP - General Internal Medicine 01/12/18 documented as of this encounter
--- OUTSIDE RECORDS SUMMARY | 2024-03-26 16:33 | XMS_ITS | Encounter Summary ---
Author Organization [facility] [place] [address] Care Team Providers Care Grain Elevator Clerk Name Role Phone Terrance Alves MD Primary Care Provider [phone] Reason for Visit * Diagnostic Test (Routine) - Closed Specialty Diagnoses / Procedures Referred By Contac t Referred To Contact Radiology Diagnoses Syncope, unspecified syncope type Procedures NM Exercise Stress Myocardial Perfusion Baldo Wells MD [facility] [place] [address] [place] [address] Referral ID Status Reason Start Date Expiration Date V isits Requested Visits Authorized [id number] Closed Specialty Service Requested 01/29/2018 04/29/2018 4 4 Encounter Details Date Type Department Care Team (Latest Contact Info) Description 02/05/2018 9:42 AM EDT Hospital En[place] [address] [facility] [place] [address] Discharge Disposition: Home Social History Tobacco Use [...] at 02/05/2018 2:26 PM Baldo Wells MD IMG NM ORDERABLES documented in this encounter Visit Diagnoses Not on filedocumented in this encounter Care Teams Grain Elevator Clerk Relationship Specialty Start Date End Date Terrance Alves MD [address] [place] [address] PCP - General Internal Medicine 01/12/18 documented as of this encounter
--- OUTSIDE RECORDS SUMMARY | 2024-03-26 16:33 | XMS_ITS | Encounter Summary ---
Author Organization [facility] Address [address] [place] [address] Care Team Providers Care Fire Pot Operator Name Role Phone Unavailable Primary Care Provider Unavailabl e Encounter Details Date Type Department Care Team (Latest Contact Info) Description 10/17/2000 20:52 EDT Hospital Encounter [facility] Emergency Department - [facility] [address] [place] [address] Emergency, Default, MD Discharge Disposition: Home or [...]
--- OUTSIDE RECORDS SUMMARY | 2024-03-26 16:33 | XMS_ITS | Encounter Summary ---
[place] [address] Care Team Providers Care Cook School Cafeteria Name Role Phone Terrance Alves MD Primary Care Provider [phone] Encounter Details Date Type Department Care Team (Latest Contact Info) Description 04/18/2022 9:15 AM EST Clinical [place] [phone] Toxic effect of venom of bees, accidental [...] Reading Time Taken Comments Blood Pressure 118/78 04/18/2022 9:07 AM EST Pulse 64 04/18/2022 9:07 AM EST Temperature - - Respiratory Rate - - Oxygen Saturation 99% 04/18/2022 9:07 AM EST Inhaled Oxygen Concentration - - Weight - - Height - - Body Mass Index - - documented in this encounter Progress Notes * Haylee Sosa RN - 04/18/2022 9:15 AM EST Patient: Baldo Carty . 1980 [id number] Documentation of screening pre-immunotherapy questionnaire responses See [...] VIALS) Extract: Mixed Vespid Dilution: 0.03mcg/mL Dose: 0.5mL Site: right upper arm subcutaneous upper Rxn: < palm EXP: 04/18/22 LOT #: [id number] VENEER SORTER:HollisterStier Extract: Wasp Dilution 0.01mcg/mL Dose: 0.5mL Site: left upper arm subcutaneous upper Rxn: < palm EXP: 04/18/22 LOT #: [id number] VENEER SORTER:HollisterStier Extract: Honeybee Dilution: 0.01mcg/mL Dose: 0.5mL Site: left upper arm subcutaneous lower Rxn: < palm EXP: 04/18/22 LOT#: [id number] VENEER SORTER:HollisterStier Patient was observed here in the waiting area for 30 minutes. No adverse side effects were noted. Patient ambulated from clinic in stable condition. documented in this encounter Plan of Treatment Not on file documented as of this encounter Visit Diagnoses Diagnosis Toxic effect of venom of bees, accidental (unintentional), initial encounter documented in this encounter Care Teams [employer] Cafeteria Relationship Specialty Start Date End Date Terrance Alves MD [address] [place] [address] PCP - General Internal Medicine 01/12/18 documented as of this encounter
--- OUTSIDE RECORDS SUMMARY | 2024-03-26 16:33 | XMS_ITS | Encounter Summary ---
[place] [address] Care Team Providers Care Hat Sizer Name Role Phone Terrance Alves MD Primary Care Provider [phone] Encounter Details Date Type Department Care Team (Late st Contact Info) Description 02/08/2018 External Results Cardiology at [address] [address] Gianfranco Reis, RN Social History Tobacco Use Types Packs/Day [...] on filedocumented in this encounter Care Teams Hat Sizer Relationship Specialty Start Date End Date Terrance Alves MD [address] [place] [address] PCP - General Internal Medicine 01/12/18 documented as of this encounter
--- OUTSIDE RECORDS SUMMARY | 2024-03-26 16:33 | XMS_ITS | Encounter Summary ---
[place] [address] Care Team Providers Care Court Administrator Name Role Phone Terrance Alves MD Primary Care Provider [phone] Encounter Details Date Type Department Care Team (Latest Contact Info) Description 03/11/2022 8:15 AM EDT Clinical [place] [phone] Toxic effect of venom of bees, accidental [...] Reading Time Taken Comments Blood Pressure 124/80 03/11/2022 8:32 AM EDT Pulse 71 03/11/2022 8:32 AM EDT Temperature - - Respiratory Rate - - Oxygen Saturation 97% 03/11/2022 8:32 AM EDT Inhaled Oxygen Concentration - - Weight - - Height - - Body Mass Index - - documented in this encounter Progress Notes * Haylee Sosa RN - 03/11/2022 8:15 AM EDT Patient: Baldo Carty . 1980 [id number] Documentation of screening pre-immunotherapy questionnaire responses See [...] adjustment: New dose and/or change in build: See custom build in notes Documentation of Injection: Baldo Carty Jr. has come into the Allergy Clinic for immunotherapy injections. Antihistamine taken as directed. Patient has required Epipen available, verified as current and with patient. yes Injections given per Dr. Beckham's orders. No data found. Injections given: Building (STOCK VIALS) Extract: Mixed Vespid Dilution: 0.003mcg/mL Dose: 0.1mL Site: left upper arm subcutaneous upper Rxn: < palm EXP: 03/11/22 LOT #: [id number] SOLUTION ENGINEER:HollisterStier Extract: Wasp Dilution 0.001mcg/mL Dose: 0.1mL Site: right upper arm subcutaneous upper Rxn: < palm EXP: 03/11/22 LOT #: [id number] SOLUTION ENGINEER:HollisterStier Extract: Honeybee Dilution: 0.001mcg/mL Dose: 0.1mL Site: right upper arm subcutaneous lower Rxn: < palm EXP: 03/11/22 LOT#: [id number] SOLUTION ENGINEER:HollisterStier Patient was observed here in the waiting area for 30 minutes. No adverse side effects were noted. Patient ambulated from clinic in stable condition. documented in this encounter Plan of Treatment Not on file documented as of this encounter Visit Diagnoses Diagnosis Toxic effect of venom of bees, accidental (unintentional), initial encounter documented in this encounter Care Teams Court Administrator Relationship Specialty Start Date End Date Terrance Alves MD [address] [place] [address] PCP - General Internal Medicine 01/12/18 documented as of this encounter
--- OUTSIDE RECORDS SUMMARY | 2024-03-26 16:33 | XMS_ITS | Encounter Summary ---
[place] [address] Care Team Providers Care First Helper Name Role Phone Terrance Alves MD Primary Care Provider [phone] Reason for Referral * Diagnostic Test (Routine) - Specialty Diagnoses / Procedures Referred By Contac t Referred To Contact Radiology Diagnoses Syncope, unspecified syncope type Procedures NM Exercise Stress CT Component Baldo Wells MD [facility] [place] [address] [place] [address] Referral ID Status Reason Start Date Expiration Date Visits Requested Visits Authorized [id number] Specialty Service Requested 01/29/2018 04/29/2018 4 4 Reason for Visit * Diagnostic Test (Routine) - Closed Specialty Diagnoses / Procedures Referred By Contac t Referred To Contact Radiology Diagnoses Syncope, unspecified syncope type Procedures NM Exercise Stress Myocardial Perfusion Baldo Wells MD [facility] [place] [address] [place] [address] Referral ID Status Reason Start Date Expiration Date V isits Requested Visits Authorized [id number] Closed Specialty Service Requested 01/29/2018 04/29/2018 4 4 Encounter Details Date Type Department Care Team (Latest Contact Info) Description 02/05/2018 9:43 AM EDT - 02/05/2018 11:59 PM EDT Hospital Encounter [place] [address] Baldo Wells MD [facility] [place] [address] Syncope, unspecified syncope type Discharge Disposition: Home [...] Date/Time Associated Diagnosis Comments NM EXERCISE STRESS CT COMPONENT Routine 02/05/2018 11:46 AM EDT Syncope, unspecified syncope type documented [...] reportedseparately. Baldo Wells MD IMG NM ORDERABLES documented in this encounter Visit Diagnoses Diagnosis Syncope, unspecified syncope type documented in this encounter Care Teams First Helper Relationship Specialty Start Date End Date Terrance Alves MD [address] [place] [address] PCP - General Internal Medicine 01/12/18 documented as of this encounter
--- OUTSIDE RECORDS SUMMARY | 2024-03-26 16:33 | XMS_ITS | Encounter Summary ---
Author Organization [facility] [place] [address] Care Team Providers Care Inspector Brake Lining Name Role Phone Terrance Alves MD Primary Care Provider [phone] Encounter Details Date Type Department Care Team (Latest Contact Info) Description 03/14/2022 9:00 AM EDT Clinical [place] [phone] Toxic effect of venom of bees, accidental [...] Sign Reading Time Taken Comments Blood Pressure 114/84 03/14/2022 9:14 AM EDT Pulse 65 03/14/2022 9:14 AM EDT Temperature - - Respiratory Rate - - Oxygen Saturation 97% 03/14/2022 9:14 AM EDT Inhaled Oxygen Concentration - - Weight - - Height - - Body Mass Index - - documented in this encounter Progress Notes * Haylee Sosa RN - 03/14/2022 9:00 AM EDT Patient presented to appointment, epipen 03/11/22. Did not receive injections. Rx pended to provider. documented in this encounter Plan of Treatment Not on file documented as of this encounter Visit Diagnoses Diagnosis Toxic effect of venom of bees, accidental (unintentional), initial encounter documented in this encounter Care Teams Inspector Brake Lining Relationship Specialty Start Date End Date Terrance Alves MD [address] [place] [address] PCP - General Internal Medicine 01/12/18 documented as of this encounter
--- OUTSIDE RECORDS SUMMARY | 2024-03-26 16:33 | XMS_ITS | Encounter Summary ---
Author Organization [facility] Address [address] [place] [address] Care Team Providers Care Hot Metal Mixer Operator Name Role Phone Terrance Alves MD Primary Care Provider [phone] Encounter Details Date Type Department Care Team (Late st Contact Info) Description 05/12/2021 Lab Requisition [facility] Pathology & Laboratory Medicine - [address] [address] Outr Resulting Lab, Provider Social History Tobacco [...] Procedure Name Priority Date/Time Associated Diagnosis Comments HOLD SST Today 05/12/2021 12:35 EST HEPATITIS C AB W REFLEX TO HCV RNA BY PCR Today 05/12/2021 12:35 EST HEPATITIS B CORE ANTIBODY (TOTAL) Today 05/12/2021 12:35 EST HEPATITIS B SURFACE ANTIGEN Today 05/12/2021 12:35 EST documented in this encounter Results * HOLD SST (05/12/2021 12:35 EST) Hold Hold 05/12/2021 23:15 EST [facility] Blood VENOUS BLOOD / Unknown 05/12/2021 12:35 EST 05/12/2021 22:05 EST Provider Outr Resulting Lab LAB INFO SER VICE AND SUPPORT & PHONE RESULT Performing Organization Address City/[facility]/ZIP Co de Phone Number [facility] [address] [place] [address] * HEPATITIS B CORE ANTIBODY (TOTAL) (05/12/2021 12:35 EST) Hepatitis B Core Ab, Total Negative Negative 05/13/2021 11:15 EST [facility] Blood VENOUS BLOOD / Unknown 05/12/2021 12:35 EST 05/12/2021 22:03 EST Provider Outr Resulting Lab CHEMISTRY & BLOOD GAS ORDERABLES Performing Organization Address City/[facility]/ZIP Co de Phone Number [facility] [address] [place] [address] * HEPATITIS B SURFACE ANTIGEN (05/12/2021 12:35 EST) Hep B Surface Ag Negative Negative 05/13/2021 10:39 EST [facility] Blood VENOUS BLOOD / Unknown 05/12/2021 12:35 EST 05/12/2021 22:03 EST Provider Outr Resulting Lab CHEMISTRY & BLOOD GAS ORDERABLES Performing Organization Address City/[facility]/ZIP Co de Phone Number [facility] [address] [place] [address] * HEPATITIS C AB W REFLEX TO HCV RNA BY PCR (05/12/2021 12:35 EST) Hep C Antibody Negative Negative 05/13/2021 11:14 EST [facility] Blood VENOUS BLOOD / Unknown 05/12/2021 12:35 EST 05/12/2021 22:03 EST Provider Outr Resulting Lab CHEMISTRY & BLOOD GAS ORDERABLES Performing Organization Address City/State/[facility] Co de Phone Number [facility] [address] [place] [address] documented in this encounter Visit Diagnoses Not on filedocumented in this encounter Care Teams Hot Metal Mixer Operator Relationship Specialty Start Date End Date Terrance Alves MD [address] [place], [place] [address] PCP - General 06/15/18 documented as of this encounter
--- OUTSIDE RECORDS SUMMARY | 2024-03-26 16:33 | XMS_ITS | Encounter Summary ---
Author Organization [facility] Address [address] [place] [address] Care Team Providers Care Postal Sorting Officer Name Role Phone Terrance Alves MD Primary Care Provider [phone] Encounter Details Date Type Department Care Team (Late st Contact Info) Description 05/12/2021 Lab Requisition [facility] Pathology & Laboratory Medicine - [address] [address] Outr Resulting Lab, Provider Social History Tobacco [...] Procedure Name Priority Date/Time Associated Diagnosis Comments CHLAMYDIA/N. GONORRHOEAE AMPLIFIED NUCLEIC ACID Routine 05/12/2021 12:45 EST documented in this encounter Results * CHLAMYDIA/N. GONORRHOEAE AMPLIFIED RNA (05/12/2021 12:45 EST) Neisseria gonorrhoeae Result Negative Negative 05/13/2021 15:29 EST [facility] Chlamydia trachomatis Result Negative Negative 05/13/2021 15:29 EST [facility] Urine URINE / Unknown 05/12/2021 1 2:45 EST 05/12/2021 21:47 EST Provider Outr Resulting Lab MICROBIOLOGY - GENERAL ORDERABLES [facility] [address] [place] [address] documented in this encounter Visit Diagnoses Not on filedocumented in this encounter Care Teams Postal Sorting Officer Relationship Specialty Start Date End Date Terrance Alves MD [address] [place] [address] PCP - General 06/15/18 documented as of this encounter
--- OUTSIDE RECORDS SUMMARY | 2024-03-26 16:33 | XMS_ITS | Encounter Summary ---
Author Organization [facility] [place] [address] Care Team Providers Care Non Clinical Advisor Name Role Phone Terrance Alves MD Primary Care Provider [phone] Encounter Details Date Type Department Care Team (Latest Contact Info) Description 04/11/2022 9:00 AM EDT Clinical [place] [phone] Toxic effect of venom of bees, accidental [...] Reading Time Taken Comments Blood Pressure 116/74 04/11/2022 10:17 AM EDT Pulse 73 04/11/2022 10:17 AM EDT Temperature - - Respiratory Rate - - Oxygen Saturation 97% 04/11/2022 10:17 AM EDT Inhaled Oxygen Concentration - - Weight - - Height - - Body Mass Index - - documented in this encounter Progress Notes * Haylee Sosa RN - 04/11/2022 9:00 AM EDT Patient: Baldo Carty . 1980 [id number] Documentation of screening pre-immunotherapy questionnaire responses See [...] the past 24 hrs: Pulse BP SpO2 04/11/22 1017 73 116/74 97 % Injections given: Building (STOCK VIALS) Extract: Mixed Vespid Dilution: 0.03mcg/mL Dose: 0.1mL Site: left upper arm subcutaneous upper Rxn: < palm EXP: 04/11/22 LOT #: [id number] EEG TECH:JasonisterStier Extract: Wasp Dilution 0.01mcg/mL Dose: 0.1mL Site: right upper arm subcutaneous upper Rxn: none EXP: 04/11/22 LOT #: [id number] EEG TECH:Catatier Extract: Honeybee Dilution: 0.01mcg/mL Dose: 0.1mL Site: right upper arm subcutaneous lower Rxn: none EXP: 04/11/22 LOT#: [id number] EEG TECH:911 PetsJose Carlostier Patient was observed here in the waiting area for 30 minutes. No adverse side effects were noted. Patient ambulated from clinic in stable condition. documented in this encounter Plan of Treatment Not on file documented as of this encounter Visit Diagnoses Diagnosis Toxic effect of venom of bees, accidental (unintentional), initial encounter documented in this encounter Care Teams Non Clinical Advisor Relationship Specialty Start Date End Date Terrance Alves MD [address] [place] [address] PCP - General Internal Medicine 01/12/18 documented as of this encounter
--- OUTSIDE RECORDS SUMMARY | 2024-03-26 16:33 | XMS_ITS | Encounter Summary ---
Author Organization [facility] Address [address] [place] [address] Care Team Providers Care Rough Patcher Name Role Phone Unavailable Primary Care Provider Unavailabl e Encounter Details Date Type Department Care Team (Latest Contact Info) Description 07/04/2001 18:22 EST Hospital Encounter [facility] Emergency Department - [facility] [address] [place] [address] Emergency, Default, MD Discharge Disposition: Home or [...]
--- OUTSIDE RECORDS SUMMARY | 2024-03-26 16:33 | XMS_ITS | Encounter Summary ---
Author Organization [facility] Address [facility] [address] Care Team Providers Care Event Coordinator Marketing And Sales Name Role Phone Terrance Alves MD Primary Care Provider [phone] Encounter Details Date Type Department Care Team (Latest Contact Info) Description 03/08/2022 9:30 AM EDT TH Visit (TeleHealth) [place] [address] Jayda Beckham MD [facility] [address] [address] Desensitization to allergens; Allergic reaction to insect sting, accidental or unintentional, subsequent encounter; Allergic reaction after allergen immunotherapy Social History Tobacco Use Types Packs/Day Years Used Date Smoking Tobacco: Former Cigarettes Q uit: 2001 Smokeless Tobacco: Never Sex and Gender Information Value Date Recorded Sex Assigned at Not on file Gender Identity Not on file Sexual Orientation Not on file documented as of this encounter Progress Notes * Jayda Beckham MD - 03/08/2022 9:30 AM EDT CC: VIT reaction HPI: Baldo Carty Jr. is a 41 y.o. 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 [...] yellowjacket, yellow hornet, white hornet, wasp. With another sting he lost consciousness within 15 minutes that he felt his blood pressure dropped, had the urge to urinate andhave a bowel movement, felt his heart was racing and trouble remembering to breathe. He was given epinephrine which did not seem to help and the dizziness was prolonged. On February 04, 2022 he startedvenom immunotherapy with mixed vespid, wasp, honeybee. He returns today because he is experiencing reactions to venom immunotherapy After 1st shot: Tightness in chest Not [...] his chest not catching breath as usual [place] like he was going to have a heart attack, this was unusual bc he mountain bikes regularly Next day biked again and was fine Took benadryl, shot was in AM, didn't realize it was not a long acting antihistamine No bad local reaction Second dose got the same dose Still had the chest tightness - maybe in car on ride home, ~1.5h, noticeable but did not interfere with activity Lasted most of day HR was better that day but did not exercise or do anything strenuous 2d later went biking and was fine Took claritin the second time Not stung since doing shots but had a close call last - almost stung at work ASSESSMENT/PLAN: 41 y.o. male with insect sting allergy on VIT experiencing VIT side effects including chest tightness and tachycardia. This occurred on the first dose. It could be that he had only taken a short acting antihistamine the first time, but I don't think this fully explains that. I do think we likely need to go back on his shot dose to an even lower dose. Some patients need to start lower. Potentially if we are unable to advance and we could also add Xolair if needed. The fact that he is experiencing the symptoms with his shots indicates to me that he is quite reactive. If there is question as to whether or not he is having a bad reaction we could also get a tryptase. We will recommend the following custom protocol: 0.001mcg/mL dose 0.1mL 0.001mcg/mL dose 0.3mL 0.001mcg/mL dose 0.5mL 0.001mcg/mL dose 0.8mL 0.01mcg/mL dose 0.1mL 0.01mcg/mL dose 0.05mL 0.1mcg/mL dose 0.1mL 0.1mcg/mL dose 0.5mL Then resume regular protocol I encouraged him to continue taking a long-acting antihistamine the day of his shot as well as continuing it the weekend after his shot for 2 to 3 days. Finally we discussed the role that exercise can sometimes have in tipping people over into having allergic reactions. This usually does not extend into the days after the shot, though. Ideally we solve this by adjusting his dose and starting at a lower dose. It would be very difficult for quality of life to not be able to exercise for several days after getting an allergy shot for this patient. Jayda Beckham MD documented in this encounter Plan of Treatment Not on file documented as of this encounter Procedures Procedure Name Priority Date/Time Associated Diagnosis Comments ALLERGY SCAN 03/08/2022 12:00 AM EDT documented in this encounter Results * SCAN DOC: ALLERGY (03/08/2022 12:00 AM EDT) Narrative 03/08/2022 12:00 AM EDT Ordered by an unspecified provider. Scanning Provider MEDIA MGR SCAN EXT O RDR/RSLT documented in this encounter Visit Diagnoses Diagnosis Desensitization to allergens Need for desensitization to allergens Allergic reaction to insect sting, accidental or unintentional, subsequent encounter Allergic reaction after allergen immunotherapy documented in this encounter Care Teams Event Coordinator Marketing And Sales Relationship Specialty Start Date End Date Terrance Alves MD [address] [place] [address] PCP - General Internal Medicine 01/12/18 documented as of this encounter
--- OUTSIDE RECORDS SUMMARY | 2024-03-26 16:33 | XMS_ITS | Encounter Summary ---
[place] [address] Care Team Providers Care Flagsetter Name Role Phone Terrance Alves MD Primary Care Provider Encounter Details Date Type Department Care Team (Latest Contact Info) Description 04/11/2022 Travel Social History Tobacco Use Types Packs/Day [...] on filedocumented in this encounter Care Teams Flagsetter Relationship Specialty Start Date End Date Terrance Alves MD [address] [place] [address] PCP - General Internal Medicine 01/12/18 documented as of this encounter
--- OUTSIDE RECORDS SUMMARY | 2024-03-26 16:33 | XMS_ITS | Encounter Summary ---
Author Organization [facility] [place] [address] Care Team Providers Care Car Electronics Installer Name Role Phone Terrance Alves MD Primary Care Provider [phone] Encounter Details Date Type Department Care Team (Late st Contact Info) Description 09/17/2018 [place] [address] Jayda Beckham MD [facility] [address] [address] Social History Tobacco Use Types Packs/Day Years Used Date Smoking Tobacco: Former Cigarettes Q uit: 2001 Smokeless Tobacco: Never Sex and Gender Information Value Date Recorded Sex Assigned at Not on file Gender Identity Not on file Sexual Orientation Not on file documented as of this encounter Miscellaneous Notes * Telephone Encounter - Otilia Clarke - 09/17/2018 4:12 PM EDT Left message to call back and let us know if he has an appointment in [place] yet. documented in this encounter Plan of Treatment Not on file documented as of this encounter Visit Diagnoses Not on filedocumented in this encounter Care Teams Car Electronics Installer Relationship Specialty Start Date End Date Terrance Alves MD [address] [place] [address] PCP - General Internal Medicine 01/12/18 documented as of this encounter
--- OUTSIDE RECORDS SUMMARY | 2024-03-26 16:33 | XMS_ITS | Encounter Summary ---
Author Organization [facility] Address [address] [place] [address] Care Team Providers Care Independent Contractor Name Role Phone Terrance Alves MD Primary Care Provider [phone] Encounter Details Date Type Department Care Team (Late st Contact Info) Description 05/12/2021 Lab Requisition [facility] Pathology & Laboratory Medicine - [address] [address] Outr Resulting Lab, Provider Social History Tobacco [...] Procedure Name Priority Date/Time Associated Diagnosis Comments HIV 1/2 ANTIGEN AND ANTIBODY, 4TH GENERATION Routine 05/12/2021 12:35 EST documented in this encounter Results * HIV 1/2 ANTIGEN AND ANTIBODY, 4TH GENERATION (05/12/2021 12:35 EST) HIV 1 and 2 Antibody/p24 Antigen, 4th Generation Negative Negative 05/13/2021 11:19 EST [facility] Comment:If acute HIV-1 infec tion is suspected in a high risk patient, submit plasma specimen for HIV-1 RNA quantitation test. Blood VENOUS BLOOD / Unknown 05/12/2021 12:35 EST 05/12/2021 22:03 EST Narrative [facility] - 05/13/2021 11:19 EST Fourth Generation assay performed on the Siemens JournallyMeaur XPT. Provider Outr Resulting Lab IMMUNOLOGY A ND SEROLOGY ORDERABLES [facility] [address] [place] [address] documented in this encounter Visit Diagnoses Not on filedocumented in this encounter Care Teams Independent Contractor Relationship Specialty Start Date End Date Terrance Alves MD [address] [place], [place] [id number] PCP - General 06/15/18 documented as of this encounter
--- OUTSIDE RECORDS SUMMARY | 2024-03-26 16:33 | XMS_ITS | Encounter Summary ---
Author Organization [facility] Address [address] [place] [address] Care Team Providers Care Senior Reactor Operator Name Role Phone Terrance Alves MD Primary Care Provider [phone] Reason for Visit * Reason Comments Eye Problem ERV dark vision left eye s/p cataract surgery 06/13/[address] Piña Encounter Details Date Type Department Care Team (Late st Contact Info) Description 06/15/2018 17:00 EST Office Visit [facility] Ophthalmology - [facility] [address] [place], [place] [id number] Jarrett Phan MD [address] [facility], [address] [place] [address] Social History Tobacco Use Types Packs/Day Years Used Date Smoking Tobacco: Never Smokeless Tobacco: Never Sex and Gender Information [...] No 06/15/2018 documented as of this encounter Progress Notes * Jarrett Phan MD - 06/15/2018 1700 EST Chief Complaint Patient presents with ??? Eye Problem ERV dark vision left eye s/p cataract surgery 06/13/[address] Piña HPI: Pt noticed shimmering in temporal visual field today left eye. Worse with walking. Bouncing quality. Location: Left eye Pain: 0 - No pain Quality: Blurry Severity: Moderate Duration: Days Timing: Lasts: Context: Patient had cataract surgery left eye 06/13/[address] Piña cataract caused by injury to retina as a child by a bungee cord to the eye. Modifying factors: After surgery on his way home he was vomitting violently. Saw Dr. Piña yesterday who thought vomitting was due to prolonged anesthesia because surgery took longer than anticipated. Associated Signs & Symptoms: Patient notes had sheild on eye when went to bed but woke up and was rubbing his eye. Sheild had fallen off. Seems to have a shimmering effect temp to vision and vision is very dark. Has floaters but was told could be medicine floating in vision. No flashes of light. Visual Fluctuations: Floaters Attestation: The above HPI has been reviewed by the Attending Physician Base Eye Exam Visual Acuity (Snellen - Linear) Right Left Dist sc 20/20 20/50 Dist ph sc 20/25 Tonometry (Applanation, 17:19) Right Left Pressure 9 Pupils Dark React Right 6 4 Left 2 Minimal Visual Kong (Counting fingers) Right Left Full Restrictions Partial outer superior nasal deficiency Extraocular Movement Right Left Full Full Neuro/Psych Oriented x3: Yes Mood/Affect: Normal Dilation Left eye: 1.0% Mydriacyl, 2.5% Phenylephrine @ 17:23 Slit Lamp and Fundus Exam External Exam Right Left External Normal Normal Slit Lamp Exam Right Left Lids/Lashes Normal Normal Conjunctiva/Sclera White and quiet White and quiet Cornea Clear Clear Anterior Chamber Deep and quiet trace cell, no hypopyon Iris Round and reactive small pupil Lens clear lens Posterior chamber intraocular lens Vitreous pt requested left eye only clear Fundus Exam Right Left Disc dark pigmentation surrounding Macula pigment deposits nasal to mac just adjacent to fovea, mottling, Vessels Normal Periphery Normal, no RD, RT on 360SD Please refer to large retinal drawing. 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 Vitreous prolapse of left eye PLAN: 1. New visual phenomenon left eye following cataract extraction with vitreous prolapse (I believe anterior vitrectomy was performed) 2 days ago Was routinely referred to [facility] for #2 below, but then emergently here today given new symptoms. Op-note unavailable. Suspect Positive dysphotopsia left eye Retina flat 360, no evidence retinal detachment or horseshoe tear on scleral depressed examination. Retinal detachment symptoms were reviewed with the patient. The patient was instructed to return immediately for flashing lights, floaters in the vision, or curtaining of the vision. 2. Posterior choroidal rupture left eye, pre-existing Return when back in [place] here or RCV per pt preference. I, Dr. Jarrett Phan, have performed my own HPI and reviewed the tech's ROS. I have also reviewed the patient's past medical, family, social and surgical history, as well as the patient's medications, allergies, and problem list. I am scribing for Dr. Jarrett Phan MD while he is personally performing the service. NEGIN ALEJO (Scribe) documented in this encounter Consult Notes * Jarrett Phan MD - 06/15/2018 0000 EST [facility] OPHTHALMOLOGY CONSULTATION - 06/15/2018 Yasir Piña MD [facility] [address] [address] Dear Darek: I had the pleasure of seeing Mr Baldo Carty in vitreoretinal consultation on the 15 of June. As you know, he is a very pleasant 38-year-old man with a prior history of blunt trauma to his left eye and recent cataract extraction on the 13 of June. He was noticing some shimmering in his temporal visual field that he felt like was a bouncing quality that was worse when he walked or moved his head. On physical examination, the visual acuity was 20/20 in the right eye, 20/50 in the left eye with pinhole improvement to 20/25. Intraocular pressure in the left eye was 9. Anterior segment examination of the left eye revealed trace cells without evidence of hypopyon. The pupil was quite small and nonreactive. There was a well-positioned posterior chamber intraocular lens that appeared to me to [place] 1 piece lens. Dilated funduscopic examination of the left eye revealed clear vitreous. There was some dark pigmentation surrounding the optic nerve head as well as nasal to the macula that went just adjacent to the fovea. There was some mottling of the macula. Peripheral examination was grossly normal with no evidence of retinal detachment, retinal tear on 360 degrees gentle scleral depressed examination. Mr Carty is having some new visual phenomena in his left eye following cataract extraction. I do not have access to his operative note, but I believe that an anterior vitrectomy was performed. Given his normal peripheral retinal examination without any evidence of retinal tear or retinal detachment, he may be experiencing some hopefully transient lens related images. Based on the nature of him seeing them just when moving the head and the bouncing quality, I think this may be the case. As the lens settles in place, I think he can hope that these may be less noticeable to him. We did review incareful detail the signs and symptoms of retinal detachment, and he knows he will need to seek care immediately if any of these develop. He left here with a plan to follow up in approximately 1 month's time. I do note that he was routinely referred to [facility] due to this preexisting choroidal rupture in his left eye, and then was referred here emergently due to his new symptoms. He had not decided where he would seek followup for each of these issues in the future. Of course, I am happy to see him at any time, but he will consider his followup options and make a decision. Of note, he is doing some traveling for the next 2 or 3 weeks and so he will follow up upon his return to [place], but he knows he may need to seek care while traveling if something changes. Thank you very much for allowing me to participate in the care of this very pleasant gentleman. Sincerely, Jarrett Phan MD 12 38 PM - Jarrett Phan MD cn Dictation ID: [id number] cc: Yasir Piña MD, [facility] [address] [address] Terrance Alves MD, [facility] [address], [place] [address] documented in this encounter Plan of Treatment Not on file documented as of this encounter Visit Diagnoses Diagnosis Choroidal rupture of left eye- Primary Choroidal rupture Positive dysphotopsia Vitreous prolapse of left eye Vitreous prolapse documented in this encounter Historical Medications * This list may reflect changes made after this encounter. Medication Sig Dispensed Refills Start Date End Date prednisolon/gatiflox/bromf enac (PREDNISOL [id number] OPHTHALMIC) Place 1 Drop into the left eye 4 times daily. EPINEPHrine (EPIPEN JR) 0.15 mg/0.3 mL injection Inject 0.15 mg into the muscle once as needed. added in this encounter Eye Exam Visual Acuity (Snellen - Linear) Right eye Left eye Dist sc 20/20 20/50 Dist ph sc 20/25 Tonometry (Applanation, 17:19) Right eye Left eye Pressure 9 Pupils Dark React Right eye 6 4 Left eye 2 Minimal Visual Kong (Counting fingers) Right eye Left eye Full Restrictions Partial outer milligan perior nasal deficiency Extraocular Movement Right eye Left eye Full Full Neuro/Psych Oriented x3: Yes Mood/Affect: Normal Dilation Left eye: 1.0% Mydriacyl, 2. 5% Phenylephrine @ 17:23 External Exam Right eye Left eye External Normal Normal Slit Lamp Exam Right eye Left eye Lids/Lashes Normal Normal Conjunctiva/Sclera White and quiet White and maddy et Cornea Clear Clear Anterior Chamber Deep and quiet trace cell, no hypopyon Iris Round and reactive small pupil Lens clear lens Posterior chambe r intraocular lens Vitreous pt requested left eye only clear Fundus Exam Right eye Left eye Disc dark pigmentatio n surrounding Macula pigment deposits nasal to mac just adjacent to fovea, mottling, Vessels Normal Periphery Normal, no RD, R T on 360SD Care Teams Senior Reactor Operator Relationship Specialty Start Date End Date Terrance Alves MD [address] [place] [address] PCP - General 06/15/18 documented as of this encounter
--- OUTSIDE RECORDS SUMMARY | 2024-03-26 16:33 | XMS_ITS | Encounter Summary ---
Author Organization [facility] [place] [address] Care Team Providers Care Tobacco Warehouse Manager Name Role Phone Terrance Alves MD Primary Care Provider [phone] Encounter Details Date Type Department Care Team (Latest Contact Info) Description 02/05/2018 9:43 AM EDT - 02/05/2018 11:59 PM EDT Hospital Encounter [place] [id number] Baldo Wells MD [facility] [place] [address] Syncope, unspecified syncope type Discharge Disposition: Home [...] Procedure Name Priority Date/Time Associated Diagnosis Comments NUCLEAR EXERCISE STRESS CARDIOLOGY Routine 02/05/2018 11:08 AM EDT Syncope, unspecified syncope type documented in this encounter Results * Nuclear Exercise Stress Cardiology (02/05/2018 11:08 AM EDT) Anatomical Region Laterality Modality Other Baldo Wells MD CARDI[facility] SERVICES ORD ERABLES documented in this encounter Visit Diagnoses Diagnosis Syncope, unspecified syncope type documented in this encounter Care Teams Tobacco Warehouse Manager Relationship Specialty Start Date End Date Terrance Alves MD [address] [place] [address] PCP - General Internal Medicine 01/12/18 documented as of this encounter
[2024-03-26 16:55] LABS: ALT 55 U/L (16-63); AST 31 U/L (15-37); Albumin 4.2 g/dL (3.4-5.0); Alkaline Phosphatase 62 U/L (46-116); Anion Gap 10.5 mmol/L (3-11); BUN 12 mg/dL (7-18); Bilirubin, Total 0.41 mg/dL (0.2-1.0); CO2 26.5 mmol/L (21.0-32.0); CREATININE 0.9 mg/dL (0.70-1.30); Calcium 9.7 mg/dL (8.5-10.1); Calculated LDL 170 mg/dL (<100); Chloride 105 mmol/L (98-107); Cholesterol 278 mg/dL (<200); Estimated GFR 108.68 (mL/min/1.73m2); Glucose 87 mg/dL (74-106); HDL Cholesterol 65 mg/dL (40-60); Potassium 4.4 mmol/L (3.5-5.1); Sodium 142 mmol/L (136-145); Total Protein 7.8 g/dL (6.4-8.2); Triglyceride 219 mg/dL (<150)
== END 2024-03-26 16:29 | disposition home or self-care (01) ==
LOC: NCHCN 16:28
PROVIDERS: PCP Family Medicine; Visit Provider Family Medicine
DX: K76.0 Fatty (change of) liver, not elsewhere classified (principal)
CPT/HCPCS: 80053; 80061; 85027

== ENCOUNTER 2025-01-17 20:17 | Emergency (ER) | payer OTHER, SELFPAY ==
[2025-01-17 20:31] VITALS: BP 137/80; PULSE 76; RESP 18; TEMP 36.6; O2SAT 97
[2025-01-17 21:01] LABS: Abs Immature Grans 0.02 10^3/uL (0.0-0.06); HCT 42.4 % (40.0-50.0); HGB 14.5 g/dL (13.5-17.5); Immature Grans % 0.2 %; MCH 30.1 pg (27.0-33.0); MCHC 34.2 % (32.0-36.0); MCV 88 fL (80-95); MPV 10.0 fL (8.0-11.0); Platelet Count 277 10^3/uL (130-400); RBC 4.81 10^6/uL (4.36-5.78); RDW 13.1 % (11.8-14.1); RDW-SD 42.7 fL; WBC 8.39 10^3/uL (4.4-10.8)
[2025-01-17 21:22] LABS: ALT 41 U/L (16-63); AST 22 U/L (15-37); Albumin 4.1 g/dL (3.4-5.0); Alkaline Phosphatase 50 U/L (46-116); Anion Gap 5.9 mmol/L (3-11); BUN 11 mg/dL (7-18); Bilirubin, Total 0.3 mg/dL (0.2-1.0); CO2 30.1 mmol/L (21.0-32.0); Calcium 9.1 mg/dL (8.5-10.1); Chloride 103 mmol/L (98-107); Estimated GFR 95.18 (mL/min/1.73m2); Glucose 122 mg/dL (74-106); Lipase 48 U/L (<78); Magnesium 2.0 mg/dL (1.8-2.4); Potassium 3.9 mmol/L (3.5-5.1); Sodium 139 mmol/L (136-145); Total Protein 7.7 g/dL (6.4-8.2)
[2025-01-17] MEDS: Omnipaque 350 MG/ML 100 ML BTL IJ (21:24)
[2025-01-17] MEDS: Normal Saline - Diluent 50 ML VIAL IJ (21:24)
--- NOTE | 2025-01-17 21:25 | DI.CT_ITS ---
Exam(s) CT ABDOMEN PELVIS W EXAM: CT ABDOMEN PELVIS W CLINICAL HISTORY: R sided abd pain TECHNIQUE: Imaging Protocol: Axial computed tomography images with coronal and sagittal reformatted images were created and reviewed. CONTRAST MATERIAL: Intravenous: Omnipaque 350 Contrast volume:100 mL Oral: No COMPARISON: No exams were available for comparison FINDINGS: ABDOMEN: Lung Bases: No acute abnormality. Liver: Normal density. No measurable mass. Portal, Superior Mesenteric, and Splenic Veins: Unremarkable. Gallbladder and Biliary Tract: No radiodense calculus or dilation. Pancreas: Normal density, no abnormal calcifications or inflammatory process. Spleen: Normal. Adrenals: No masses seen. Kidneys: Normal size, contour and axis. There is left nephrolithiasis without obstructive uropathy. There is a 3 mm stone in the proximal right ureter with minimal hydronephrosis present. There are renal cysts present. No follow-up is recommended. Abdominal Aorta: Abdominal portion non-dilated. Bowel: No obstruction or bowel wall thickening. There are scattered diverticula seen in the sigmoid colon but no evidence of acute diverticulitis. Appendix is unremarkable. Peritoneal Cavity: No ascites, collection or mesenteric inflammatory response. No free air. Lymph Nodes: Within normal limits. Bones: Within normal limits for the patient's age. Soft Tissues: There is a small fat containing umbilical hernia. PELVIS: Bladder: Symmetric distention, no gross wall thickening. Reproductive Organs: Unremarkable as visualized. Lymph Nodes: Within normal limits. Bones: Within normal limits for the patient's age. IMPRESSION: 1. 3 mm proximal right ureteral stone with minimal hydronephrosis. 2. Left nephrolithiasis. 3. The preliminary [facility] report was reviewed. RADIATION DOSE DELIVERED: 551.59mGy.cm Total DLP DATA REPOSITORY: All CT scans at this facility are submitted to the National Radiology Data Registry (NRDR) Dose Index Registry (DIR) with the [employer] (A[employer]). RADIATION OPTIMIZATION: All CT scans at this facility use at least one of these dose optimization techniques: automated exposure control; mA and/or kV adjustment per patient size (includes targeted exams where dose is matched to clinical indication); or iterative reconstruction.
--- NOTE | 2025-01-17 21:48 | ED.GENADUL_ITS ---
Discharge Plan Disposition Patient Disposition: Home Discharge Details Clinical Impression: Kidney stone, Renal cyst Primary Care Provider: Suyapa Felton ED Provider: Victorina Maya Home Meds and New Rx's Prescriptions: New tamsulosin [Flomax] 0.4 mg capsule 0.4 mg PO DAILY Qty: 14 0RF No Action epinephrine [EpiPen 2-Toi] 0.3 MG/0.3 ML auto-injector 0.3 mg IJ PRN PRNQty: 1 0RF Discharge Instructions Additional Instructions: A referral has been placed to urology for follow-up on your kidney stone. Please call your primary care provider on Monday morning to schedule follow-up appointment There were also incidental findings of simple appearing cysts on the right kidney, as well as a few stones and a cyst on the left kidney as well. These should be monitored by your primary care provider Use the urine strainer every time you urinate. For pain control I recommend that you use ibuprofen 800 mg every 8 hours. Do not drink alcohol while you are taking this. You also to take Flomax, which will help you pass the stones. Stay well hydrated, drinking plenty of fluid throughout the day. Return to emergency care if you develop new fevers, uncontrollable vomiting, severe abdominal or back pain, inability to urinate/empty your bladder, or if you are very worried and need to be rechecked again immediately Referrals: [facility] [Provider Group] HPI General Date/Time Provider Initiated Documentation: 01/17/25 20:28 . HPI Narrative: Baldo is a 44-year-old male who presents to the emergency department today for evaluation of excruciating right sided lower abdominal pain. Reports pain started this afternoon around [address] home, has progressively worsened since onset, described as a burning sensation and a dull ache in the back. This is accompanied by feeling of chills and nausea. Denies associated fever, vomiting, chest pain, difficulty breathing, change in bowel or bladder function, numbness in legs. No history of abdominal surgeries. Consu mes 1 drink per night. Denies significant past medical history. Related Data Home Medications ?Medication ?Instructions ?Recorded ?Confirmed epinephrine 0.3 mg/0.3 mL 0.3 mg (0.3 mL) IJ PRN PRN # #1 01/05/18 01/17/25 injection, auto-injector (EpiPen 2-Toi) tamsulosin 0.4 mg capsule (Flomax) 0.4 mg PO DAILY #14 caps 01/17/25 Previous Rx's ?Medication ?Instructions ?Recorded epinephrine 0.3 mg/0.3 mL 0.3 mg (0.3 mL) IJ PRN PRN # #1 01/05/18 injection, auto-injector (EpiPen 2-Toi) tamsulosin 0.4 mg capsule (Flomax) 0.4 mg PO DAILY #14 caps 01/17/25 Allergies Allergy/AdvReac Type Severity Reaction Status Date / Time bee venom protein (honey bee) Allergy Anaphylaxis Verified 01/17/25 20:34 General Stated Complaint: Abd Prob HERMAN: 3 Exam Narrative Exam Narrative: General Appearance: Normal. Patient is alert and oriented, holding right side of abdomen Vital signs: Within normal limits. Gastrointestinal: Tenderness on right side of abdomen. Abdomen soft, nondistended, nontender to palpation, no masses palpable. Normoactive bowel sounds. No CVA tenderness. Neurological: All extremities equally. Skin: Warm and dry, no rash. Psychiatric: Normal. Course Vital Signs Vital signs: Vital Signs Temperature 36.6 C 01/17/25 20:31 Pulse 76 01/17/25 20:31 Respiratory Rate 18 01/17/25 20:31 Blood Pressure 137/80 01/17/25 20:31 Pulse Oximetry 97 01/17/25 20:31 Temperature 36.6 C 01/17/25 20:31 Pulse 76 01/17/25 20:31 Respiratory Rate 18 01/17/25 20:31 Blood Pressure 137/80 01/17/25 20:31 Blood Pressure Position Sitting 01/17/25 20:31 Pulse Oximetry 97 01/17/25 20:31 Oxygen Delivery Method Room Air 01/17/25 20:31 Oxygen Flow Rate 0 01/17/25 20:31 Lab/Test Results Lab/Test Results: Laboratory Tests Range/Units 01/17/25 20:47 WBC (4.4-10.8) 10^3/uL 8.39 RBC (4.36-5.78) 10^6/uL 4.81 Hgb (13.5-17.5) g/dL 14.5 Hct (40.0-50.0) % 42.4 MCV (80-95) fL 88 MCH (27.0-33.0) pg 30.1 MCHC (32.0-36.0) % 34.2 RDW (11.8-14.1) % 13.1 Plt Count (130-400) 10^3/uL 277 MPV (8.0-11.0) fL 10.0 Immature Gran % % 0.2 Neutrophils % % 58.8 Lymphocytes % % 28.8 Monocytes % % 9.2 Eosinophils % % 2.5 Basophils % % 0.5 Nucleated RBC % (0.0-0.3) % 0.0 Absolute Neutrophils (1.2-6.7) 10^3/uL 4.93 Absolute Lymphocytes (1.2-3.4) 10^3/uL 2.42 Absolute Monocytes (0.1-0.8) 10^3/uL 0.77 Absolute Eosinophils (0.0-0.7) 10^3/uL 0.21 Absolute Basophils (0.0-0.2) 10^3/uL 0.04 Sodium (136-145) mmol/L 139 Potassium (3.5-5.1) mmol/L 3.9 Chloride (98-107) mmol/L 103 Carbon Dioxide (21.0-32.0) mmol/L 30.1 Anion Gap (3-11) mmol/L 5.9 BUN (7-18) mg/dL 11 Creatinine (0.70-1.30) mg/dL 1.0 Est GFR (CKD-EPI 2020) (mL/min/1.73m2) 95.18 Glucose (74-106) mg/dL 122 H Calcium (8.5-10.1) mg/dL 9.1 Magnesium (1.8-2.4) mg/dL 2.0 Total Bilirubin (0.2-1.0) mg/dL 0.3 AST (15-37) U/L 22 ALT (16-63) U/L 41 Alkaline Phosphatase (46-116) U/L 50 Total Protein (6.4-8.2) g/dL 7.7 Albumin (3.4-5.0) g/dL 4.1 Lipase (<78) U/L 48 Medical Decision Making Initial Assessment: Right sided abdominal pain. Onset of right-sided abdominal pain around 1800 hours, worsening. Pain described as excruciating, burning sensation, dull ache in back. Nausea, no vomiting. No history of abdominal surgeries. Tenderness on palpation. He reports pain has significantly improved since arrival to the emergency department. Differential Diagnosis includes but is not limited to: appendicitis, gastritis, cholecystitis, choledocholithiasis, diverticulitis, nephrolithiasis, pancreatitis ED Course: - Blood work obtained - Abdominal scan obtained - Toradol administered for pain control I independently interpreted the following tests: CBC, CMP, lipase, magnesium. UA significant for large blood, not consistent with UTI CT abd/pelvis significant for mild right hydronephrosis with 3 mm stone in proximal right ureter, as well as 2 simple appearing cysts measuring up to 1.5 cm, and L kidney stones and subcentimeter cortical cyst. Clinical Impression: - Nephrolithiasis - Right kidney cysts Disposition: - Discharge home. Reviewed discharge instructions with patient, including use of ibuprofen, flomax, and urine strainer. Referral made to urology. - Return precautions if pain worsens, fever, vomiting - Follow-Up: Primary care doctor Patient consented to the use of [facility] Imaging Data Radiologic Study: Radiologist's impression: PROCEDURE INFORMATION: Exam: CT Abdomen And Pelvis With Contrast Exam date and time: 01/17/2025 9:11 PM Age: 44 years old Clinical indication: Abdominal pain; Localized; Right sided abd pain TECHNIQUE: Imaging protocol: Computed tomography of the abdomen and pelvis with contrast. Radiation optimization: All CT scans at this facility use at least one of these dose optimization techniques: automated exposure control; mA and/or kV adjustment per patient size (includes targeted exams where dose is matched to clinical indication); or iterative reconstruction. Contrast material: [id number]; Contrast volume: 100 ml; Contrast route: INTRAVENOUS (IV); COMPARISON: US ABDOMEN LIMITED 07/21/2022 9:41 AM FINDINGS: Lungs: The lung bases Heart: Are clear. The heart is not enlarged. No coronary artery calcification. Liver: The liver shows no abnormal focal Gallbladder and biliary ducts: Lesion. No calcified gallstones or biliary dilata tion. Pancreas: The pancreas is unremarkable. No mass or inflammatory process. Spleen: The spleen is not enlarged. There is a subcentimeter splenule along its anterior border. Adrenal glands: The adrenal glands are unremarkable. Kidneys and ureters: Right kidney: There is a mild right hydronephrosis secondary to a 3 mm stone in the proximal right ureter. No additional right-sided stones are present. The right kidney does demonstrate 2 simple cysts measuring 1.4 and 1.5 cm in the inferior pole. The perinephric tissues are normal. Left kidney: Left kidney is not obstructed. It does demonstrate at least 4 nonobstructing stones measuring up to 4 mm. It also contains a subcentimeter cyst in its anterior cortex. Stomach and bowel: There is a small hiatal hernia. There is no gastric outlet obstruction. No small bowel obstruction. There are diverticula of the sigmoid colon but no diverticulitis. Appendix: The appendix is visualized and is normal Intraperitoneal space: No free air or free fluid Vasculature: The abdominal aorta is of normal caliber. No aneurysm or dissection. Lymph nodes: No abnormal para-aortic adenopathy. Urinary bladder: The bladder shows no filling defects. Reproductive: The prostate gland measures 3.9 cm AP x 4.4 cm transverse. Bones/joints: No acute bony change of the lumbar spine or pelvis. Soft tissues: No abnormal soft tissue lesions of the abdominal wall. There is a tiny subumbilical hernia containing fat only. There is a small right inguinal hernia containing fat only. IMPRESSION: 1. Mild right hydronephrosis secondary to a 3 mm stone in the proximal right ureter. 2. The right kidney contains 2 simple appearing cysts measuring up to 1.5 cm. 3. The left kidney demonstrates several nonobstructing stones and a subcentimeter cortical cyst. 4. Sigmoid diverticulosis without diverticulitis. 5. No free air or free fluid. PFSH All Active Problems (Updated 01/17/25 @ 23:41 by Victorina Calixto) Renal cyst (Acute) Kidney stone (Chronic) Social History Smoking/Tobacco Use Status: Never Smoking risk assessment performed?: Yes Alcohol Intake: current Alcohol Intake frequency: a few times a week Alcohol type: beer Drug use: Never Substance use type: does not use Do you feel safe at home: Yes Do you feel safe in your relationship?: Yes
--- NOTE | 2025-01-17 22:10 | DI.VRAD_ITS ---
PROCEDURE INFORMATION: Exam: CT Abdomen And Pelvis With Contrast Exam date and time: 01/17/2025 9:11 PM Age: 44 years old Clinical indication: Abdominal pain; Localized; Right sided abd pain TECHNIQUE: Imaging protocol: Computed tomography of the abdomen and pelvis with contrast. Radiation optimization: All CT scans at this facility use at least one of these dose optimization techniques: automated exposure control; mA and/or kV adjustment per patient size (includes targeted exams where dose is matched to clinical indication); or iterative reconstruction. Contrast material: [id number]; Contrast volume: 100 ml; Contrast route: INTRAVENOUS (IV); COMPARISON: US ABDOMEN LIMITED 07/21/2022 9:41 AM FINDINGS: Lungs: The lung bases Heart: Are clear. The heart is not enlarged. No coronary artery calcification. Liver: The liver shows no abnormal focal Gallbladder and biliary ducts: Lesion. No calcified gallstones or biliary dilatation. Pancreas: The pancreas is unremarkable. No mass or inflammatory process. Spleen: The spleen is not enlarged. There is a subcentimeter splenule along its anterior border. Adrenal glands: The adrenal glands are unremarkable. Kidneys and ureters: Right kidney: There is a mild right hydronephrosis secondary to a 3 mm stone in the proximal right ureter. No additional right-sided stones are present. The right kidney does demonstrate 2 simple cysts measuring 1.4 and 1.5 cm in the inferior pole. The perinephric tissues are normal. Left kidney: Left kidney is not obstructed. It does demonstrate at least 4 nonobstructing stones measuring up to 4 mm. It also contains a subcentimeter cyst in its anterior cortex. Stomach and bowel: There is a small hiatal hernia. There is no gastric outlet obstruction. No small bowel obstruction. There are diverticula of the sigmoid colon but no diverticulitis. Appendix: The appendix is visualized and is normal Intraperitoneal space: No free air or free fluid Vasculature: The abdominal aorta is of normal caliber. No aneurysm or dissection. Lymph nodes: No abnormal para-aortic adenopathy. Urinary bladder: The bladder shows no filling defects. Reproductive: The prostate gland measures 3.9 cm AP x 4.4 cm transverse. Bones/joints: No acute bony change of the lumbar spine or pelvis. Soft tissues: No abnormal soft tissue lesions of the abdominal wall. There is a tiny subumbilical hernia containing fat only. There is a small right inguinal hernia containing fat only. IMPRESSION: 1. Mild right hydronephrosis secondary to a 3 mm stone in the proximal right ureter. 2. The right kidney contains 2 simple appearing cysts measuring up to 1.5 cm. 3. The left kidney demonstrates several nonobstructing stones and a subcentimeter cortical cyst. 4. Sigmoid diverticulosis without diverticulitis. 5. No free air or free fluid. Dictated and Authenticated by: Casey Kearns MD. Orderin Attila Prajapati MD
[2025-01-17 23:06] LABS: Glucose Negative (Negative)
[2025-01-17 23:13] LABS: C & S Indicated? No; RBC >50 HPF (0-2); WBC Negative HPF (0-5)
[2025-01-17] MEDS: Tamsulosin 0.4 MG CAPCR PO (23:24)
[2025-01-17] MEDS: Ketorolac 15 MG/ML VIAL IVP (23:24)
[2025-01-17] MEDS: Ondansetron O.D.T. 4 MG TABEF, 3 TABS/BTL PO (23:49)
== END 2025-01-17 23:50 | disposition home or self-care (01) ==
PROVIDERS: Emergency Provider Nurse Practitioner Family; PCP Family Medicine
DX: N20.0 Calculus of kidney (principal); N28.1 Cyst of kidney, acquired; R10.31 Right lower quadrant pain; R11.0 Nausea
CPT/HCPCS: 99284; 99285; 96374; 80053; 83690; 74177; 81003; 81015; 83735; 85025; J1885; J3490

== ENCOUNTER 2025-04-01 10:46 | Outpatient (REF) | payer OTHER, SELFPAY ==
[2025-04-01 16:58] LABS: Calculated LDL 136 mg/dL (<100); Cholesterol 215 mg/dL (<200); HDL Cholesterol 59 mg/dL (>or=40); Triglyceride 100 mg/dL (<150)
== END 2025-04-01 10:47 | disposition home or self-care (01) ==
LOC: NCHCN 10:46
PROVIDERS: PCP Family Medicine; Visit Provider Family Medicine
DX: Z13.220 Encounter for screening for lipoid disorders (principal)
CPT/HCPCS: 80061

== ENCOUNTER → 2025-04-14 02:09 | Outpatient (CLI) | payer OTHER, SELFPAY ==
--- NOTE | 2025-04-14 | DI.RAD_ITS ---
Exam(s) XR SACRUM COCCYX XR SACROILIAC JOINTS EXAM: XR SACROILIAC JOINTS and XR sacrum coccyx CLINICAL HISTORY: SI JOINT DYSFUNCTION,MIDLINE LOW BACK PAIN,M53.3. TECHNIQUE: 2D digital imaging was performed. Seven images were obtained. COMPARISON: There are no priors for comparison. FINDINGS: Bones: No fracture is present. No bony destructive lesion is seen. Alignment is satisfactory. SI Joint:No fusion, erosions or sclerosis is seen. Soft Tissue: Normal. IMPRESSION: Normal radiographs of the SI Joints and sacrum/coccyx. DATA REPOSITORY: RADIATION DOSE DELIVERED:
--- NOTE | 2025-04-14 09:28 | DI.RAD_ITS ---
Exam(s) XR LUMBAR SPINE COMPLETE EXAM: XR LUMBAR SPINE COMPLETE CLINICAL HISTORY: MIDLINE LOW BACK PAIN, SI JOINT DYSFUNCTION,M53.3,M54.5O. TECHNIQUE: 2D digital imaging was performed of the lumbar spine. Five images were obtained. AP, lateral, right oblique, left oblique and L5-S1 spot views were obtained. COMPARISON: No exams were available for comparison FINDINGS: BONES: No fracture or destructive lesion. Vertebral bodies are unremarkable. No facet hypertrophy identified. DISKS: Intervertebral disc spaces are maintained. ALIGNMENT: Lumbar spinal alignment is within normal limits. No spondylolysis or spondylolisthesis. SOFT TISSUE: Normal. IMPRESSION: Unremarkable radiographs of the lumbar spine. DATA REPOSITORY: RADIATION DOSE DELIVERED:
== END ==
LOC: DI 02:10
PROVIDERS: PCP Family Medicine; Visit Provider Family Medicine
DX: M53.3 Sacrococcygeal disorders, not elsewhere classified (principal)
CPT/HCPCS: 72110; 72202; 72220